=== PATIENT | female | born 1995 | race Caucasian/White ===

== ENCOUNTER 2016-07-16 23:51 | Emergency (ER) | payer MEDICAID ==
[~2016-07-16 23:51] MED LIST: AVEL1TAB PO; FLUC10TA PO; GABA300C3 PO; IBUP200T45 PO; INSUDET SC; INSUHUMDS SC; MICR1TAB16 PO; MUCI600T34 PO; VITA200016 PO; birth control pills PO
[2016-07-17] MEDS ORDERED: MORPHINE 4 MG/ML 1ML SYRINGE As Ordered ONE ×2 (01:24→01:52)
[2016-07-17] MEDS ORDERED: ONDANSETRON 4MG/2ML VIAL (J2405) As Ordered ONE ×2 (01:52→04:46)
[2016-07-17 01:56] LABS: BASO # 0.1 K/mm3 (0.0-0.2); BASO % 1.2 % (0.0-1.0); EOS # 0.2 K/mm3 (0.0-0.50); EOS % 3.1 % (0.0-3.0); LARGE UNSTAINED CELL # 0.3 K/mm3 (0.0-0.4); LARGE UNSTAINED CELL % 3.1 % (0.0-4.0); LYMPH # 4.3 K/mm3 (1.5-6.5); LYMPH % 52.2 % (24.0-44.0); MEAN CORPUSCULAR HEMOGLOBIN 28.4 pg (27.0-33.0); MEAN CORPUSCULAR HGB CONC 34.1 g/dl (32.0-36.5); MEAN CORPUSCULAR VOLUME 83.3 fl (80.0-96.0); MONO # 0.4 K/mm3 (0.0-0.8); MONO % 4.4 % (0.0-5.0); NEUTROPHILS # 2.9 K/mm3 (1.8-7.7); NEUTROPHILS % 36.1 % (36.0-66.0); PLATELET COUNT, AUTOMATED 392 k/mm3 (150-450); RED CELL DISTRIBUTION WIDTH 11.5 % (11.5-14.5); WHITE BLOOD COUNT 8.1 K/mm3 (4.0-10.0)
[2016-07-17 02:02] LABS: VENOUS BASE EXCESS -0.8 (-2.0-2.0); VENOUS O2 SATURATION 95.9 % (60.0-80.0); VENOUS PARTIAL PRESSURE CO2 41.6 mmHg (38.0-50.0); VENOUS PARTIAL PRESSURE O2 81.1 mmHg (30.0-50.0); VENOUS STANDARD HCO3 23.8 MEQ/L; VENOUS TOTAL CO2 25.6 MEQ/L (24.0-28.0)
[2016-07-17 02:18] LABS: CONTROL LINE HCG INT CTR LINE PRESENT
[2016-07-17 02:27] LABS: ALBUMIN 3.6 GM/DL (3.2-5.2); ALBUMIN/GLOBULIN RATIO 1.03 (1.00-1.93); ALKALINE PHOSPHATASE 64 U/L (45-117); ALT/SGPT 25 U/L (12-78); AMYLASE 46 U/L (25-115); ANION GAP 7 MEQ/L (8-16); AST/SGOT 13 U/L (15-37); BILIRUBIN,DIRECT 0.1 MG/DL (0.0-0.2); BILIRUBIN,TOTAL 0.5 MG/DL (0.2-1.0); BLOOD UREA NITROGEN 11 MG/DL (7-18); CALCIUM LEVEL 8.7 MG/DL (8.5-10.1); CARBON DIOXIDE LEVEL 27 MEQ/L (21-32); CHLORIDE LEVEL 105 MEQ/L (98-107); CREATININE FOR GFR 0.66 MG/DL (0.55-1.02); GLOMERULAR FILTRATION RATE > 60.0 (>60); GLUCOSE, FASTING 71 MG/DL (70-105); POTASSIUM SERUM 3.2 MEQ/L (3.5-5.1); SODIUM LEVEL 139 MEQ/L (136-145); TOTAL PROTEIN 7.1 GM/DL (6.4-8.2)
--- NOTE | 2016-07-17 04:40 | REPUSA ---
CLINICAL HISTORY: Abdominal pain. TECHNIQUE: Transabdominal and endovaginal ultrasound of the pelvis was performed. FINDINGS: The uterus is anteverted. The uterus measures 8.9x4.2x5.4 cm. Single intrauterine gestation al sac like structure measuring 3.1 mm. This would correspond to an estimated gestation age of 5 week s. Endometrium measures 13.7 mm in thickness. Right ovary measures 3.4x3x2.3 cm. The left ovary measu res 2.6x2x2.3 cm. IMPRESSION: Early gestational sac like structure in the left lateral aspect of the uterus. No yolk sac is seen. Followup is suggested.
--- NOTE | 2016-07-17 04:59 | EDDOCDS ---
Physician Documentation [facility] Name: Marissa Sanchez Age: 21 yrs Sex: Female : 1995 Arrival Date: 07/16/2016 Time: 23:51 Bed 5 Private MD: Ryan Somers G. Disposition: 07/17/16 04:39 Discharged to Home/Self Care. Impression: related conditions, unspecified, first trimester, Abdominal and pelvic pain. - Condition is Stable. - Discharge Instructions: First Trimester of , Abdominal Pain During , First Trimester of , Ibcu-ph-Mati, Abdominal Pain During , Fzvm-rb-Hrem. - Prescriptions for ZOFRAN ODT 4 mg - dissolve 1 tablet by ORAL route 4 times per day As needed do not chew, do not swallow whole; 10 tablet. - Medication Reconciliation, Local Pharmacy Hours form. - Follow up: Private Physician; When: Today; Reason: Continuance of care. - Problem is an acute exacerbation. - Symptoms have improved. - Notes: FOLLOW UP WITH YOUR PRIMARY CARE IN [place] FOR REFERRALS. Historical: - Allergies: Augmentin; - Home Meds: 1. Humolog sliding scale 15 units (Last dose: 07/16/2016 23:00) 2. Levemir 32 Units HS 3. Vitamin D 2000 units daily Oral 4. BCP daily 5. cetirizine 10 mg oral tab 1 tab once daily - PMHx: Anxiety; Diabetes - IDDM: controlled; - PSHx: none; - Social history: Smoking status: Patient states was never smoker of tobacco. No barriers to communication noted, The patient speaks fluent Malay, Speaks appropriately for age, Preferred Language: Malay. - Family history: Not pertinent. - : The pt / caregiver states he / she is not on anticoagulants. Home medication list is obtained from the patient. - Exposure Risk Screening:: None identified. 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 9 in. (175.26 cm) (R); Pain 8/10; 07/17 04:55 BP 111 / 62; Pulse 85; Resp 18; Temp 98.6(O); Pulse Ox 98% on R/A; Pain 4/10; js15 07/16 23:54 Body Mass Index 23.92 (73.48 kg, 175.26 cm) gr2 MDM: 01:09 NS 0.9% 1000 ml IV at bolus once ordered. mm11 01:09 Ondansetron 4 mg IVP once ordered. mm11 01:09 morphine 4 mg IVP every 30 minutes; Document pain score/vitals after each dose (Hold if mm11 SBP < 90mmHg) x2 ordered. 01:09 -Blood Culture (Adults Only), peripheral from different site, or from device/port/PICC mm11 etc. if present ordered. 01:09 IV Saline Lock ordered. mm11 01:09 Undress patient appropriately for examination ordered. mm11 01:09 Accucheck ordered. mm11 01:10 Amylase Ordered. EDMS 01:10 Basic Metabolic Profile Ordered. EDMS 01:10 CBC with Diff Ordered. EDMS 01:10 HCG,Serum Qualitative Ordered. EDMS 01:10 Lipase Ordered. EDMS 01:10 Liver Profile Ordered. EDMS 01:10 Urinalysis Ordered. EDMS 01:10 Urine Culture Ordered. EDMS 01:10 NOTHING BY MOUTH+DIET ordered. EDMS 01:11 Venous Blood Gas (large pea green tube on ice) Ordered. EDMS 01:11 Osmolality, Serum Ordered. EDMS 01:29 -Blood Culture (Adults Only), peripheral from different site, or from device/port/PICC kb5 etc. if present complete. 01:30 BLOOD CULTURES Ordered. EDMS 01:45 Fingerstick Blood Sugar Ordered. EDMS 01:54 Financial registration complete. hs2 02:42 [facility] Payment Agreement was scanned into Med[employer] and attached to record. hs2 02:46 Basic Metabolic Profile Reviewed. mm11 02:46 CBC with Diff Reviewed. mm11 02:46 HCG,Serum Qualitative Reviewed. mm11 02:46 Liver Profile Reviewed. mm11 02:46 Urinalysis Reviewed. mm11 02:46 Venous Blood Gas (large pea green tube on ice) Reviewed. mm11 02:46 Amylase Reviewed. mm11 02:46 Lipase Reviewed. mm11 02:46 Osmolality, Serum Reviewed. mm11 02:46 Fingerstick Blood Sugar Reviewed. mm11 02:53 Hcg, Serum Quantitative Ordered. EDMS 02:53 1st Trimester Us Ordered. EDMS 03:29 DUPLEX SCAN LIMITED (DOPPLER) Ordered. EDMS 03:29 TRANSVAGINAL US Ordered. EDMS 04:34 Ondansetron 4 mg IVP once ordered. mm11 04:35 Hcg, Serum Quantitative Reviewed. mm11 Administered Medications: 01:20 Drug: morphine 4 mg [morphine 4 mg/mL intravenous cartridge (1 mL)] Route: IVP; Site: cf2 left antecubital; 01:48 Drug: NS 0.9% 1000 ml [sodium chloride 0.9 % intravenous solution] Route: IV; Rate: cf2 bolus; Site: left antecubital; 01:48 Drug: Ondansetron 4 mg [ondansetron HCl 2 mg/mL intravenous solution (2 mL)] Route: cf2 IVP; Site: left antecubital; 03:03 Follow up: Response: No significant change. cf2 02:00 Drug: morphine 4 mg [morphine 4 mg/mL intravenous cartridge (1 mL)] Route: IVP; Site: cf2 left antecubital; 03:03 Follow up: Response: Pain is decreased cf2 04:55 Drug: Ondansetron 4 mg [ondansetron HCl 2 mg/mL intravenous solution (2 mL)] Route: js15 IVP; Site: left antecubital; Signatures: Dispatcher MedHost EDMS Zac Kaye, RN CVICU RN CVICU kb5 Meredith Bello RN RN lf1 Neymar Adame, DO DO mm11 Liliana Miranda RN RN js15 Yvonne Salas, Reg Reg hs2 Ela Rojas RN RN cf2 The chart was reviewed and I authenticate all verbal orders and agree with the evaluation and treatment provided.Attachments: 02:42 [facility] Payment Agreement hs2 MTDD
--- NOTE | 2016-07-17 04:59 | EDDOCDS ---
Nurse's Notes [facility] Name: Marissa Sanchez Age: 21 yrs Sex: Female : 1995 Arrival Date: 07/16/2016 Time: 23:51 Bed 5 Private MD: Ryan Somers G. Diagnosis: related conditions, unspecified, first trimester;Abdominal and pelvic pain Presentation: 07/17 00:09 Presenting complaint: Patient states: BL flank pain that began several hours ago and is lf1 currently 8/10 - burning with urination that has been ongoing for several days. Pt. reports that she is Type I diabetic and he r sugar has been running high today 400-500. Last check was at 2300 at was 483 - she took 15 units Humalog. Acute neurological deficits are not present. Mechanism of Injury: No Mechanism of Injury. Adult Sepsis Screening: Adult Sepsis Screening: Patient's respiratory rate is less than 22. Systolic blood pressure is greater than 100. Patient has a qSOFA score of 0- Negative Sepsis Screen. Suicide/Homicide risk assessment- the patient denies having any suicidal and/or homicidal ideations and does not present with any other emotional, behavioral or mental health complaints. Status: Patient is not a account manager forest service or dependent. Transition of care: patient was not received from another setting of care. 00:09 Acuity: JAYDEN Level 3 lf1 00:09 Method Of Arrival: Walkin/Carried/Asstd lf1 Triage Assessment: 00:14 General: Appears uncomfortable, Behavior is cooperative. Pain: Location: abdomen Pain lf1 currently is 8 out of 10 on a pain scale. HIV screening NA for this visit Offered previously. Neurological: Level of Consciousness is awake, alert, Oriented to person, place, time. Cardiovascular: Chest pain is denied. Respiratory: Respiratory effort is even, unlabored. GI: Reports diarrhea, lower abdominal pain, upper abd pain, nausea. : Reports burning with urination. Musculoskeletal: No deficits noted. 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 Humolog sliding scale 15 units (Last dose: 07/16/2016 23:00) 2. Levemir 32 Units HS 3. Vitamin D 2000 units daily Oral 4. BCP daily 5. cetirizine 10 mg oral tab 1 tab once daily - PMHx: Anxiety; Diabetes - IDDM: controlled; - PSHx: none; - Social history: Smoking status: Patient states was never smoker of tobacco. No barriers to communication noted, The patient speaks fluent South Korean, Speaks appropriately for age, Preferred Language: South Korean. - Family history: Not pertinent. - : The pt / caregiver states he / she is not on anticoagulants. Home medication list is obtained from the patient. - Exposure Risk Screening:: None identified. Screenin:56 Screening information is obtained from the patient. Fall risk: No risks identified. cf2 Assistance ADL's: requires no assistance with activities of daily living. Abuse/DV Screen: The patient / caregiver reports he/she is: not in a situation that causes fear, pain or injury. Nutritional screening: No deficits noted. Advance Directives: Further advance directive information is declined. home support is adequate. Assessment: 02:56 General: Appears in no apparent distress, comfortable, Behavior is appropriate for age, cf2 cooperative. Pain: Denies pain. Neurological: No deficits noted. EENT: No deficits noted. Cardiovascular: No deficits noted. Respiratory: No deficits noted. GI: No deficits noted. : No deficits noted. Derm: No deficits noted. Musculoskeletal: No deficits noted. Injury Description: No known injury. 03:46 General: Appears in no apparent distress, comfortable, Behavior is appropriate for age, js15 cooperative. Pain: Denies pain. Neurological: Level of Consciousness is awake, alert, obeys commands, Oriented to person, place, time. Respiratory: Airway is patent is compromised Respiratory effort is even, unlabored, Respiratory pattern is regular, symmetrical. Derm: Skin is pink, warm & dry. 04:55 Reassessment: Patient appears in no apparent distress at this time. Patient states js15 feeling better. Pt resting on stretcher with family at bedside; respirations even and unlabored; skin normal, warm, dry. Vital Signs: 07/16 23:54 BP 111 / 65; Pulse 102; Resp 18 S; Temp 96.7(O); Pulse Ox 99% on R/A; Weight 73.48 kg gr2 (R); Height 5 ft. 9 in. (175.26 cm) (R); Pain 8/10; 07/17 04:55 BP 111 / 62; Pulse 85; Resp 18; Temp 98.6(O); Pulse Ox 98% on R/A; Pain 4/10; js15 07/16 23:54 Body Mass Index 23.92 (73.48 kg, 175.26 cm) gr2 Vitals: 07/16 23:54 Log In Time: July 16, 2016 at 23:54. gr2 ED Course: 23:53 Patient visited by Bess Vigil. gr2 23:53 Ryan Somers is Private Physician. gr2 23:53 Patient moved to Waiting gr2 23:55 Patient visited by Bess Vigil. gr2 23:55 Patient moved to Pre RCE gr2 07/17 00:13 Triage Initiated lf1 00:39 Kami Garcia RN is Primary Nurse. lf1 00:39 Patient moved to 5 lf1 00:40 Primary Nurse role handed off by Kami Garcia RN cf2 00:40 Ela Rojas RN is Primary Nurse. cf2 00:40 Patient visited by Ela Rojas RN. cf2 00:56 Neymar Adame DO is Attending Physician. mm11 00:56 Patient visited by Neymar Admae DO. mm11 01:08 Patient visited by Neymar Adame DO. mm11 01:48 Patient visited by Ela Rojas RN. cf2 02:18 Patient visited by Ela Rojas RN. cf2 02:18 Patient visited by Ela Rojas RN. cf2 02:42 [facility] Payment Agreement was scanned into [employer] and attached to record. hs2 02:44 Patient visited by Ela Rojas RN. cf2 02:51 Patient visited by Ela Rojas RN. cf2 02:56 The patient / caregiver is instructed regarding the plan of care and ED course. Patient cf2 has correct armband on for positive identification. Placed in gown. Bed in low position. Call light in reach. Side rails up X 1. Side rails up X2. Door closed. Noise minimized. Visitors limited. Lights dimmed. Moved to private room. PO fluids given. Verbal reassurance given. Warm blanket given. Pillow given. 02:56 Inserted saline lock: 20 gauge in left antecubital area and blood collected. The cf2 patient tolerated the procedure well. No procedures done that require assistance. 02:59 Patient moved to Ultrasound en 03:24 Kami Garcia RN is Primary Nurse. en 03:24 Patient moved to 5 en 03:47 Patient visited by Liliana Miranda RN. js15 03:52 Primary Nurse role handed off by Kami Garcia RN kb5 04:29 Patient visited by Neymar Adame DO. mm11 04:56 1st Trimester Us Returned. EDMS Administered Medications: 01:20 Drug: morphine 4 mg [morphine 4 mg/mL intravenous cartridge (1 mL)] Route: IVP; Site: cf2 left antecubital; 01:48 Drug: NS 0.9% 1000 ml [sodium chloride 0.9 % intravenous solution] Route: IV; Rate: cf2 bolus; Site: left antecubital; 01:48 Drug: Ondansetron 4 mg [ondansetron HCl 2 mg/mL intravenous solution (2 mL)] Route: cf2 IVP; Site: left antecubital; 03:03 Follow up: Response: No significant change. cf2 02:00 Drug: morphine 4 mg [morphine 4 mg/mL intravenous cartridge (1 mL)] Route: IVP; Site: cf2 left antecubital; 03:03 Follow up: Response: Pain is decreased cf2 04:55 Drug: Ondansetron 4 mg [ondansetron HCl 2 mg/mL intravenous solution (2 mL)] Route: js15 IVP; Site: left antecubital; Order Results: Lab Order: Amylase; SPEC'M 07/17/16 01:42 Test: AMYLASE; Value: 46; Range: 25-115; Units: U/L; Status: F Lab Order: Basic Metabolic Profile; SPEC'M 07/17/16 01:42 Test: GLUCOSE, FASTING; Value: 71; Range: 70-105; Units: MG/DL; Status: F Test: BLOOD UREA NITROGEN; Value: 11; Range: 7-18; Units: MG/DL; Status: F Test: CREATININE FOR GFR; Value: 0.66; Range: 0.55-1.02; Units: MG/DL; Status: F Test: SODIUM LEVEL; Range: 136-145; Units: MEQ/L; Status: I Test: POTASSIUM SERUM; Range: 3.5-5.1; Units: MEQ/L; Status: I Test: CHLORIDE LEVEL; Range: 98-107; Units: MEQ/L; Status: I Test: CARBON DIOXIDE LEVEL; Range: 21-32; Units: MEQ/L; Status: I Test: ANION GAP; Range: 8-16; Units: MEQ/L; Status: I Test: CALCIUM LEVEL; Range: 8.5-10.1; Units: MG/DL; Status: I Test: GLOMERULAR FILTRATION RATE; Value: > 60.0; Range: >60; Status: F Test: SODIUM LEVEL; Value: 139; Range: 136-145; Units: MEQ/L; Status: F Test: POTASSIUM SERUM; Value: 3.2; Range: 3.5-5.1; Abnormal: Below low normal; Units: MEQ/L; Status: F Test: CHLORIDE LEVEL; Value: 105; Range: 98-107; Units: MEQ/L; Status: F Test: CARBON DIOXIDE LEVEL; Value: 27; Range: 21-32; Units: MEQ/L; Status: F Test: ANION GAP; Value: 7; Range: 8-16; Abnormal: Below low normal; Units: MEQ/L; Status: F Test: CALCIUM LEVEL; Value: 8.7; Range: 8.5-10.1; Units: MG/DL; Status: F Test Note: ; Units are mL/min/1.73 m2 Chronic Kidney Disease Staging per NKF: Stage I & II GFR >=60 Normal to Mildly Decreased Stage III GFR 30-59 Moderately Decreased Stage IV GFR 15-29 Severely Decreased Stage V GFR <15 Very Little GFR Left ESRD GFR <15 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 Lab Order: CBC with Diff; SPEC'M 07/17/16 01:42 Test: WHITE BLOOD COUNT; Value: 8.1; Range: 4.0-10.0; Units: K/mm3; Status: F Test: RED BLOOD COUNT; Value: 4.72; Range: 4.00-5.40; Units: M/mm3; Status: F Test: HEMOGLOBIN; Value: 13.4; Range: 12.0-16.0; Units: g/dl; Status: F Test: HEMATOCRIT; Value: 39.3; Range: 36.0-47.0; Units: %; Status: F Test: MEAN CORPUSCULAR VOLUME; Value: 83.3; Range: 80.0-96.0; Units: fl; Status: F Test: MEAN CORPUSCULAR HEMOGLOBIN; Value: 28.4; Range: 27.0-33.0; Units: pg; Status: F Test: MEAN CORPUSCULAR HGB CONC; Value: 34.1; Range: 32.0-36.5; Units: g/dl; Status: F Test: RED CELL DISTRIBUTION WIDTH; Value: 11.5; Range: 11.5-14.5; Units: %; Status: F Test: PLATELET COUNT, AUTOMATED; Value: 392; Range: 150-450; Units: k/mm3; Status: F Test: NEUTROPHILS %; Value: 36.1; Range: 36.0-66.0; Units: %; Status: F Test: LYMPH %; Value: 52.2; Range: 24.0-44.0; Abnormal: Above high normal; Units: %; Status: F Test: MONO %; Value: 4.4; Range: 0.0-5.0; Units: %; Status: F Test: EOS %; Value: 3.1; Range: 0.0-3.0; Abnormal: Above high normal; Units: %; Status: F Test: BASO %; Value: 1.2; Range: 0.0-1.0; Abnormal: Above high normal; Units: %; Status: F Test: LARGE UNSTAINED CELL %; Value: 3.1; Range: 0.0-4.0; Units: %; Status: F Test: NEUTROPHILS #; Value: 2.9; Range: 1.8-7.7; Units: K/mm3; Status: F Test: LYMPH #; Value: 4.3; Range: 1.5-6.5; Units: K/mm3; Status: F Test: MONO #; Value: 0.4; Range: 0.0-0.8; Units: K/mm3; Status: F Test: EOS #; Value: 0.2; Range: 0.0-0.50; Units: K/mm3; Status: F Test: BASO #; Value: 0.1; Range: 0.0-0.2; Units: K/mm3; Status: F Test: LARGE UNSTAINED CELL #; Value: 0.3; Range: 0.0-0.4; Units: K/mm3; Status: F Lab Order: HCG,Serum Qualitative; [facility] 07/17/16 01:42 Test: HCG, SERUM QUALITATIVE; Value: POSITIVE; Range: NEGATIVE; Abnormal: Abnormal; Status: F Lab Order: Lipase; [facility] 07/17/16 01:42 Test: LIPASE; Value: 128; Range: 73-393; Units: U/L; Status: F Lab Order: Liver Profile; [facility] 07/17/16 01:42 Test: AST/SGOT; Value: 13; Range: 15-37; Abnormal: Below low normal; Units: U/L; Status: F Test: ALT/SGPT; Value: 25; Range: 12-78; Units: U/L; Status: F Test: ALKALINE PHOSPHATASE; Value: 64; Range: 45-117; Units: U/L; Status: F Test: BILIRUBIN,TOTAL; Value: 0.5; Range: 0.2-1.0; Units: MG/DL; Status: F Test: BILIRUBIN,DIRECT; Value: 0.1; Range: 0.0-0.2; Units: MG/DL; Status: F Test: TOTAL PROTEIN; Value: 7.1; Range: 6.4-8.2; Units: GM/DL; Status: F Test: ALBUMIN; Value: 3.6; Range: 3.2-5.2; Units: GM/DL; Status: F Test: ALBUMIN/GLOBULIN RATIO; Value: 1.03; Range: 1.00-1.93; Status: F Lab Order: Urinalysis; [facility] 07/17/16 01:42 Test: APPEARANCE, URINE; Value: CLEAR; Range: CLEAR; Status: F Test: COLOR, URINE; Value: STRAW; Range: YELLOW; Status: F Test: PH,URINE; Value: 6.0; Range: 5.0-9.0; Units: UNITS; Status: F Test: SPECIFIC GRAVITY URINE AUTO; Value: 1.031; Range: 1.002-1.035; Status: F Test: PROTEIN, URINE AUTO; Value: NEGATIVE; Range: NEGATIVE; Units: mg/dL; Status: F Test: GLUCOSE, URINE (UA) AUTO; Value: 3+; Range: NEGATIVE; Abnormal: Above high normal; Units: mg/dL; Status: F Test: KETONE, URINE AUTO; Value: NEGATIVE; Range: NEGATIVE; Units: mg/dL; Status: F Test: UROBILINOGEN, URINE AUTO; Value: 0.2; Range: 0.0-2.0; Units: mg/dL; Status: F Test: BILIRUBIN, URINE AUTO; Value: NEGATIVE; Range: NEGATIVE; Status: F Test: NITRITE, URINE AUTO; Value: NEGATIVE; Range: NEGATIVE; Status: F Test: LEUKOCYTE ESTERASE, URINE AUTO; Value: NEGATIVE; Range: NEGATIVE; Status: F Test: BLOOD, URINE BLOOD; Value: NEGATIVE; Range: NEGATIVE; Status: F Test: WBC, URINE AUTO; Value: 0; Range: 0-3; Units: /HPF; Status: F Test: RBC, URINE AUTO; Value: 1; Range: 0-3; Units: /HPF; Status: F Test: BACTERIA, URINE AUTO; Value: NEGATIVE; Range: NEGATIVE; Status: F Test: SQUAMOUS EPITHELIAL CELL UR AU; Value: 1; Range: 0-6; Units: /HPF; Status: F Test: MUCUS, URINE; Value: SMALL; Range: NEGATIVE; Status: F Test: HYALINE CAST, URINE AUTO; Value: 0; Range: 0-1; Units: /LPF; Status: F Lab Order: Venous Blood Gas (large pea green tube on ice); [facility] 07/17/16 01:42 Test: VENOUS PH; Value: 7.384; Range: 7.330-7.430; Units: UNITS; Status: F Test: VENOUS PARTIAL PRESSURE CO2; Value: 41.6; Range: 38.0-50.0; Units: mmHg; Status: F Test: VENOUS PARTIAL PRESSURE O2; Value: 81.1; Range: 30.0-50.0; Abnormal: Above high normal; Units: mmHg; Status: F Test: VENOUS TOTAL CO2; Value: 25.6; Range: 24.0-28.0; Units: MEQ/L; Status: F Test: VENOUS HCO3; Value: 24.3; Range: 23.0-27.0; Units: MEQ/L; Status: F Test: VENOUS BASE EXCESS; Value: -0.8; Range: -2.0-2.0; Status: F Test: VENOUS STANDARD HCO3; Value: 23.8; Units: MEQ/L; Status: F Test: VENOUS O2 SATURATION; Value: 95.9; Range: 60.0-80.0; Abnormal: Above high normal; Units: %; Status: F Lab Order: Osmolality, Serum; 07/17/16 01:42 Test: OSMOLALITY SERUM; Value: 283; Range: 275-295; Units: MOSM/KG; Status: F Lab Order: Fingerstick Blood Sugar; 07/17/16 01:29 Test: BEDSIDE GLUCOSE; Value: 79; Range: 70-105; Units: MG/DL; Status: F Lab Order: Hcg, Serum Quantitative; 07/17/16 01:41 Test: HCG, SERUM QUANTITATIVE; Value: 1199; Units: MIU/ML; Status: F Test Note: ; GESTATIONAL AGE APPROXIMATE HCG RANGE (MIU/ML) 0.2-1 WEEK 5-50 1-2 WEEKS 50-500 2-3 WEEKS 100-5,000 3-4 WEEKS 500-10,000 4-5 WEEKS 1,000-50,000 5-6 WEEKS 10,000-100,000 6-8 WEEKS 15,000-200,000 2-3 MONTHS 10,000-100,000 NON FEMALES LESS THAN 3.0 Patient samples may contain human heterophilic antibodies that could react with immunoassays to give falsely elevated or depressed results. This assay has been designed to minimize interference from heterophilic antibodies. Elevated hCG levels have also been associated with trophoblastic disease and nontrophoblastic neoplasms. The possibility of having these diseases should be considered before a diagnosis of is made. This test is not intended for use as a surrogate marker for aiding in the diagnosis or monitoring the treatment of cancer patients. [employer] methodology. Radiology Order: 1st Trimester Us Test: 1st Trimester Us REASON FOR EXAMINATION: abd pain, ; ; CLINICAL HISTORY: Abdominal pain.; TECHNIQUE: Transabdominal and endovaginal ultrasound of the pelvis was; performed.; FINDINGS: The uterus is anteverted. The uterus measures 8.9x4.2x5.4 cm. Single intrauterine gestation; al sac like structure measuring 3.1 mm. This would correspond to an estimated gestation age of 5 week; s. Endometrium measures 13.7 mm in thickness. Right ovary measures 3.4x3x2.3 cm. The left ovary measu; res 2.6x2x2.3 cm.; IMPRESSION:; Early gestational sac like structure in the left lateral aspect of the uterus.; No yolk sac is seen.; Followup is suggested.; ; ; Outcome: 04:39 Discharge ordered by Provider. mm11 04:57 Discharge Assessment: Patient awake, alert and oriented x 3. No cognitive and/or js15 functional deficits noted. Patient verbalized understanding of disposition instructions. patient administered narcotics - no. The following High Risk Discharge criteria are identified: None. Discharged to home ambulatory, with family. Condition: stable. Discharge instructions given to patient, Instructed on discharge instructions, follow up and referral plans. medication usage, Demonstrated understanding of instructions, medications, Pt was receptive of discharge instructions/ teaching. Prescriptions given X 1. Ultrasound Study completed. Property sent home with patient. 04:58 Patient left the ED. js15 Signatures: Dispatcher Med[employer] EDMS Zac Kaye, LOOM FIXER LOOM FIXER kb5 Meredith Bello,RN RN lf1 Neymar Adame, DO mm11 Bess Vigil gr2 Liliana Miranda,RN RN js15 Kami Perla Hillary, Reg Reg hs2 Ela Rojas,RN RN cf2 MTDD
--- NOTE | 2016-07-19 05:59 | EDDOCDS ---
Nurse's Notes [facility] Name: Marissa Sanchez Age: 21 yrs Sex: Female : 1995 Arrival Date: 07/16/2016 Time: 23:51 Bed 5 Private MD: Ryan Somers G. Diagnosis: related conditions, unspecified, first trimester;Abdominal and pelvic pain Presentation: 07/17 00:09 Presenting complaint: Patient states: BL flank pain that began several hours ago and is lf1 currently 8/10 - burning with urination that has been ongoing for several days. Pt. reports that she is Type I diabetic and he r sugar has been running high today 400-500. Last check was at 2300 at was 483 - she took 15 units Humalog. Acute neurological deficits are not present. Mechanism of Injury: No Mechanism of Injury. Adult Sepsis Screening: Adult Sepsis Screening: Patient's respiratory rate is less than 22. Systolic blood pressure is greater than 100. Patient has a qSOFA score of 0- Negative Sepsis Screen. Suicide/Homicide risk assessment- the patient denies having any suicidal and/or homicidal ideations and does not present with any other emotional, behavioral or mental health complaints. Status: Patient is not a director of volunteer services or dependent. Transition of care: patient was not received from another setting of care. 00:09 Acuity: JAYDEN Level 3 lf1 00:09 Method Of Arrival: Walkin/Carried/Asstd lf1 Triage Assessment: 00:14 General: Appears uncomfortable, Behavior is cooperative. Pain: Location: abdomen Pain lf1 currently is 8 out of 10 on a pain scale. HIV screening NA for this visit Offered previously. Neurological: Level of Consciousness is awake, alert, Oriented to person, place, time. Cardiovascular: Chest pain is denied. Respiratory: Respiratory effort is even, unlabored. GI: Reports diarrhea, lower abdominal pain, upper abd pain, nausea. : Reports burning with urination. Musculoskeletal: No deficits noted. 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 Humolog sliding scale 15 units (Last dose: 07/16/2016 23:00) 2. Levemir 32 Units HS 3. Vitamin D 2000 units daily Oral 4. BCP daily 5. cetirizine 10 mg oral tab 1 tab once daily - PMHx: Anxiety; Diabetes - IDDM: controlled; - PSHx: none; - Social history: Smoking status: Patient states was never smoker of tobacco. No barriers to communication noted, The patient speaks fluent Egyptian, Speaks appropriately for age, Preferred Language: Egyptian. - Family history: Not pertinent. - : The pt / caregiver states he / she is not on anticoagulants. Home medication list is obtained from the patient. - Exposure Risk Screening:: None identified. Screenin:56 Screening information is obtained from the patient. Fall risk: No risks identified. cf2 Assistance ADL's: requires no assistance with activities of daily living. Abuse/DV Screen: The patient / caregiver reports he/she is: not in a situation that causes fear, pain or injury. Nutritional screening: No deficits noted. Advance Directives: Further advance directive information is declined. home support is adequate. Assessment: 02:56 General: Appears in no apparent distress, comfortable, Behavior is appropriate for age, cf2 cooperative. Pain: Denies pain. Neurological: No deficits noted. EENT: No deficits noted. Cardiovascular: No deficits noted. Respiratory: No deficits noted. GI: No deficits noted. : No deficits noted. Derm: No deficits noted. Musculoskeletal: No deficits noted. Injury Description: No known injury. 03:46 General: Appears in no apparent distress, comfortable, Behavior is appropriate for age, js15 cooperative. Pain: Denies pain. Neurological: Level of Consciousness is awake, alert, obeys commands, Oriented to person, place, time. Respiratory: Airway is patent is compromised Respiratory effort is even, unlabored, Respiratory pattern is regular, symmetrical. Derm: Skin is pink, warm & dry. 04:55 Reassessment: Patient appears in no apparent distress at this time. Patient states js15 feeling better. Pt resting on stretcher with family at bedside; respirations even and unlabored; skin normal, warm, dry. Vital Signs: 07/16 23:54 BP 111 / 65; Pulse 102; Resp 18 S; Temp 96.7(O); Pulse Ox 99% on R/A; Weight 73.48 kg gr2 (R); Height 5 ft. 9 in. (175.26 cm) (R); Pain 8/10; 07/17 04:55 BP 111 / 62; Pulse 85; Resp 18; Temp 98.6(O); Pulse Ox 98% on R/A; Pain 4/10; js15 07/16 23:54 Body Mass Index 23.92 (73.48 kg, 175.26 cm) gr2 Vitals: 07/16 23:54 Log In Time: July 16, 2016 at 23:54. gr2 ED Course: 23:53 Patient visited by Bess Vigil. gr2 23:53 Ryan Somers is Private Physician. gr2 23:53 Patient moved to Waiting gr2 23:55 Patient visited by Bess Vigil. gr2 23:55 Patient moved to Pre RCE gr2 07/17 00:13 Triage Initiated lf1 00:39 Kami Garcia RN is Primary Nurse. lf1 00:39 Patient moved to 5 lf1 00:40 Primary Nurse role handed off by Kami Garcia RN cf2 00:40 Ela Rojas RN is Primary Nurse. cf2 00:40 Patient visited by Ela Rojas RN. cf2 00:56 Neymar Adame DO is Attending Physician. mm11 00:56 Patient visited by Neymar Adame DO. mm11 01:08 Patient visited by Neymar Adame DO. mm11 01:48 Patient visited by Ela Rojas RN. cf2 02:18 Patient visited by Ela Rojas RN. cf2 02:18 Patient visited by Ela Rojas RN. cf2 02:42 [facility] Payment Agreement was scanned into Open [employer] and attached to record. hs2 02:44 Patient visited by Ela Rojas RN. cf2 02:51 Patient visited by Ela Rojas RN. cf2 02:56 The patient / caregiver is instructed regarding the plan of care and ED course. Patient cf2 has correct armband on for positive identification. Placed in gown. Bed in low position. Call light in reach. Side rails up X 1. Side rails up X2. Door closed. Noise minimized. Visitors limited. Lights dimmed. Moved to private room. PO fluids given. Verbal reassurance given. Warm blanket given. Pillow given. 02:56 Inserted saline lock: 20 gauge in left antecubital area and blood collected. The cf2 patient tolerated the procedure well. No procedures done that require assistance. 02:59 Patient moved to Ultrasound en 03:24 Kami Garcia RN is Primary Nurse. en 03:24 Patient moved to 5 en 03:47 Patient visited by Liliana Miranda RN. js15 03:52 Primary Nurse role handed off by Kami Garcia RN kb5 04:29 Patient visited by Neymar Adame DO. mm11 04:56 1st Trimester Us Returned. EDMS 12:23 T-Sheet-- Draft Copy was scanned into Open [employer] and attached to record. gb Administered Medications: 01:20 Drug: morphine 4 mg [morphine 4 mg/mL intravenous cartridge (1 mL)] Route: IVP; Site: cf2 left antecubital; 01:48 Drug: NS 0.9% 1000 ml [sodium chloride 0.9 % intravenous solution] Route: IV; Rate: cf2 bolus; Site: left antecubital; 01:48 Drug: Ondansetron 4 mg [ondansetron HCl 2 mg/mL intravenous solution (2 mL)] Route: cf2 IVP; Site: left antecubital; 03:03 Follow up: Response: No significant change. cf2 02:00 Drug: morphine 4 mg [morphine 4 mg/mL intravenous cartridge (1 mL)] Route: IVP; Site: cf2 left antecubital; 03:03 Follow up: Response: Pain is decreased cf2 04:55 Drug: Ondansetron 4 mg [ondansetron HCl 2 mg/mL intravenous solution (2 mL)] Route: js15 IVP; Site: left antecubital; Order Results: Lab Order: Amylase; SPEC'M 07/17/16 01:42 Test: AMYLASE; Value: 46; Range: 25-115; Units: U/L; Status: F Lab Order: Basic Metabolic Profile; SPEC'M 07/17/16 01:42 Test: GLUCOSE, FASTING; Value: 71; Range: 70-105; Units: MG/DL; Status: F Test: BLOOD UREA NITROGEN; Value: 11; Range: 7-18; Units: MG/DL; Status: F Test: CREATININE FOR GFR; Value: 0.66; Range: 0.55-1.02; Units: MG/DL; Status: F Test: SODIUM LEVEL; Range: 136-145; Units: MEQ/L; Status: I Test: POTASSIUM SERUM; Range: 3.5-5.1; Units: MEQ/L; Status: I Test: CHLORIDE LEVEL; Range: 98-107; Units: MEQ/L; Status: I Test: CARBON DIOXIDE LEVEL; Range: 21-32; Units: MEQ/L; Status: I Test: ANION GAP; Range: 8-16; Units: MEQ/L; Status: I Test: CALCIUM LEVEL; Range: 8.5-10.1; Units: MG/DL; Status: I Test: GLOMERULAR FILTRATION RATE; Value: > 60.0; Range: >60; Status: F Test: SODIUM LEVEL; Value: 139; Range: 136-145; Units: MEQ/L; Status: F Test: POTASSIUM SERUM; Value: 3.2; Range: 3.5-5.1; Abnormal: Below low normal; Units: MEQ/L; Status: F Test: CHLORIDE LEVEL; Value: 105; Range: 98-107; Units: MEQ/L; Status: F Test: CARBON DIOXIDE LEVEL; Value: 27; Range: 21-32; Units: MEQ/L; Status: F Test: ANION GAP; Value: 7; Range: 8-16; Abnormal: Below low normal; Units: MEQ/L; Status: F Test: CALCIUM LEVEL; Value: 8.7; Range: 8.5-10.1; Units: MG/DL; Status: F Test Note: ; Units are mL/min/1.73 m2 Chronic Kidney Disease Staging per NKF: Stage I & II GFR >=60 Normal to Mildly Decreased Stage III GFR 30-59 Moderately Decreased Stage IV GFR 15-29 Severely Decreased Stage V GFR <15 Very Little GFR Left ESRD GFR <15 on ORACLE DATABASE ADMINISTRATOR Lab Order: CBC with Diff; SPEC'M 07/17/16 01:42 Test: WHITE BLOOD COUNT; Value: 8.1; Range: 4.0-10.0; Units: K/mm3; Status: F Test: RED BLOOD COUNT; Value: 4.72; Range: 4.00-5.40; Units: M/mm3; Status: F Test: HEMOGLOBIN; Value: 13.4; Range: 12.0-16.0; Units: g/dl; Status: F Test: HEMATOCRIT; Value: 39.3; Range: 36.0-47.0; Units: %; Status: F Test: MEAN CORPUSCULAR VOLUME; Value: 83.3; Range: 80.0-96.0; Units: fl; Status: F Test: MEAN CORPUSCULAR HEMOGLOBIN; Value: 28.4; Range: 27.0-33.0; Units: pg; Status: F Test: MEAN CORPUSCULAR HGB CONC; Value: 34.1; Range: 32.0-36.5; Units: g/dl; Status: F Test: RED CELL DISTRIBUTION WIDTH; Value: 11.5; Range: 11.5-14.5; Units: %; Status: F Test: PLATELET COUNT, AUTOMATED; Value: 392; Range: 150-450; Units: k/mm3; Status: F Test: NEUTROPHILS %; Value: 36.1; Range: 36.0-66.0; Units: %; Status: F Test: LYMPH %; Value: 52.2; Range: 24.0-44.0; Abnormal: Above high normal; Units: %; Status: F Test: MONO %; Value: 4.4; Range: 0.0-5.0; Units: %; Status: F Test: EOS %; Value: 3.1; Range: 0.0-3.0; Abnormal: Above high normal; Units: %; Status: F Test: BASO %; Value: 1.2; Range: 0.0-1.0; Abnormal: Above high normal; Units: %; Status: F Test: LARGE UNSTAINED CELL %; Value: 3.1; Range: 0.0-4.0; Units: %; Status: F Test: NEUTROPHILS #; Value: 2.9; Range: 1.8-7.7; Units: K/mm3; Status: F Test: LYMPH #; Value: 4.3; Range: 1.5-6.5; Units: K/mm3; Status: F Test: MONO #; Value: 0.4; Range: 0.0-0.8; Units: K/mm3; Status: F Test: EOS #; Value: 0.2; Range: 0.0-0.50; Units: K/mm3; Status: F Test: BASO #; Value: 0.1; Range: 0.0-0.2; Units: K/mm3; Status: F Test: LARGE UNSTAINED CELL #; Value: 0.3; Range: 0.0-0.4; Units: K/mm3; Status: F Lab Order: HCG,Serum Qualitative; SPEC' 07/17/16 01:42 Test: HCG, SERUM QUALITATIVE; Value: POSITIVE; Range: NEGATIVE; Abnormal: Abnormal; Status: F Lab Order: Lipase; SPEC' 07/17/16 01:42 Test: LIPASE; Value: 128; Range: 73-393; Units: U/L; Status: F Lab Order: Liver Profile; SPEC' 07/17/16 01:42 Test: AST/SGOT; Value: 13; Range: 15-37; Abnormal: Below low normal; Units: U/L; Status: F Test: ALT/SGPT; Value: 25; Range: 12-78; Units: U/L; Status: F Test: ALKALINE PHOSPHATASE; Value: 64; Range: 45-117; Units: U/L; Status: F Test: BILIRUBIN,TOTAL; Value: 0.5; Range: 0.2-1.0; Units: MG/DL; Status: F Test: BILIRUBIN,DIRECT; Value: 0.1; Range: 0.0-0.2; Units: MG/DL; Status: F Test: TOTAL PROTEIN; Value: 7.1; Range: 6.4-8.2; Units: GM/DL; Status: F Test: ALBUMIN; Value: 3.6; Range: 3.2-5.2; Units: GM/DL; Status: F Test: ALBUMIN/GLOBULIN RATIO; Value: 1.03; Range: 1.00-1.93; Status: F Lab Order: Urinalysis; SPEC' 07/17/16 01:42 Test: APPEARANCE, URINE; Value: CLEAR; Range: CLEAR; Status: F Test: COLOR, URINE; Value: STRAW; Range: YELLOW; Status: F Test: PH,URINE; Value: 6.0; Range: 5.0-9.0; Units: UNITS; Status: F Test: SPECIFIC GRAVITY URINE AUTO; Value: 1.031; Range: 1.002-1.035; Status: F Test: PROTEIN, URINE AUTO; Value: NEGATIVE; Range: NEGATIVE; Units: mg/dL; Status: F Test: GLUCOSE, URINE (UA) AUTO; Value: 3+; Range: NEGATIVE; Abnormal: Above high normal; Units: mg/dL; Status: F Test: KETONE, URINE AUTO; Value: NEGATIVE; Range: NEGATIVE; Units: mg/dL; Status: F Test: UROBILINOGEN, URINE AUTO; Value: 0.2; Range: 0.0-2.0; Units: mg/dL; Status: F Test: BILIRUBIN, URINE AUTO; Value: NEGATIVE; Range: NEGATIVE; Status: F Test: NITRITE, URINE AUTO; Value: NEGATIVE; Range: NEGATIVE; Status: F Test: LEUKOCYTE ESTERASE, URINE AUTO; Value: NEGATIVE; Range: NEGATIVE; Status: F Test: BLOOD, URINE BLOOD; Value: NEGATIVE; Range: NEGATIVE; Status: F Test: WBC, URINE AUTO; Value: 0; Range: 0-3; Units: /HPF; Status: F Test: RBC, URINE AUTO; Value: 1; Range: 0-3; Units: /HPF; Status: F Test: BACTERIA, URINE AUTO; Value: NEGATIVE; Range: NEGATIVE; Status: F Test: SQUAMOUS EPITHELIAL CELL UR AU; Value: 1; Range: 0-6; Units: /HPF; Status: F Test: MUCUS, URINE; Value: SMALL; Range: NEGATIVE; Status: F Test: HYALINE CAST, URINE AUTO; Value: 0; Range: 0-1; Units: /LPF; Status: F Lab Order: Urine Culture; SPEC'M 07/17/16 01:42 Test: URINE CULTURE; Value: <EXTERNAL COMMENT eCWMed> FULL REPORT IN LAB NOTES (eCW and Medent).; Status: F Test: URINE CULTURE; Value: URINE CULTURE RESULT NO GROWTH CLINICAL SIGNIFICANCE 1 ORGANISM; Status: F Lab Order: Venous Blood Gas (large pea green tube on ice); SPEC'M 07/17/16 01:42 Test: VENOUS PH; Value: 7.384; Range: 7.330-7.430; Units: UNITS; Status: F Test: VENOUS PARTIAL PRESSURE CO2; Value: 41.6; Range: 38.0-50.0; Units: mmHg; Status: F Test: VENOUS PARTIAL PRESSURE O2; Value: 81.1; Range: 30.0-50.0; Abnormal: Above high normal; Units: mmHg; Status: F Test: VENOUS TOTAL CO2; Value: 25.6; Range: 24.0-28.0; Units: MEQ/L; Status: F Test: VENOUS HCO3; Value: 24.3; Range: 23.0-27.0; Units: MEQ/L; Status: F Test: VENOUS BASE EXCESS; Value: -0.8; Range: -2.0-2.0; Status: F Test: VENOUS STANDARD HCO3; Value: 23.8; Units: MEQ/L; Status: F Test: VENOUS O2 SATURATION; Value: 95.9; Range: 60.0-80.0; Abnormal: Above high normal; Units: %; Status: F Lab Order: Osmolality, Serum; [facility] 07/17/16 01:42 Test: OSMOLALITY SERUM; Value: 283; Range: 275-295; Units: MOSM/KG; Status: F Lab Order: BLOOD CULTURES; [facility] 07/17/16 01:42 Test: BLOOD CULTURE; Value: No growth after 24 hours . All specimens observed; Status: F Test: BLOOD CULTURE; Value: for 5 days. Results final at that time.; Status: F Test: BLOOD CULTURE; Value: No Growth after 48 hours. All Specimens observed; Status: F Test: BLOOD CULTURE; Value: for 7 days. Results final at that time.; Status: F Lab Order: Fingerstick Blood Sugar; [facility] 07/17/16 01:29 Test: BEDSIDE GLUCOSE; Value: 79; Range: 70-105; Units: MG/DL; Status: F Lab Order: Hcg, Serum Quantitative; [facility] 07/17/16 01:41 Test: HCG, SERUM QUANTITATIVE; Value: 1199; Units: MIU/ML; Status: F Test Note: ; GESTATIONAL AGE APPROXIMATE HCG RANGE (MIU/ML) 0.2-1 WEEK 5-50 1-2 WEEKS 50-500 2-3 WEEKS 100-5,000 3-4 WEEKS 500-10,000 4-5 WEEKS 1,000-50,000 5-6 WEEKS 10,000-100,000 6-8 WEEKS 15,000-200,000 2-3 MONTHS 10,000-100,000 NON FEMALES LESS THAN 3.0 Patient samples may contain human heterophilic antibodies that could react with immunoassays to give falsely elevated or depressed results. This assay has been designed to minimize interference from heterophilic antibodies. Elevated hCG levels have also been associated with trophoblastic disease and nontrophoblastic neoplasms. The possibility of having these diseases should be considered before a diagnosis of is made. This test is not intended for use as a surrogate marker for aiding in the diagnosis or monitoring the treatment of cancer patients. Siemens Blackboard methodology. Radiology Order: 1st Trimester Us Test: 1st Trimester Us REASON FOR EXAMINATION: abd pain, ; ; CLINICAL HISTORY: Abdominal pain.; TECHNIQUE: Transabdominal and endovaginal ultrasound of the pelvis was; performed.; FINDINGS: The uterus is anteverted. The uterus measures 8.9x4.2x5.4 cm. Single intrauterine gestation; al sac like structure measuring 3.1 mm. This would correspond to an estimated gestation age of 5 week; s. Endometrium measures 13.7 mm in thickness. Right ovary measures 3.4x3x2.3 cm. The left ovary measu; res 2.6x2x2.3 cm.; IMPRESSION:; Early gestational sac like structure in the left lateral aspect of the uterus.; No yolk sac is seen.; Followup is suggested.; ; ; Outcome: 04:39 Discharge ordered by Provider. mm11 04:57 Discharge Assessment: Patient awake, alert and oriented x 3. No cognitive and/or js15 functional deficits noted. Patient verbalized understanding of disposition instructions. patient administered narcotics - no. The following High Risk Discharge criteria are identified: None. Discharged to home ambulatory, with family. Condition: stable. Discharge instructions given to patient, Instructed on discharge instructions, follow up and referral plans. medication usage, Demonstrated understanding of instructions, medications, Pt was receptive of discharge instructions/ teaching. Prescriptions given X 1. Ultrasound Study completed. Property sent home with patient. 04:58 Patient left the ED. js15 Signatures: Dispatcher [employer] EDMS Bee Eagle, Reg Reg gb Zac Kaye, BOXING MACHINE OPERATOR BOXING MACHINE OPERATOR kb5 Meredith Bello RN RN lf1 Neymar Adame DO DO mm11 Bess Vigil gr2 Liliana Miranda,RN RN js15 Kami Perla Hillary, Reg Reg hs2 Ela Rojas,RN RN cf2 Chart Complete MTDD
--- NOTE | 2016-07-19 05:59 | EDDOCDS ---
Physician Documentation [facility] Name: Marissa Sanchez Age: 21 yrs Sex: Female : 1995 Arrival Date: 07/16/2016 Time: 23:51 Bed 5 Private MD: Ryan Somers G. Disposition: 07/17/16 04:39 Discharged to Home/Self Care. Impression: related conditions, unspecified, first trimester, Abdominal and pelvic pain. - Condition is Stable. - Discharge Instructions: First Trimester of , Abdominal Pain During , First Trimester of , [id number], Abdominal Pain During , [id number]. - Prescriptions for ZOFRAN ODT 4 mg - dissolve 1 tablet by ORAL route 4 times per day As needed do not chew, do not swallow whole; 10 tablet. - Medication Reconciliation, Local Pharmacy Hours form. - Follow up: Private Physician; When: Today; Reason: Continuance of care. - Problem is an acute exacerbation. - Symptoms have improved. - Notes: FOLLOW UP WITH YOUR PRIMARY CARE IN [place] FOR REFERRALS. Historical: - Allergies: Augmentin; - Home Meds: 1. Humolog sliding scale 15 units (Last dose: 07/16/2016 23:00) 2. Levemir 32 Units HS 3. Vitamin D 2000 units daily Oral 4. BCP daily 5. cetirizine 10 mg oral tab 1 tab once daily - PMHx: Anxiety; Diabetes - IDDM: controlled; - PSHx: none; - Social history: Smoking status: Patient states was never smoker of tobacco. No barriers to communication noted, The patient speaks fluent Turkmen, Speaks appropriately for age, Preferred Language: Turkmen. - Family history: Not pertinent. - : The pt / caregiver states he / she is not on anticoagulants. Home medication list is obtained from the patient. - Exposure Risk Screening:: None identified. 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 9 in. (175.26 cm) (R); Pain 8/10; 07/17 04:55 BP 111 / 62; Pulse 85; Resp 18; Temp 98.6(O); Pulse Ox 98% on R/A; Pain 4/10; js15 07/16 23:54 Body Mass Index 23.92 (73.48 kg, 175.26 cm) gr2 MDM: 01:09 NS 0.9% 1000 ml IV at bolus once ordered. mm11 01:09 Ondansetron 4 mg IVP once ordered. mm11 01:09 morphine 4 mg IVP every 30 minutes; Document pain score/vitals after each dose (Hold if mm11 SBP < 90mmHg) x2 ordered. 01:09 -Blood Culture (Adults Only), peripheral from different site, or from device/port/PICC mm11 etc. if present ordered. 01:09 IV Saline Lock ordered. mm11 01:09 Undress patient appropriately for examination ordered. mm11 01:09 Accucheck ordered. mm11 01:10 Amylase Ordered. EDMS 01:10 Basic Metabolic Profile Ordered. EDMS 01:10 CBC with Diff Ordered. EDMS 01:10 HCG,Serum Qualitative Ordered. EDMS 01:10 Lipase Ordered. EDMS 01:10 Liver Profile Ordered. EDMS 01:10 Urinalysis Ordered. EDMS 01:10 Urine Culture Ordered. EDMS 01:10 NOTHING BY MOUTH+DIET ordered. EDMS 01:11 Venous Blood Gas (large pea green tube on ice) Ordered. EDMS 01:11 Osmolality, Serum Ordered. EDMS 01:29 -Blood Culture (Adults Only), peripheral from different site, or from device/port/PICC kb5 etc. if present complete. 01:30 BLOOD CULTURES Ordered. EDMS 01:45 Fingerstick Blood Sugar Ordered. EDMS 01:54 Financial registration complete. hs2 02:42 [facility] [place] was [place] into [employer] and attached to record. hs2 02:46 Basic Metabolic Profile Reviewed. mm11 02:46 CBC with Diff Reviewed. mm11 02:46 HCG,Serum Qualitative Reviewed. mm11 02:46 Liver Profile Reviewed. mm11 02:46 Urinalysis Reviewed. mm11 02:46 Venous Blood Gas (large pea green tube on ice) Reviewed. mm11 02:46 Amylase Reviewed. mm11 02:46 Lipase Reviewed. mm11 02:46 Osmolality, Serum Reviewed. mm11 02:46 Fingerstick Blood Sugar Reviewed. mm11 02:53 Hcg, Serum Quantitative Ordered. EDMS 02:53 1st Trimester Us Ordered. EDMS 03:29 DUPLEX SCAN LIMITED (DOPPLER) Ordered. EDMS 03:29 TRANSVAGINAL US Ordered. EDMS 04:34 Ondansetron 4 mg IVP once ordered. mm11 04:35 Hcg, Serum Quantitative Reviewed. mm11 12:23 T-Sheet-- Draft Copy was scanned into [employer] and attached to record. gb Administered Medications: 01:20 Drug: morphine 4 mg [morphine 4 mg/mL intravenous cartridge (1 mL)] Route: IVP; Site: cf2 left antecubital; 01:48 Drug: NS 0.9% 1000 ml [sodium chloride 0.9 % intravenous solution] Route: IV; Rate: cf2 bolus; Site: left antecubital; 01:48 Drug: Ondansetron 4 mg [ondansetron HCl 2 mg/mL intravenous solution (2 mL)] Route: cf2 IVP; Site: left antecubital; 03:03 Follow up: Response: No significant change. cf2 02:00 Drug: morphine 4 mg [morphine 4 mg/mL intravenous cartridge (1 mL)] Route: IVP; Site: cf2 left antecubital; 03:03 Follow up: Response: Pain is decreased cf2 04:55 Drug: Ondansetron 4 mg [ondansetron HCl 2 mg/mL intravenous solution (2 mL)] Route: js15 IVP; Site: left antecubital; Signatures: Dispatcher [employer] EDMS Bee Eagle, Reg Reg gb Zac Kaye, IRON GUARDRAIL INSTALLER IRON GUARDRAIL INSTALLER kb5 Meredith Bello,RN RN lf1 Neymar Adame, DO mm11 Liliana MirandaRN RN js15 Yvonne Salas, Reg Reg hs2 Ela Rojas,RN RN cf2 The chart was reviewed and I authenticate all verbal orders and agree with the evaluation and treatment provided.Attachments: 02:42 [facility] Payment Agreement hs2 12:23 T-Sheet-- Draft Copy gb Chart Complete MTDD
--- NOTE | 2016-07-19 05:59 | EDDOCDS ---
Physician Documentation [facility] Name: Marissa Sanchez Age: 21 yrs Sex: Female : 1995 Arrival Date: 07/16/2016 Time: 23:51 Bed 5 Private MD: Ryan Somers G. Disposition: 07/17/16 04:39 Discharged to Home/Self Care. Impression: related conditions, unspecified, first trimester, Abdominal and pelvic pain. - Condition is Stable. - Discharge Instructions: First Trimester of , Abdominal Pain During , First Trimester of , [id number]-[id number], Abdominal Pain During , Zofd-sm-Mpby. - Prescriptions for ZOFRAN ODT 4 mg - dissolve 1 tablet by ORAL route 4 times per day As needed do not chew, do not swallow whole; 10 tablet. - Medication Reconciliation, Local Pharmacy Hours form. - Follow up: Private Physician; When: Today; Reason: Continuance of care. - Problem is an acute exacerbation. - Symptoms have improved. - Notes: FOLLOW UP WITH YOUR PRIMARY CARE IN [place] FOR REFERRALS. Historical: - Allergies: Augmentin; - Home Meds: 1. Humolog sliding scale 15 units (Last dose: 07/16/2016 23:00) 2. Levemir 32 Units HS 3. Vitamin D 2000 units daily Oral 4. BCP daily 5. cetirizine 10 mg oral tab 1 tab once daily - PMHx: Anxiety; Diabetes - IDDM: controlled; - PSHx: none; - Social history: Smoking status: Patient states was never smoker of tobacco. No barriers to communication noted, The patient speaks fluent Luxembourgish, Speaks appropriately for age, Preferred Language: Luxembourgish. - Family history: Not pertinent. - : The pt / caregiver states he / she is not on anticoagulants. Home medication list is obtained from the patient. - Exposure Risk Screening:: None identified. FACILITIES AND GROUNDS DIRECTOR: 07/17 00:14 0, Living 0, LMP 05/29/2016 lf1 Vital Signs: 07/16 23:54 BP 111 / 65; Pulse 102; Resp 18 S; Temp 96.7(O); Pulse Ox 99% on R/A; Weight 73.48 kg / gr2 162 lbs (R); Height 5 ft. 9 in. (175.26 cm) (R); Pain 8/10; 07/17 04:55 BP 111 / 62; Pulse 85; Resp 18; Temp 98.6(O); Pulse Ox 98% on R/A; Pain 4/10; js15 07/16 23:54 Body Mass Index 23.92 (73.48 kg, 175.26 cm) gr2 MDM: 01:09 NS 0.9% 1000 ml IV at bolus once ordered. mm11 01:09 Ondansetron 4 mg IVP once ordered. mm11 01:09 morphine 4 mg IVP every 30 minutes; Document pain score/vitals after each dose (Hold if mm11 SBP < 90mmHg) x2 ordered. 01:09 -Blood Culture (Adults Only), peripheral from different site, or from device/port/PICC mm11 etc. if present ordered. 01:09 IV Saline Lock ordered. mm11 01:09 Undress patient appropriately for examination ordered. mm11 01:09 Accucheck ordered. mm11 01:10 Amylase Ordered. EDMS 01:10 Basic Metabolic Profile Ordered. EDMS 01:10 CBC with Diff Ordered. EDMS 01:10 HCG,Serum Qualitative Ordered. EDMS 01:10 Lipase Ordered. EDMS 01:10 Liver Profile Ordered. EDMS 01:10 Urinalysis Ordered. EDMS 01:10 Urine Culture Ordered. EDMS 01:10 NOTHING BY MOUTH+DIET ordered. EDMS 01:11 Venous Blood Gas (large pea green tube on ice) Ordered. EDMS 01:11 Osmolality, Serum Ordered. EDMS 01:29 -Blood Culture (Adults Only), peripheral from different site, or from device/port/PICC kb5 etc. if present complete. 01:30 BLOOD CULTURES Ordered. EDMS 01:45 Fingerstick Blood Sugar Ordered. EDMS 01:54 Financial registration complete. hs2 02:42 [facility] [place] Agreement was scanned into [employer] and attached to record. hs2 02:46 Basic Metabolic Profile Reviewed. mm11 02:46 CBC with Diff Reviewed. mm11 02:46 HCG,Serum Qualitative Reviewed. mm11 02:46 Liver Profile Reviewed. mm11 02:46 Urinalysis Reviewed. mm11 02:46 Venous Blood Gas (large pea green tube on ice) Reviewed. mm11 02:46 Amylase Reviewed. mm11 02:46 Lipase Reviewed. mm11 02:46 Osmolality, Serum Reviewed. mm11 02:46 Fingerstick Blood Sugar Reviewed. mm11 02:53 Hcg, Serum Quantitative Ordered. EDMS 02:53 1st Trimester Us Ordered. EDMS 03:29 DUPLEX SCAN LIMITED (DOPPLER) Ordered. EDMS 03:29 TRANSVAGINAL US Ordered. EDMS 04:34 Ondansetron 4 mg IVP once ordered. mm11 04:35 Hcg, Serum Quantitative Reviewed. mm11 12:23 T-Sheet-- Draft Copy was scanned into [employer] and attached to record. gb Administered Medications: 01:20 Drug: morphine 4 mg [morphine 4 mg/mL intravenous cartridge (1 mL)] Route: IVP; Site: cf2 left antecubital; 01:48 Drug: NS 0.9% 1000 ml [sodium chloride 0.9 % intravenous solution] Route: IV; Rate: cf2 bolus; Site: left antecubital; 01:48 Drug: Ondansetron 4 mg [ondansetron HCl 2 mg/mL intravenous solution (2 mL)] Route: cf2 IVP; Site: left antecubital; 03:03 Follow up: Response: No significant change. cf2 02:00 Drug: morphine 4 mg [morphine 4 mg/mL intravenous cartridge (1 mL)] Route: IVP; Site: cf2 left antecubital; 03:03 Follow up: Response: Pain is decreased cf2 04:55 Drug: Ondansetron 4 mg [ondansetron HCl 2 mg/mL intravenous solution (2 mL)] Route: js15 IVP; Site: left antecubital; Signatures: Dispatcher [employer] EDMS Bee Eagle, Reg Reg gb Zac Kaye, FRENCH BINDING FOLDER FRENCH BINDING FOLDER kb5 Meredith Bello,RN RN lf1 Neymar Adame, DO mm11 Liliana MirandaRN RN js15 Yvonne Salas, Reg Reg hs2 Ela Rojas,RN RN cf2 The chart was reviewed and I authenticate all verbal orders and agree with the evaluation and treatment provided.Attachments: 02:42 [facility] Payment Agreement hs2 12:23 T-Sheet-- Draft Copy gb Chart Complete MTDD
== END 2016-07-17 04:58 | disposition home or self-care (01) ==
LOC: M ED 23:51
DX: O99.89 Other specified diseases and conditions complicating pregnancy, childbirth and the puerperium (principal); R10.9 Unspecified abdominal pain; O24.011 Pre-existing type 1 diabetes mellitus, in pregnancy, first trimester; O99.341 Other mental disorders complicating pregnancy, first trimester; F41.9 Anxiety disorder, unspecified; Z79.899 Other long term (current) drug therapy; Z79.3 Long term (current) use of hormonal contraceptives; Z3A.01 Less than 8 weeks gestation of pregnancy
CPT/HCPCS: 36415; 76801; 76817; 80048; 80076; 81001; 82150; 82803; 83690; 83930; 84702; 84703; 85025; 87040; 87086; 93976; 96374; 96375; 96376; 99284; J2405

== ENCOUNTER → 2016-07-24 | Outpatient (REF) | payer MEDICAID ==
[2016-07-24 19:36] LABS: MEAN CORPUSCULAR HEMOGLOBIN 28.9 pg (27.0-33.0); MEAN CORPUSCULAR HGB CONC 32.8 g/dl (32.0-36.5); MEAN CORPUSCULAR VOLUME 88.2 fl (80.0-96.0); WHITE BLOOD COUNT 6.6 K/mm3 (4.0-10.0)
[2016-07-24 20:09] LABS: ALBUMIN 3.5 GM/DL (3.2-5.2); ALBUMIN/GLOBULIN RATIO 1.17 (1.00-1.93); ALKALINE PHOSPHATASE 64 U/L (45-117); ALT/SGPT 23 U/L (12-78); ANION GAP 9 MEQ/L (8-16); AST/SGOT 12 U/L (15-37); BILIRUBIN,TOTAL 1.1 MG/DL (0.2-1.0); BLOOD UREA NITROGEN 9 MG/DL (7-18); CALCIUM LEVEL 8.8 MG/DL (8.5-10.1); CARBON DIOXIDE LEVEL 27 MEQ/L (21-32); CHLORIDE LEVEL 103 MEQ/L (98-107); CREATININE FOR GFR 0.68 MG/DL (0.55-1.02); FREE T4 1.01 NG/DL (0.76-1.46); GLOMERULAR FILTRATION RATE > 60.0 (>60); GLUCOSE, FASTING 164 MG/DL (70-105); HCG, SERUM QUANTITATIVE 11614 MIU/ML; POTASSIUM SERUM 4.2 MEQ/L (3.5-5.1); SODIUM LEVEL 139 MEQ/L (136-145); TOTAL PROTEIN 6.5 GM/DL (6.4-8.2)
[2016-07-25 14:21] LABS: CONTROL LINE INT CTR LINE PRESENT; HIV SCRN NEGATIVE (NEGATIVE); HIV SCRN1 NEGATIVE (NEGATIVE)
== END ==
LOC: M LAB REF 16:38
PROVIDERS: ATTEND Obstetrics & Gynecology
DX: O36.80X0 Pregnancy with inconclusive fetal viability, not applicable or unspecified (principal)

== ENCOUNTER 2016-07-27 14:03 | Emergency (ER) | payer MEDICAID ==
[2016-07-27 15:13] LABS: VENOUS BASE EXCESS -0.1 (-2.0-2.0); VENOUS O2 SATURATION 97.5 % (60.0-80.0); VENOUS PARTIAL PRESSURE CO2 36.1 mmHg (38.0-50.0); VENOUS PARTIAL PRESSURE O2 94.5 mmHg (30.0-50.0); VENOUS STANDARD HCO3 24.4 MEQ/L; VENOUS TOTAL CO2 24.8 MEQ/L (24.0-28.0)
[2016-07-27 15:49] LABS: ALBUMIN 3.4 GM/DL (3.2-5.2); ALBUMIN/GLOBULIN RATIO 1.21 (1.00-1.93); ALKALINE PHOSPHATASE 61 U/L (45-117); ALT/SGPT 26 U/L (12-78); ANION GAP 9 MEQ/L (8-16); AST/SGOT 17 U/L (15-37); BILIRUBIN,DIRECT 0.1 MG/DL (0.0-0.2); BILIRUBIN,TOTAL 0.6 MG/DL (0.2-1.0); BLOOD UREA NITROGEN 9 MG/DL (7-18); CALCIUM LEVEL 8.4 MG/DL (8.5-10.1); CARBON DIOXIDE LEVEL 25 MEQ/L (21-32); CHLORIDE LEVEL 107 MEQ/L (98-107); CREATININE FOR GFR 0.79 MG/DL (0.55-1.02); GLOMERULAR FILTRATION RATE > 60.0 (>60); GLUCOSE, FASTING 95 MG/DL (70-105); HCG, SERUM QUANTITATIVE 17733 MIU/ML; POTASSIUM SERUM 3.9 MEQ/L (3.5-5.1); SODIUM LEVEL 141 MEQ/L (136-145); TOTAL PROTEIN 6.2 GM/DL (6.4-8.2)
[2016-07-27 15:55] LABS: BASO % 0.4 % (0.0-1.0); EOS # 0.2 K/mm3 (0.0-0.50); EOS % 2.8 % (0.0-3.0); LARGE UNSTAINED CELL # 0.1 K/mm3 (0.0-0.4); LARGE UNSTAINED CELL % 1.7 % (0.0-4.0); LYMPH # 1.9 K/mm3 (1.5-6.5); LYMPH % 29.8 % (24.0-44.0); MEAN CORPUSCULAR HEMOGLOBIN 29.4 pg (27.0-33.0); MEAN CORPUSCULAR HGB CONC 34.1 g/dl (32.0-36.5); MONO # 0.4 K/mm3 (0.0-0.8); MONO % 6.8 % (0.0-5.0); NEUTROPHILS # 3.6 K/mm3 (1.8-7.7); NEUTROPHILS % 58.5 % (36.0-66.0); PLATELET COUNT, AUTOMATED 306 k/mm3 (150-450); WHITE BLOOD COUNT 6.2 K/mm3 (4.0-10.0)
--- NOTE | 2016-07-27 17:13 | EDDOCDS ---
Nurse's Notes [facility] Name: Marissa Sanchez Age: 21 yrs Sex: Female : 1995 Arrival Date: 07/27/2016 Time: 14:03 Bed 7 Private MD: Diagnosis: related conditions, unspecified;Anxiety disorder, unspecified Presentation: 07/27 14:08 Presenting complaint: Patient states: headache, generalized swelling, chest pain on and rs3 off for two days. Type I diabetic. Blood sugars in upper 200's. 6 weeks . Was seen by director of psychology . has not had any symptoms. Risk factors: the patient reports no vaginal bleeding. Adult Sepsis Screening: The patient does not have new or worsening altered mentation. Patient's respiratory rate is less than 22. Systolic blood pressure is greater than 100. Patient has a qSOFA score of 0- Negative Sepsis Screen. Suicide/Homicide risk assessment- the patient denies having any suicidal and/or homicidal ideations and does not present with any other emotional, behavioral or mental health complaints. Status: Patient is not a director clinical information services or dependent. Transition of care: patient was not received from another setting of care. 14:08 Acuity: JAYDEN Level 3 rs3 14:08 Method Of Arrival: Walkin/Carried/Asstd rs3 Triage Assessment: 14:12 General: Appears in no apparent distress. Pain: Location: right foot and left foot. Pt rs3 Declines HIV testing. GI: Reports nausea. INSTRUMENT CALIBRATOR: 17:12 1, Full Term 0, Premature 0, 0, Living 0 dls Historical: - Allergies: Augmentin (Vomit); - Home Meds: 1. Levemir 32 Units HS 2. Humolog sliding scale 15 units 3. 28 mg iron- 800 mcg Oral tab daily - PMHx: Anxiety; Diabetes - IDDM: controlled; - PSHx: none; - Social history: Smoking status: Patient states was never smoker of tobacco. No barriers to communication noted, The patient speaks fluent Cape Verdean. - Family history: Not pertinent. - : The pt / caregiver states he / she is not on anticoagulants. Home medication list is obtained from the patient. - Exposure Risk Screening:: None identified. Screenin:06 Infection Control. bnb 17:11 Screening information is obtained from the patient. Fall risk: No risks identified. dls Assistance ADL's: requires no assistance with activities of daily living. Abuse/DV Screen: The patient / caregiver reports he/she is: not in a situation that causes fear, pain or injury. Nutritional screening: No deficits noted. Advance Directives: Currently, there is no health care proxy. There is no active DNR order. There is no living will. There is no Power of Offline Cutter. Advance directive information has not previously been placed in an [facility] medical record. home support is adequate. Assessment: 14:58 General: Appears well developed, well nourished, well groomed, Behavior is anxious. dls Pain: Location: left foot and right foot. Neurological: No deficits noted. EENT: No deficits noted. Cardiovascular: No deficits noted. GI: Abdomen is non- distended Bowel sounds present X 4 quads. Abd is soft X 4 quads. : No deficits noted. Derm: No deficits noted. Musculoskeletal: No deficits noted. 16:03 General: Pt to ultrasound via w/c and returned IV site remains patent and clear family dls at bedside. Pt continues to deny vaginal bleeding or cramping awaiting ultrasound results.. 16:43 General: Pt states she feels like her blood sugar is getting low re-checked blood sugar dls FSBS 66 MD notified and pt given a box lunch with turkey sandwich.. 17:10 General: Pt ate sandwich and peanut butter and crackers feeling much improved leg pain dls has resolved continues to deny abdominal cramping or vaginal bleeding vital signs remain stable.. Vital Signs: 14:06 BP 135 / 73 RA Sitting (auto/reg); Pulse 104; Resp 18; Temp 98.9(O); Pulse Ox 100% on bnb R/A; Weight 78.02 kg; Height 5 ft. 9 in. (175.26 cm); Pain 5/10; 17:09 BP 134 / 70; Pulse 76; Resp 18; Temp 97.4(TE); Pulse Ox 98% on R/A; Pain 1/10; dls 14:06 Body Mass Index 25.40 (78.02 kg, 175.26 cm) [facility] Vitals: 14:06 Log In Time: July 27, 2016 at 14:02. [facility] ED Course: 14:05 Patient visited by Britney Mckeon PCA. bnb 14:05 Patient moved to Waiting bnb 14:07 Patient moved to Pre RCE bnb 14:12 Triage Initiated rs3 14:26 Elisa Hammond, RN is Primary Nurse. jjr 14:26 Patient moved to 7 jjr 14:28 Rula Pina MD is Attending Physician. ml 14:28 Patient visited by Rula Pina MD. ml 14:56 Type & Screen Sent. dls 14:56 Hcg, Serum Quantitative Sent. dls 14:56 Liver Profile Sent. dls 14:56 MED Profile Sent. dls 14:56 CBC with Diff Sent. dls 14:57 Inserted saline lock: 20 gauge in right antecubital area and blood collected. The dls patient tolerated the procedure well. 15:29 Patient visited by Vj Davis PCA. jrd 15:29 EKG done. (by ED staff). Reviewed by Rula Pina MD. jrd 15:42 Urine Culture Sent. dls 15:42 UA Sent. dls 16:01 [facility] Payment Agreement was scanned into [employer] and attached to record. mpb 16:18 Wet Prep Sent. dls 16:18 GC & Chlamydia Amplification Sent. dls 16:22 Assist provider with pelvic exam: Set up pelvic tray. Specimens sent to lab. Performed dls by Rula Pina MD Patient tolerated well. 16:53 Arjun Manzo MD is Referral Physician. ml 17:11 The patient / caregiver is instructed regarding the plan of care and ED course. dls Administered Medications: 14:56 Drug: NS 0.9% 1000 ml [sodium chloride 0.9 % intravenous solution] Route: IV; Rate: dls bolus; Site: left antecubital; Order Results: Lab Order: Fingerstick Blood Sugar; SPEC'M 07/27/16 14:17 Test: BEDSIDE GLUCOSE; Value: 131; Range: 70-105; Abnormal: Above high normal; Units: MG/DL; Status: F Lab Order: CBC with Diff; SPEC'M 07/27/16 14:53 Test: WHITE BLOOD COUNT; Value: 6.2; Range: 4.0-10.0; Units: K/mm3; Status: F Test: RED BLOOD COUNT; Value: 4.16; Range: 4.00-5.40; Units: M/mm3; Status: F Test: HEMOGLOBIN; Value: 12.2; Range: 12.0-16.0; Units: g/dl; Status: F Test: HEMATOCRIT; Value: 35.8; Range: 36.0-47.0; Abnormal: Below low normal; Units: %; Status: F Test: MEAN CORPUSCULAR VOLUME; Value: 86.0; Range: 80.0-96.0; Units: fl; Status: F Test: MEAN CORPUSCULAR HEMOGLOBIN; Value: 29.4; Range: 27.0-33.0; Units: pg; Status: F Test: MEAN CORPUSCULAR HGB CONC; Value: 34.1; Range: 32.0-36.5; Units: g/dl; Status: F Test: RED CELL DISTRIBUTION WIDTH; Value: 12.0; Range: 11.5-14.5; Units: %; Status: F Test: PLATELET COUNT, AUTOMATED; Value: 306; Range: 150-450; Units: k/mm3; Status: F Test: NEUTROPHILS %; Value: 58.5; Range: 36.0-66.0; Units: %; Status: F Test: LYMPH %; Value: 29.8; Range: 24.0-44.0; Units: %; Status: F Test: MONO %; Value: 6.8; Range: 0.0-5.0; Abnormal: Above high normal; Units: %; Status: F Test: EOS %; Value: 2.8; Range: 0.0-3.0; Units: %; Status: F Test: BASO %; Value: 0.4; Range: 0.0-1.0; Units: %; Status: F Test: LARGE UNSTAINED CELL %; Value: 1.7; Range: 0.0-4.0; Units: %; Status: F Test: NEUTROPHILS #; Value: 3.6; Range: 1.8-7.7; Units: K/mm3; Status: F Test: LYMPH #; Value: 1.9; Range: 1.5-6.5; Units: K/mm3; Status: F Test: MONO #; Value: 0.4; Range: 0.0-0.8; Units: K/mm3; Status: F Test: EOS #; Value: 0.2; Range: 0.0-0.50; Units: K/mm3; Status: F Test: BASO #; Value: 0.0; Range: 0.0-0.2; Units: K/mm3; Status: F Test: LARGE UNSTAINED CELL #; Value: 0.1; Range: 0.0-0.4; Units: K/mm3; Status: F Lab Order: MED Profile; SPEC07/27/16 14:53 Test: GLUCOSE, FASTING; Value: 95; Range: 70-105; Units: MG/DL; Status: F Test: BLOOD UREA NITROGEN; Value: 9; Range: 7-18; Units: MG/DL; Status: F Test: CREATININE FOR GFR; Value: 0.79; Range: 0.55-1.02; Units: MG/DL; Status: F Test: GLOMERULAR FILTRATION RATE; Value: > 60.0; Range: >60; Status: F Test: SODIUM LEVEL; Value: 141; Range: 136-145; Units: MEQ/L; Status: F Test: POTASSIUM SERUM; Value: 3.9; Range: 3.5-5.1; Units: MEQ/L; Status: F Test: CHLORIDE LEVEL; Value: 107; Range: 98-107; Units: MEQ/L; Status: F Test: CARBON DIOXIDE LEVEL; Value: 25; Range: 21-32; Units: MEQ/L; Status: F Test: ANION GAP; Value: 9; Range: 8-16; Units: MEQ/L; Status: F Test: CALCIUM LEVEL; Value: 8.4; Range: 8.5-10.1; Abnormal: Below low normal; Units: MG/DL; Status: F Test Note: ; Units are mL/min/1.73 m2 Chronic Kidney Disease Staging per NKF: Stage I & II GFR >=60 Normal to Mildly Decreased Stage III GFR 30-59 Moderately Decreased Stage IV GFR 15-29 Severely Decreased Stage V GFR <15 Very Little GFR Left ESRD GFR <15 on PATENT PARALEGAL Lab Order: UA; SPEC07/27/16 14:45 Test: APPEARANCE, URINE; Value: CLEAR; Range: CLEAR; Status: F Test: COLOR, URINE; Value: YELLOW; Range: YELLOW; Status: F Test: PH,URINE; Value: 7.0; Range: 5.0-9.0; Units: UNITS; Status: F Test: SPECIFIC GRAVITY URINE AUTO; Value: 1.014; Range: 1.002-1.035; Status: F Test: PROTEIN, URINE AUTO; Value: NEGATIVE; Range: NEGATIVE; Units: mg/dL; Status: F Test: GLUCOSE, URINE (UA) AUTO; Value: 2+; Range: NEGATIVE; Abnormal: Above high normal; Units: mg/dL; Status: F Test: KETONE, URINE AUTO; Value: NEGATIVE; Range: NEGATIVE; Units: mg/dL; Status: F Test: UROBILINOGEN, URINE AUTO; Value: 0.2; Range: 0.0-2.0; Units: mg/dL; Status: F Test: BILIRUBIN, URINE AUTO; Value: NEGATIVE; Range: NEGATIVE; Status: F Test: NITRITE, URINE AUTO; Value: NEGATIVE; Range: NEGATIVE; Status: F Test: LEUKOCYTE ESTERASE, URINE AUTO; Value: NEGATIVE; Range: NEGATIVE; Status: F Test: BLOOD, URINE BLOOD; Value: NEGATIVE; Range: NEGATIVE; Status: F Test: WBC, URINE AUTO; Value: 1; Range: 0-3; Units: /HPF; Status: F Test: RBC, URINE AUTO; Value: 2; Range: 0-3; Units: /HPF; Status: F Test: BACTERIA, URINE AUTO; Value: 1+; Range: NEGATIVE; Abnormal: Above high normal; Status: F Test: SQUAMOUS EPITHELIAL CELL UR AU; Value: 6; Range: 0-6; Units: /HPF; Status: F Test: HYALINE CAST, URINE AUTO; Value: 0; Range: 0-1; Units: /LPF; Status: F Lab Order: Liver Profile; SPEC'M 07/27/16 14:53 Test: AST/SGOT; Value: 17; Range: 15-37; Units: U/L; Status: F Test: ALT/SGPT; Value: 26; Range: 12-78; Units: U/L; Status: F Test: ALKALINE PHOSPHATASE; Value: 61; Range: 45-117; Units: U/L; Status: F Test: BILIRUBIN,TOTAL; Value: 0.6; Range: 0.2-1.0; Units: MG/DL; Status: F Test: BILIRUBIN,DIRECT; Value: 0.1; Range: 0.0-0.2; Units: MG/DL; Status: F Test: TOTAL PROTEIN; Value: 6.2; Range: 6.4-8.2; Abnormal: Below low normal; Units: GM/DL; Status: F Test: ALBUMIN; Value: 3.4; Range: 3.2-5.2; Units: GM/DL; Status: F Test: ALBUMIN/GLOBULIN RATIO; Value: 1.21; Range: 1.00-1.93; Status: F Lab Order: Hcg, Serum Quantitative; [facility]07/27/16 14:53 Test: HCG, SERUM QUANTITATIVE; Value: [id number]; Units: MIU/ML; Status: F Test Note: ; GESTATIONAL AGE APPROXIMATE HCG RANGE (MIU/ML) 0.2-1 WEEK 5-50 1-2 WEEKS 50-500 2-3 WEEKS 100-5,000 3-4 WEEKS 500-10,000 4-5 WEEKS 1,000-50,000 5-6 WEEKS 10,000-100,000 6-8 WEEKS 15,000-200,000 2-3 MONTHS 10,000-100,000 NON FEMALES LESS THAN 3.0 Patient samples may contain human heterophilic antibodies that could react with immunoassays to give falsely elevated or depressed results. This assay has been designed to minimize interference from heterophilic antibodies. Elevated hCG levels have also been associated with trophoblastic disease and nontrophoblastic neoplasms. The possibility of having these diseases should be considered before a diagnosis of is made. This test is not intended for use as a surrogate marker for aiding in the diagnosis or monitoring the treatment of cancer patients. Siemens Knapp methodology. Lab Order: Type & Screen; [facility]07/27/16 14:53 Test: BLOOD TYPE; Value: A POS; Status: F Test: AB SCREEN (INDIRECT PRAKASH)VIS; Value: NEGATIVE; Status: F Lab Order: Venous Blood Gas (large pea green tube on ice); [facility] 07/27/16 14:53 Test: VENOUS PH; Value: 7.435; Range: 7.330-7.430; Abnormal: Above high normal; Units: UNITS; Status: F Test: VENOUS PARTIAL PRESSURE CO2; Value: 36.1; Range: 38.0-50.0; Abnormal: Below low normal; Units: mmHg; Status: F Test: VENOUS PARTIAL PRESSURE O2; Value: 94.5; Range: 30.0-50.0; Abnormal: Above high normal; Units: mmHg; Status: F Test: VENOUS TOTAL CO2; Value: 24.8; Range: 24.0-28.0; Units: MEQ/L; Status: F Test: VENOUS HCO3; Value: 23.7; Range: 23.0-27.0; Units: MEQ/L; Status: F Test: VENOUS BASE EXCESS; Value: -0.1; Range: -2.0-2.0; Status: F Test: VENOUS STANDARD HCO3; Value: 24.4; Units: MEQ/L; Status: F Test: VENOUS O2 SATURATION; Value: 97.5; Range: 60.0-80.0; Abnormal: Above high normal; Units: %; Status: F Lab Order: Wet Prep; [facility] 07/27/16 16:14 Test: WET PREP; Value: WET PREP RESULT; Status: F Test: WET PREP; Value: MODERATE EPITHELIAL CELLS PRESENT; Status: F Test: WET PREP; Value: MODERATE WBC; Status: F Test: WET PREP; Value: MANY LONG RODS PRESENT; Status: F Test: WET PREP; Value: MODERATE SHORT RODS PRESENT; Status: F Lab Order: Fingerstick Blood Sugar; [facility]' 07/27/16 16:41 Test: BEDSIDE GLUCOSE; Value: 66; Range: 70-105; Abnormal: Below low normal; Units: MG/DL; Status: F Outcome: 16:54 Discharge ordered by Provider. 17:10 Discharge Assessment: Patient awake, alert and oriented x 3. No cognitive and/or dls functional deficits noted. Patient verbalized understanding of disposition instructions. patient administered narcotics - no. The following High Risk Discharge criteria are identified: None. Discharged to home ambulatory. Condition: stable Condition: improved. Discharge instructions given to patient, Instructed on discharge instructions, follow up and referral plans. Demonstrated understanding of instructions, Pt was receptive of discharge instructions/ teaching. Ultrasound Study completed. Property :Personal belongings accompany Pt. 17:13 Patient left the ED. dls Signatures: Rula Pina MD MD ml Scott, Debra, RN RN dls Raymond, Jessica, RN RN jjr Soosairaj, RosemaryRN RN rs3 Vj Davis, ROLL OVER LOADER ROLL OVER LOADER jrd Addy Lozano, Reg Reg mpb Britney Mckeon, ROLL OVER LOADER ROLL OVER LOADER bnb MTDD
--- NOTE | 2016-07-27 17:13 | EDDOCDS ---
Physician Documentation [facility] Name: Marissa Sanchez Age: 21 yrs Sex: Female : 1995 Arrival Date: 07/27/2016 Time: 14:03 Bed 7 Private MD: Disposition: 07/27/16 16:54 Discharged to Home/Self Care. Impression: related conditions, unspecified, Anxiety disorder, unspecified. - Condition is Stable. - Discharge Instructions: First Trimester of , Generalized Anxiety Disorder. - Medication Reconciliation, Local Pharmacy Hours form. - Follow up: Arjun Manzo MD; When: 1 - 2 days. - Problem is new. - Symptoms have improved. - Notes: follow up with Dr Manzo. return if worsening symptoms Historical: - Allergies: Augmentin (Vomit); - Home Meds: 1. Levemir 32 Units HS 2. Humolog sliding scale 15 units 3. 28 mg iron- 800 mcg Oral tab daily - PMHx: Anxiety; Diabetes - IDDM: controlled; - PSHx: none; - Social history: Smoking status: Patient states was never smoker of tobacco. No barriers to communication noted, The patient speaks fluent [place]. - Family history: Not pertinent. - : The pt / caregiver states he / she is not on anticoagulants. Home medication list is obtained from the patient. - Exposure Risk Screening:: None identified. THREAD REELER: 07/27 17:12 1, Full Term 0, Premature 0, 0, Living 0 dls Vital Signs: 14:06 BP 135 / 73 RA Sitting (auto/reg); Pulse 104; Resp 18; Temp 98.9(O); Pulse Ox 100% on bnb R/A; Weight 78.02 kg / 172 lbs; Height 5 ft. 9 in. (175.26 cm); Pain 5/10; 17:09 BP 134 / 70; Pulse 76; Resp 18; Temp 97.4(TE); Pulse Ox 98% on R/A; Pain 1/10; dls 14:06 Body Mass Index 25.40 (78.02 kg, 175.26 cm) bnb MDM: 14:27 Fingerstick Blood Sugar Ordered. EDMS 14:39 IV Saline Lock ordered. ml 14:39 NS 0.9% 1000 ml IV at bolus once ordered. ml 14:39 Type & Screen Ordered. EDMS 14:39 CBC with Diff Ordered. EDMS 14:39 MED Profile Ordered. EDMS 14:39 UA Ordered. EDMS 14:39 Liver Profile Ordered. EDMS 14:39 Hcg, Serum Quantitative Ordered. EDMS 14:39 Urine Culture Ordered. EDMS 14:40 US Lower Extremity R/O DVT Ordered. EDMS 14:40 US 1st trimester Ordered. EDMS 14:41 Venous Blood Gas (large pea green tube on ice) Ordered. EDMS 14:41 ECG WITH READING ER PHYS+CARDIAG ordered. EDMS 14:53 GC & Chlamydia Amplification Ordered. EDMS 14:53 Wet Prep Ordered. EDMS 15:52 Fingerstick Blood Sugar Reviewed. ml 15:52 Venous Blood Gas (large pea green tube on ice) Reviewed. ml 15:59 Financial registration complete. mpb 16:01 [facility] Payment Agreement was scanned into [employer] and attached to record. mpb 16:05 CBC with Diff Reviewed. ml 16:05 MED Profile Reviewed. ml 16:05 UA Reviewed. ml 16:05 Liver Profile Reviewed. ml 16:05 Hcg, Serum Quantitative Reviewed. ml 16:05 Type & Screen Reviewed. ml 16:49 Fingerstick Blood Sugar Ordered. EDMS 16:51 Fingerstick Blood Sugar Reviewed. ml 16:51 Wet Prep Reviewed. ml Administered Medications: 14:56 Drug: NS 0.9% 1000 ml [sodium chloride 0.9 % intravenous solution] Route: IV; Rate: dls bolus; Site: left antecubital; Signatures: Dispatcher [employer] EDND Rula Pina MD MD ml Scott, Debra RN RN Noris Adamson RN RN rs3 Addy Lozano, Nile Reg mpb The chart was reviewed and I authenticate all verbal orders and agree with the evaluation and treatment provided.Attachments: 16:01 [facility] Payment Agreement mpb MTDD
--- NOTE | 2016-07-27 19:39 | ECGEPIP ---
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
--- NOTE | 2016-07-28 07:03 | REP ---
FIRST TRIMESTER OB ULTRASOUND: 07/27/2016. Comparison: 07/17/2016. Clinical history. First trimester , abdominal pain. Transabdominal imaging was utilized. Bladder is underfilled, but study adequately demonstrates the uterus which is anteverted. In the fundus of the uterus is a gestational sac. Within the sac is a pole with crown-rump length of 3 mm corresponding to 5 weeks 6 days. heart activity noted at 113 bpm. No subchorionic bleed. No pelvic free fluid. Adnexa not identified. Impression: 1. Anteverted uterus with a gestational sac in the fundus and a pole with crown-rump length consistent with 5 weeks 6 days. This gives an EDC 03/23/2017. heart rate 113. 2. No subchorionic bleed. No pelvic free fluid. Adnexa not visible on this study. Signed by Hardik Phelps MD 07/28/2016 09:16 A
--- NOTE | 2016-07-28 07:04 | REP ---
BILATERAL LOWER EXTREMITY DOPPLER VENOUS ULTRASOUND: Comparison: None. Clinical history: Dyspnea, lower extremity pain. Technique: The deep venous system of the bilateral lower extremities is evaluated with bae scale imaging, compression ultrasound, color imaging and duplex Doppler interrogation. Examination from the groin through the popliteal fossa into the proximal calf. Findings: There is full compressibility from the common femoral vein in the inguinal region through the popliteal vein on both sides. Color imaging confirms patency throughout the course of the deep venous system. There is respiratory variation and augmented flow at all levels. Impression: 1. No Doppler venous ultrasound evidence of DVT in the bilateral lower extremities. Signed by Hardik Phelps MD 07/28/2016 09:16 A
--- NOTE | 2016-07-29 18:14 | EDDOCDS ---
Physician Documentation [facility] Name: Marissa Sanchez Age: 21 yrs Sex: Female : 1995 Arrival Date: 07/27/2016 Time: 14:03 Bed 7 Private MD: Disposition: 07/27/16 16:54 Discharged to Home/Self Care. Impression: related conditions, unspecified, Anxiety disorder, unspecified. - Condition is Stable. - Discharge Instructions: First Trimester of , Generalized Anxiety Disorder. - Medication Reconciliation, Local Pharmacy Hours form. - Follow up: Arjun Manzo MD; When: 1 - 2 days. - Problem is new. - Symptoms have improved. - Notes: follow up with Dr Manzo. return if worsening symptoms Historical: - Allergies: Augmentin (Vomit); - Home Meds: 1. Levemir 32 Units HS 2. Humolog sliding scale 15 units 3. 28 mg iron- 800 mcg Oral tab daily - PMHx: Anxiety; Diabetes - IDDM: controlled; - PSHx: none; - Social history: Smoking status: Patient states was never smoker of tobacco. No barriers to communication noted, The patient speaks fluent Guyanese. - Family history: Not pertinent. - : The pt / caregiver states he / she is not on anticoagulants. Home medication list is obtained from the patient. - Exposure Risk Screening:: None identified. SHIP FASTENER: 07/27 17:12 1, Full Term 0, Premature 0, 0, Living 0 dls Vital Signs: 14:06 BP 135 / 73 RA Sitting (auto/reg); Pulse 104; Resp 18; Temp 98.9(O); Pulse Ox 100% on bnb R/A; Weight 78.02 kg / 172 lbs; Height 5 ft. 9 in. (175.26 cm); Pain 5/10; 17:09 BP 134 / 70; Pulse 76; Resp 18; Temp 97.4(TE); Pulse Ox 98% on R/A; Pain 1/10; dls 14:06 Body Mass Index 25.40 (78.02 kg, 175.26 cm) bnb MDM: 14:27 Fingerstick Blood Sugar Ordered. EDMS 14:39 IV Saline Lock ordered. ml 14:39 NS 0.9% 1000 ml IV at bolus once ordered. ml 14:39 Type & Screen Ordered. EDMS 14:39 CBC with Diff Ordered. EDMS 14:39 MED Profile Ordered. EDMS 14:39 UA Ordered. EDMS 14:39 Liver Profile Ordered. EDMS 14:39 Hcg, Serum Quantitative Ordered. EDMS 14:39 Urine Culture Ordered. EDMS 14:40 US Lower Extremity R/O DVT Ordered. EDMS 14:40 US 1st trimester Ordered. EDMS 14:41 Venous Blood Gas (large pea green tube on ice) Ordered. EDMS 14:41 ECG WITH READING ER PHYS+CARDIAG ordered. EDMS 14:53 GC & Chlamydia Amplification Ordered. EDMS 14:53 Wet Prep Ordered. EDMS 15:52 Fingerstick Blood Sugar Reviewed. ml 15:52 Venous Blood Gas (large pea green tube on ice) Reviewed. ml 15:59 Financial registration complete. mpb 16:01 [facility] Payment Agreement was scanned into Walk[employer] and attached to record. mpb 16:05 CBC with Diff Reviewed. ml 16:05 MED Profile Reviewed. ml 16:05 UA Reviewed. ml 16:05 Liver Profile Reviewed. ml 16:05 Hcg, Serum Quantitative Reviewed. ml 16:05 Type & Screen Reviewed. ml 16:49 Fingerstick Blood Sugar Ordered. EDMS 16:51 Fingerstick Blood Sugar Reviewed. ml 16:51 Wet Prep Reviewed. 07/28 13:27 T-Sheet-- Draft Copy was scanned into WalkMe and attached to record. gb 13:27 ECG/EKG was scanned into [employer] and attached to record. gb Administered Medications: 07/27 14:56 Drug: NS 0.9% 1000 ml [sodium chloride 0.9 % intravenous solution] Route: IV; Rate: dls bolus; Site: left antecubital; Signatures: Dispatcher MedHost EDHI Rula Pina MD MD ml Scott, Debra RN RN dls Bee Eagle, Reg Reg gb Noris Wyatt RN RN rs3 Addy Lozano, Reg Reg mpb The chart was reviewed and I authenticate all verbal orders and agree with the evaluation and treatment provided.Attachments: 16:01 [facility] Payment Agreement [facility] 07/28 13:27 T-Sheet-- Draft Copy gb 13:27 ECG/EKG gb Chart Complete MTDD
--- NOTE | 2016-07-29 18:14 | EDDOCDS ---
Nurse's Notes [facility] Name: Marissa Sanchez Age: 21 yrs Sex: Female : 1995 Arrival Date: 07/27/2016 Time: 14:03 Bed 7 Private MD: Diagnosis: related conditions, unspecified;Anxiety disorder, unspecified Presentation: 07/27 14:08 Presenting complaint: Patient states: headache, generalized swelling, chest pain on and rs3 off for two days. Type I diabetic. Blood sugars in upper 200's. 6 weeks . Was seen by electronic components assembler . has not had any symptoms. Risk factors: the patient reports no vaginal bleeding. Adult Sepsis Screening: The patient does not have new or worsening altered mentation. Patient's respiratory rate is less than 22. Systolic blood pressure is greater than 100. Patient has a qSOFA score of 0- Negative Sepsis Screen. Suicide/Homicide risk assessment- the patient denies having any suicidal and/or homicidal ideations and does not present with any other emotional, behavioral or mental health complaints. Status: Patient is not a medicine and health service manager or dependent. Transition of care: patient was not received from another setting of care. 14:08 Acuity: JAYDEN Level 3 rs3 14:08 Method Of Arrival: Walkin/Carried/Asstd rs3 Triage Assessment: 14:12 General: Appears in no apparent distress. Pain: Location: right foot and left foot. Pt rs3 Declines HIV testing. GI: Reports nausea. 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 Levemir 32 Units HS 2. Humolog sliding scale 15 units 3. 28 mg iron- 800 mcg Oral tab daily - PMHx: Anxiety; Diabetes - IDDM: controlled; - PSHx: none; - Social history: Smoking status: Patient states was never smoker of tobacco. No barriers to communication noted, The patient speaks fluent Algerian. - Family history: Not pertinent. - : The pt / caregiver states he / she is not on anticoagulants. Home medication list is obtained from the patient. - Exposure Risk Screening:: None identified. Screenin:06 Infection Control. bnb 17:11 Screening information is obtained from the patient. Fall risk: No risks identified. dls Assistance ADL's: requires no assistance with activities of daily living. Abuse/DV Screen: The patient / caregiver reports he/she is: not in a situation that causes fear, pain or injury. Nutritional screening: No deficits noted. Advance Directives: Currently, there is no health care proxy. There is no active DNR order. There is no living will. There is no Power of Side Show Entertainer. Advance directive information has not previously been placed in an [facility] medical record. home support is adequate. Assessment: 14:58 General: Appears well developed, well nourished, well groomed, Behavior is anxious. dls Pain: Location: left foot and right foot. Neurological: No deficits noted. EENT: No deficits noted. Cardiovascular: No deficits noted. GI: Abdomen is non- distended Bowel sounds present X 4 quads. Abd is soft X 4 quads. : No deficits noted. Derm: No deficits noted. Musculoskeletal: No deficits noted. 16:03 General: Pt to ultrasound via w/c and returned IV site remains patent and clear family dls at bedside. Pt continues to deny vaginal bleeding or cramping awaiting ultrasound results.. 16:43 General: Pt states she feels like her blood sugar is getting low re-checked blood sugar dls FSBS 66 MD notified and pt given a box lunch with turkey sandwich.. 17:10 General: Pt ate sandwich and peanut butter and crackers feeling much improved leg pain dls has resolved continues to deny abdominal cramping or vaginal bleeding vital signs remain stable.. Vital Signs: 14:06 BP 135 / 73 RA Sitting (auto/reg); Pulse 104; Resp 18; Temp 98.9(O); Pulse Ox 100% on bnb R/A; Weight 78.02 kg; Height 5 ft. 9 in. (175.26 cm); Pain 5/10; 17:09 BP 134 / 70; Pulse 76; Resp 18; Temp 97.4(TE); Pulse Ox 98% on R/A; Pain 1/10; dls 14:06 Body Mass Index 25.40 (78.02 kg, 175.26 cm) banner Vitals: 14:06 Log In Time: July 27, 2016 at 14:02. banner ED Course: 14:05 Patient visited by Britney Mckeon PCA. bnb 14:05 Patient moved to Waiting bnb 14:07 Patient moved to Pre RCE bnb 14:12 Triage Initiated rs3 14:26 Elisa Hammond, RN is Primary Nurse. jjr 14:26 Patient moved to 7 jjr 14:28 Rula Pina MD is Attending Physician. ml 14:28 Patient visited by Rula Pina MD. ml 14:56 Type & Screen Sent. dls 14:56 Hcg, Serum Quantitative Sent. dls 14:56 Liver Profile Sent. dls 14:56 MED Profile Sent. dls 14:56 CBC with Diff Sent. dls 14:57 Inserted saline lock: 20 gauge in right antecubital area and blood collected. The dls patient tolerated the procedure well. 15:29 Patient visited by Vj Davis PCA. jrd 15:29 EKG done. (by ED staff). Reviewed by Rula Pina MD. jrd 15:42 Urine Culture Sent. dls 15:42 UA Sent. dls 16:01 [facility] Payment Agreement was scanned into [employer] and attached to record. mpb 16:18 Wet Prep Sent. dls 16:18 GC & Chlamydia Amplification Sent. dls 16:22 Assist provider with pelvic exam: Set up pelvic tray. Specimens sent to lab. Performed dls by Rula Pina MD Patient tolerated well. 16:53 Arjun Manzo MD is Referral Physician. ml 17:11 The patient / caregiver is instructed regarding the plan of care and ED course. dls 20:15 EKG-ADULT Returned. EDMS 07/28 07:21 US 1st trimester Returned. EDMS 07:21 US Lower Extremity R/O DVT Returned. EDMS 13:27 T-Sheet-- Draft Copy was scanned into [employer] and attached to record. gb 13:27 ECG/EKG was scanned into [employer] and attached to record. gb Administered Medications: 07/27 14:56 Drug: NS 0.9% 1000 ml [sodium chloride 0.9 % intravenous solution] Route: IV; Rate: dls bolus; Site: left antecubital; Order Results: Lab Order: Fingerstick Blood Sugar; SPEC'M 07/27/16 14:17 Test: BEDSIDE GLUCOSE; Value: 131; Range: 70-105; Abnormal: Above high normal; Units: MG/DL; Status: F Lab Order: CBC with Diff; SPEC'M 07/27/16 14:53 Test: WHITE BLOOD COUNT; Value: 6.2; Range: 4.0-10.0; Units: K/mm3; Status: F Test: RED BLOOD COUNT; Value: 4.16; Range: 4.00-5.40; Units: M/mm3; Status: F Test: HEMOGLOBIN; Value: 12.2; Range: 12.0-16.0; Units: g/dl; Status: F Test: HEMATOCRIT; Value: 35.8; Range: 36.0-47.0; Abnormal: Below low normal; Units: %; Status: F Test: MEAN CORPUSCULAR VOLUME; Value: 86.0; Range: 80.0-96.0; Units: fl; Status: F Test: MEAN CORPUSCULAR HEMOGLOBIN; Value: 29.4; Range: 27.0-33.0; Units: pg; Status: F Test: MEAN CORPUSCULAR HGB CONC; Value: 34.1; Range: 32.0-36.5; Units: g/dl; Status: F Test: RED CELL DISTRIBUTION WIDTH; Value: 12.0; Range: 11.5-14.5; Units: %; Status: F Test: PLATELET COUNT, AUTOMATED; Value: 306; Range: 150-450; Units: k/mm3; Status: F Test: NEUTROPHILS %; Value: 58.5; Range: 36.0-66.0; Units: %; Status: F Test: LYMPH %; Value: 29.8; Range: 24.0-44.0; Units: %; Status: F Test: MONO %; Value: 6.8; Range: 0.0-5.0; Abnormal: Above high normal; Units: %; Status: F Test: EOS %; Value: 2.8; Range: 0.0-3.0; Units: %; Status: F Test: BASO %; Value: 0.4; Range: 0.0-1.0; Units: %; Status: F Test: LARGE UNSTAINED CELL %; Value: 1.7; Range: 0.0-4.0; Units: %; Status: F Test: NEUTROPHILS #; Value: 3.6; Range: 1.8-7.7; Units: K/mm3; Status: F Test: LYMPH #; Value: 1.9; Range: 1.5-6.5; Units: K/mm3; Status: F Test: MONO #; Value: 0.4; Range: 0.0-0.8; Units: K/mm3; Status: F Test: EOS #; Value: 0.2; Range: 0.0-0.50; Units: K/mm3; Status: F Test: BASO #; Value: 0.0; Range: 0.0-0.2; Units: K/mm3; Status: F Test: LARGE UNSTAINED CELL #; Value: 0.1; Range: 0.0-0.4; Units: K/mm3; Status: F Lab Order: MED Profile; SPEC'M 07/27/16 14:53 Test: GLUCOSE, FASTING; Value: 95; Range: 70-105; Units: MG/DL; Status: F Test: BLOOD UREA NITROGEN; Value: 9; Range: 7-18; Units: MG/DL; Status: F Test: CREATININE FOR GFR; Value: 0.79; Range: 0.55-1.02; Units: MG/DL; Status: F Test: GLOMERULAR FILTRATION RATE; Value: > 60.0; Range: >60; Status: F Test: SODIUM LEVEL; Value: 141; Range: 136-145; Units: MEQ/L; Status: F Test: POTASSIUM SERUM; Value: 3.9; Range: 3.5-5.1; Units: MEQ/L; Status: F Test: CHLORIDE LEVEL; Value: 107; Range: 98-107; Units: MEQ/L; Status: F Test: CARBON DIOXIDE LEVEL; Value: 25; Range: 21-32; Units: MEQ/L; Status: F Test: ANION GAP; Value: 9; Range: 8-16; Units: MEQ/L; Status: F Test: CALCIUM LEVEL; Value: 8.4; Range: 8.5-10.1; Abnormal: Below low normal; Units: MG/DL; Status: F Test Note: ; Units are mL/min/1.73 m2 Chronic Kidney Disease Staging per NKF: Stage I & II GFR >=60 Normal to Mildly Decreased Stage III GFR 30-59 Moderately Decreased Stage IV GFR 15-29 Severely Decreased Stage V GFR <15 Very Little GFR Left ESRD GFR <15 on DELIVERY ARCHITECT Lab Order: UA; SPEC'M 07/27/16 14:45 Test: APPEARANCE, URINE; Value: CLEAR; Range: CLEAR; Status: F Test: COLOR, URINE; Value: YELLOW; Range: YELLOW; Status: F Test: PH,URINE; Value: 7.0; Range: 5.0-9.0; Units: UNITS; Status: F Test: SPECIFIC GRAVITY URINE AUTO; Value: 1.014; Range: 1.002-1.035; Status: F Test: PROTEIN, URINE AUTO; Value: NEGATIVE; Range: NEGATIVE; Units: mg/dL; Status: F Test: GLUCOSE, URINE (UA) AUTO; Value: 2+; Range: NEGATIVE; Abnormal: Above high normal; Units: mg/dL; Status: F Test: KETONE, URINE AUTO; Value: NEGATIVE; Range: NEGATIVE; Units: mg/dL; Status: F Test: UROBILINOGEN, URINE AUTO; Value: 0.2; Range: 0.0-2.0; Units: mg/dL; Status: F Test: BILIRUBIN, URINE AUTO; Value: NEGATIVE; Range: NEGATIVE; Status: F Test: NITRITE, URINE AUTO; Value: NEGATIVE; Range: NEGATIVE; Status: F Test: LEUKOCYTE ESTERASE, URINE AUTO; Value: NEGATIVE; Range: NEGATIVE; Status: F Test: BLOOD, URINE BLOOD; Value: NEGATIVE; Range: NEGATIVE; Status: F Test: WBC, URINE AUTO; Value: 1; Range: 0-3; Units: /HPF; Status: F Test: RBC, URINE AUTO; Value: 2; Range: 0-3; Units: /HPF; Status: F Test: BACTERIA, URINE AUTO; Value: 1+; Range: NEGATIVE; Abnormal: Above high normal; Status: F Test: SQUAMOUS EPITHELIAL CELL UR AU; Value: 6; Range: 0-6; Units: /HPF; Status: F Test: HYALINE CAST, URINE AUTO; Value: 0; Range: 0-1; Units: /LPF; Status: F Lab Order: Urine Culture; SPEC'M 07/27/16 14:45 Test: URINE CULTURE; Value: <EXTERNAL COMMENT eCWMed> FULL REPORT IN LAB NOTES (eCW and Medent).; Status: F Test: URINE CULTURE; Value: URINE CULTURE RESULT NO GROWTH CLINICAL SIGNIFICANCE 1 ORGANISM; Status: F Lab Order: Liver Profile; SPEC'M 07/27/16 14:53 Test: AST/SGOT; Value: 17; Range: 15-37; Units: U/L; Status: F Test: ALT/SGPT; Value: 26; Range: 12-78; Units: U/L; Status: F Test: ALKALINE PHOSPHATASE; Value: 61; Range: 45-117; Units: U/L; Status: F Test: BILIRUBIN,TOTAL; Value: 0.6; Range: 0.2-1.0; Units: MG/DL; Status: F Test: BILIRUBIN,DIRECT; Value: 0.1; Range: 0.0-0.2; Units: MG/DL; Status: F Test: TOTAL PROTEIN; Value: 6.2; Range: 6.4-8.2; Abnormal: Below low normal; Units: GM/DL; Status: F Test: ALBUMIN; Value: 3.4; Range: 3.2-5.2; Units: GM/DL; Status: F Test: ALBUMIN/GLOBULIN RATIO; Value: 1.21; Range: 1.00-1.93; Status: F Lab Order: Hcg, Serum Quantitative; SPEC'M 07/27/16 14:53 Test: HCG, SERUM QUANTITATIVE; Value: 51770; Units: MIU/ML; Status: F Test Note: ; GESTATIONAL AGE APPROXIMATE HCG RANGE (MIU/ML) 0.2-1 WEEK 5-50 1-2 WEEKS 50-500 2-3 WEEKS 100-5,000 3-4 WEEKS 500-10,000 4-5 WEEKS 1,000-50,000 5-6 WEEKS 10,000-100,000 6-8 WEEKS 15,000-200,000 2-3 MONTHS 10,000-100,000 NON FEMALES LESS THAN 3.0 Patient samples may contain human heterophilic antibodies that could react with immunoassays to give falsely elevated or depressed results. This assay has been designed to minimize interference from heterophilic antibodies. Elevated hCG levels have also been associated with trophoblastic disease and nontrophoblastic neoplasms. The possibility of having these diseases should be considered before a diagnosis of is made. This test is not intended for use as a surrogate marker for aiding in the diagnosis or monitoring the treatment of cancer patients. Siemens [place] methodology. Lab Order: Type & Screen; 07/27/16 14:53 Test: BLOOD TYPE; Value: A POS; Status: F Test: AB SCREEN (INDIRECT PRAKASH)VIS; Value: NEGATIVE; Status: F Lab Order: Venous Blood Gas (large pea green tube on ice); SPEC07/27/16 14:53 Test: VENOUS PH; Value: 7.435; Range: 7.330-7.430; Abnormal: Above high normal; Units: UNITS; Status: F Test: VENOUS PARTIAL PRESSURE CO2; Value: 36.1; Range: 38.0-50.0; Abnormal: Below low normal; Units: mmHg; Status: F Test: VENOUS PARTIAL PRESSURE O2; Value: 94.5; Range: 30.0-50.0; Abnormal: Above high normal; Units: mmHg; Status: F Test: VENOUS TOTAL CO2; Value: 24.8; Range: 24.0-28.0; Units: MEQ/L; Status: F Test: VENOUS HCO3; Value: 23.7; Range: 23.0-27.0; Units: MEQ/L; Status: F Test: VENOUS BASE EXCESS; Value: -0.1; Range: -2.0-2.0; Status: F Test: VENOUS STANDARD HCO3; Value: 24.4; Units: MEQ/L; Status: F Test: VENOUS O2 SATURATION; Value: 97.5; Range: 60.0-80.0; Abnormal: Above high normal; Units: %; Status: F Lab Order: GC & Chlamydia Amplification; SPEC07/27/16 16:14 Test: CHLAMYDIA DNA AMPLIFICATION; Value: NEGATIVE; Range: NEGATIVE; Status: F Test: GC DNA AMPLIFICATION; Value: NEGATIVE; Range: NEGATIVE; Status: F Lab Order: Wet Prep; SPEC07/27/16 16:14 Test: WET PREP; Value: WET PREP RESULT; Status: F Test: WET PREP; Value: MODERATE EPITHELIAL CELLS PRESENT; Status: F Test: WET PREP; Value: MODERATE WBC; Status: F Test: WET PREP; Value: MANY LONG RODS PRESENT; Status: F Test: WET PREP; Value: MODERATE SHORT RODS PRESENT; Status: F Lab Order: Fingerstick Blood Sugar; SPEC'M 07/27/16 16:41 Test: BEDSIDE GLUCOSE; Value: 66; Range: 70-105; Abnormal: Below low normal; Units: MG/DL; Status: F Radiology Order: US Lower Extremity R/O DVT Test: US Lower Extremity R/O DVT REASON FOR EXAMINATION: calf pain ; BILATERAL LOWER EXTREMITY DOPPLER VENOUS ULTRASOUND:; ; Comparison: None.; ; Clinical history: Dyspnea, lower extremity pain.; ; Technique: The deep venous system of the bilateral lower extremities is; evaluated with bae scale imaging, compression ultrasound, color imaging and; duplex Doppler interrogation. Examination from the groin through the popliteal; fossa into the proximal calf.; ; Findings: There is full compressibility from the common femoral vein in the; inguinal region through the popliteal vein on both sides. Color imaging confirms; patency throughout the course of the deep venous system. There is respiratory; variation and augmented flow at all levels.; ; Impression:; ; 1. No Doppler venous ultrasound evidence of DVT in the bilateral lower; extremities.; ; ; ; ; Signed by; Hardik Phelps MD 07/28/2016 09:16 A; Radiology Order: US 1st trimester Test: US 1st trimester REASON FOR EXAMINATION: abdominal p; FIRST TRIMESTER OB ULTRASOUND: 07/27/2016.; ; Comparison: 07/17/2016.; ; Clinical history. First trimester , abdominal pain.; ; Transabdominal imaging was utilized. Bladder is underfilled, but study; adequately demonstrates the uterus which is anteverted. In the fundus of the; uterus is a gestational sac. Within the sac is a pole with crown-rump; length of 3 mm corresponding to 5 weeks 6 days. heart activity noted at; 113 bpm. No subchorionic bleed. No pelvic free fluid. Adnexa not identified.; ; Impression:; ; 1. Anteverted uterus with a gestational sac in the fundus and a pole with; crown-rump length consistent with 5 weeks 6 days. This gives an EDC 03/23/2017.; heart rate 113. 2. No subchorionic bleed. No pelvic free fluid. 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 17:10 Discharge Assessment: Patient awake, alert and oriented x 3. No cognitive and/or dls functional deficits noted. Patient verbalized understanding of disposition instructions. patient administered narcotics - no. The following High Risk Discharge criteria are identified: None. Discharged to home ambulatory. Condition: stable Condition: improved. Discharge instructions given to patient, Instructed on discharge instructions, follow up and referral plans. Demonstrated understanding of instructions, Pt was receptive of discharge instructions/ teaching. Ultrasound Study completed. Property :Personal belongings accompany Pt. 17:13 Patient left the ED. dls Signatures: Dispatcher Med[employer] EDMI Rula Pina MD MD ml Scott, Debra, RN RN dls Bee Eagle, Reg Reg Marybeth Guillaume RN Noris Mena RN RN rs3 Vj Davis, FIREARMS SPECIALIST FIREARMS SPECIALIST jrd Addy Lozano, Reg Reg mpb Britney Mckeon, FIREARMS SPECIALIST FIREARMS SPECIALIST bnb Chart Complete MTDD
--- NOTE | 2016-07-29 18:15 | EDDOCDS ---
Physician Documentation [facility] Name: Marissa Sanchez Age: 21 yrs Sex: Female : 1995 Arrival Date: 07/27/2016 Time: 14:03 Bed 7 Private MD: Disposition: 07/27/16 16:54 Discharged to Home/Self Care. Impression: related conditions, unspecified, Anxiety disorder, unspecified. - Condition is Stable. - Discharge Instructions: First Trimester of , Generalized Anxiety Disorder. - Medication Reconciliation, Local Pharmacy Hours form. - Follow up: Arjun Manzo MD; When: 1 - 2 days. - Problem is new. - Symptoms have improved. - Notes: follow up with Dr Manzo. return if worsening symptoms Historical: - Allergies: Augmentin (Vomit); - Home Meds: 1. Levemir 32 Units HS 2. Humolog sliding scale 15 units 3. 28 mg iron- 800 mcg Oral tab daily - PMHx: Anxiety; Diabetes - IDDM: controlled; - PSHx: none; - Social history: Smoking status: Patient states was never smoker of tobacco. No barriers to communication noted, The patient speaks fluent Gren[place]. - Family history: Not pertinent. - : The pt / caregiver states he / she is not on anticoagulants. Home medication list is obtained from the patient. - Exposure Risk Screening:: None identified. IT RISK AND ASSURANCE MANAGER: 07/27 17:12 1, Full Term 0, Premature 0, 0, Living 0 dls Vital Signs: 14:06 BP 135 / 73 RA Sitting (auto/reg); Pulse 104; Resp 18; Temp 98.9(O); Pulse Ox 100% on bnb R/A; Weight 78.02 kg / 172 lbs; Height 5 ft. 9 in. (175.26 cm); Pain 5/10; 17:09 BP 134 / 70; Pulse 76; Resp 18; Temp 97.4(TE); Pulse Ox 98% on R/A; Pain 1/10; dls 14:06 Body Mass Index 25.40 (78.02 kg, 175.26 cm) bnb MDM: 14:27 Fingerstick Blood Sugar Ordered. EDMS 14:39 IV Saline Lock ordered. ml 14:39 NS 0.9% 1000 ml IV at bolus once ordered. ml 14:39 Type & Screen Ordered. EDMS 14:39 CBC with Diff Ordered. EDMS 14:39 MED Profile Ordered. EDMS 14:39 UA Ordered. EDMS 14:39 Liver Profile Ordered. EDMS 14:39 Hcg, Serum Quantitative Ordered. EDMS 14:39 Urine Culture Ordered. EDMS 14:40 US Lower Extremity R/O DVT Ordered. EDMS 14:40 US 1st trimester Ordered. EDMS 14:41 Venous Blood Gas (large pea green tube on ice) Ordered. EDMS 14:41 ECG WITH READING ER PHYS+CARDIAG ordered. EDMS 14:53 GC & Chlamydia Amplification Ordered. EDMS 14:53 Wet Prep Ordered. EDMS 15:52 Fingerstick Blood Sugar Reviewed. ml 15:52 Venous Blood Gas (large pea green tube on ice) Reviewed. ml 15:59 Financial registration complete. mpb 16:01 [facility] Payment Agreement was scanned into Next Call[employer] and attached to record. mpb 16:05 CBC with Diff Reviewed. ml 16:05 MED Profile Reviewed. ml 16:05 UA Reviewed. ml 16:05 Liver Profile Reviewed. ml 16:05 Hcg, Serum Quantitative Reviewed. ml 16:05 Type & Screen Reviewed. ml 16:49 Fingerstick Blood Sugar Ordered. EDMS 16:51 Fingerstick Blood Sugar Reviewed. ml 16:51 Wet Prep Reviewed. 07/28 13:27 T-Sheet-- Draft Copy was scanned into [employer] Call[employer] and attached to record. gb 13:27 ECG/EKG was scanned into [employer] and attached to record. gb Administered Medications: 07/27 14:56 Drug: NS 0.9% 1000 ml [sodium chloride 0.9 % intravenous solution] Route: IV; Rate: dls bolus; Site: left antecubital; Signatures: Dispatcher [employer] EDLA Rula Pina MD MD ml Scott, Debra RN RN dls Bee Eagle, Reg Reg gb Noris Wyatt RN RN rs3 Addy Lozano, Reg Reg mpb The chart was reviewed and I authenticate all verbal orders and agree with the evaluation and treatment provided.Attachments: 16:01 [facility] Payment Agreement [facility] 07/28 13:27 T-Sheet-- Draft Copy gb 13:27 ECG/EKG gb Chart Complete MTDD
== END 2016-07-27 17:13 | disposition home or self-care (01) ==
LOC: M ED 14:03
DX: O26.899 Other specified pregnancy related conditions, unspecified trimester (principal); O99.340 Other mental disorders complicating pregnancy, unspecified trimester; O24.119 Pre-existing type 2 diabetes mellitus, in pregnancy, unspecified trimester; Z79.4 Long term (current) use of insulin; Z79.899 Other long term (current) drug therapy; Z88.0 Allergy status to penicillin

== ENCOUNTER → 2016-07-31 | Outpatient (REF) | payer MEDICAID | LOC: M LAB REF 13:15 | PROVIDERS: ATTEND Advanced Practice Midwife | DX: Z34.01 Encounter for supervision of normal first pregnancy, first trimester (principal); Z36 Encounter for antenatal screening of mother ==

== ENCOUNTER → 2016-08-01 | Outpatient (REF) | payer MEDICAID | LOC: M LAB REF 13:58 | PROVIDERS: ATTEND Advanced Practice Midwife | DX: O24.011 Pre-existing type 1 diabetes mellitus, in pregnancy, first trimester (principal) ==

== ENCOUNTER → 2016-08-05 | Outpatient (REF) | payer MEDICAID | LOC: M LAB REF 16:32 | PROVIDERS: ATTEND Obstetrics & Gynecology | DX: O09.91 Supervision of high risk pregnancy, unspecified, first trimester (principal) ==

== ENCOUNTER 2016-09-04 15:58 | Emergency (ER) | payer MEDICAID ==
[~2016-09-04] VITALS: Ht 175.3 cm; Wt 84.8 kg
[2016-09-04] MEDS ORDERED: INSUNSD SC (16:13)
[2016-09-04] MEDS ORDERED: INSURSD SC (16:13)
[2016-09-04] MEDS ORDERED: PRENTAB13 PO (16:13)
[2016-09-04] MEDS ORDERED: HumuLIN R (REGULAR) INSULIN (NovoLIN R) **100U/ML** PER UNIT IV ONE (17:15)
[2016-09-04] MEDS ORDERED: NS 1,000 ML IV ONE (17:15)
[2016-09-04] MEDS ORDERED: ONDANSETRON 4MG/2ML VIAL (J2405) IV ONE (17:15)
[2016-09-04 17:56] LABS: VENOUS BASE EXCESS -1.5 (-2.0-2.0); VENOUS O2 SATURATION 89.9 % (60.0-80.0); VENOUS PARTIAL PRESSURE CO2 39.2 mmHg (38.0-50.0); VENOUS PARTIAL PRESSURE O2 59.1 mmHg (30.0-50.0); VENOUS TOTAL CO2 24.4 MEQ/L (24.0-28.0)
[2016-09-04 18:06] LABS: BASO % 0.2 % (0.0-1.0); EOS # 0.1 K/mm3 (0.0-0.50); EOS % 1.2 % (0.0-3.0); LARGE UNSTAINED CELL # 0.1 K/mm3 (0.0-0.4); LARGE UNSTAINED CELL % 1.2 % (0.0-4.0); LYMPH # 1.9 K/mm3 (1.5-6.5); LYMPH % 20.4 % (24.0-44.0); MEAN CORPUSCULAR HEMOGLOBIN 29.2 pg (27.0-33.0); MEAN CORPUSCULAR HGB CONC 34.4 g/dl (32.0-36.5); MEAN CORPUSCULAR VOLUME 84.7 fl (80.0-96.0); MONO # 0.4 K/mm3 (0.0-0.8); MONO % 4.2 % (0.0-5.0); NEUTROPHILS # 6.8 K/mm3 (1.8-7.7); NEUTROPHILS % 72.7 % (36.0-66.0); PLATELET COUNT, AUTOMATED 325 k/mm3 (150-450); WHITE BLOOD COUNT 9.3 K/mm3 (4.0-10.0)
--- NOTE | 2016-09-04 18:30 | REP ---
OB ULTRASOUND: HISTORY: Pelvic pain. Transvesical imaging was obtained. Within the uterus, there is an anechoic structure with increased echo surrounding it consistent with a decidual reaction. Within the gestational sac, there is a pole, the mean crown rump length measurement of which is consistent with a 12 week 2 days gestational age. Based on that, the estimated date of delivery is 03/17/2017. Doppler interrogation of the heart shows a heart rate of 153 beats per minute. Evaluation of the maternal adnexal spaces showed no abnormalities. No chorionic or subchorionic abnormality was noted. IMPRESSION: Early OB ultrasound as described above. Signed by Sam Bashir DO 09/04/2016 06:44 P
[2016-09-04 19:04] LABS: ALBUMIN 3.7 GM/DL (3.2-5.2); ALBUMIN/GLOBULIN RATIO 1.16 (1.00-1.93); ALKALINE PHOSPHATASE 51 U/L (45-117); ALT/SGPT 16 U/L (12-78); ANION GAP 9 MEQ/L (8-16); AST/SGOT 11 U/L (15-37); BILIRUBIN,DIRECT 0.2 MG/DL (0.0-0.2); BILIRUBIN,TOTAL 0.9 MG/DL (0.2-1.0); BLOOD UREA NITROGEN 10 MG/DL (7-18); CALCIUM LEVEL 8.8 MG/DL (8.5-10.1); CARBON DIOXIDE LEVEL 25 MEQ/L (21-32); CHLORIDE LEVEL 104 MEQ/L (98-107); CREATININE FOR GFR 0.66 MG/DL (0.55-1.02); GLOMERULAR FILTRATION RATE > 60.0 (>60); GLUCOSE, FASTING 117 MG/DL (70-105); HCG, SERUM QUANTITATIVE 37374 MIU/ML; POTASSIUM SERUM 4.2 MEQ/L (3.5-5.1); SODIUM LEVEL 138 MEQ/L (136-145); TOTAL PROTEIN 6.9 GM/DL (6.4-8.2)
[2016-09-04] MEDS ORDERED: ZOFR4TAB3 PO (19:51)
[2016-09-04 20:01] VITALS: BP 115/54
== END 2016-09-04 20:06 | disposition home or self-care (01) ==
LOC: M ED 18:03
DX: O99.89 Other specified diseases and conditions complicating pregnancy, childbirth and the puerperium (principal); A09 Infectious gastroenteritis and colitis, unspecified; O24.011 Pre-existing type 1 diabetes mellitus, in pregnancy, first trimester; O10.011 Pre-existing essential hypertension complicating pregnancy, first trimester; Z3A.12 12 weeks gestation of pregnancy
CPT/HCPCS: 36415; 76801; 80048; 80076; 81001; 82803; 83690; 84702; 85025; 87086; 96374; 99283; J2405

== ENCOUNTER 2016-11-01 13:31 | Outpatient (CLI) | payer MEDICAID, OTHER ==
[~2016-11-01] VITALS: Ht 165.1 cm; Wt 87.0 kg
[~2016-11-01 13:31] MED LIST changes: +GABA-282 PO; -GABA300C3 PO; +INSUNSD SC; +INSURSD SC; +PRENTAB13 PO; +ZOFR4TAB3 PO
[2016-11-01 13:35] VITALS: BP 117/63
[2016-11-01 14:05] VITALS: BP 109/61
[2016-11-01] MEDS ORDERED: ONDANSETRON 4 MG ORAL DISINTEGRATING TAB (S0181) SL SCH (15:00)
[2016-11-01 15:52] VITALS: BP 114/56
[2016-11-01 16:53] LABS: ALBUMIN 2.9 GM/DL (3.2-5.2); ALBUMIN/GLOBULIN RATIO 0.91 (1.00-1.93); ALKALINE PHOSPHATASE 50 U/L (45-117); ALT/SGPT 15 U/L (12-78); ANION GAP 5 MEQ/L (8-16); AST/SGOT 11 U/L (15-37); BILIRUBIN,TOTAL 0.8 MG/DL (0.2-1.0); BLOOD UREA NITROGEN 7 MG/DL (7-18); CARBON DIOXIDE LEVEL 26 MEQ/L (21-32); CHLORIDE LEVEL 106 MEQ/L (98-107); CREATININE FOR GFR 0.51 MG/DL (0.55-1.02); GLOMERULAR FILTRATION RATE > 60.0 (>60); GLUCOSE, FASTING 84 MG/DL (70-105); POTASSIUM SERUM 3.6 MEQ/L (3.5-5.1); SODIUM LEVEL 137 MEQ/L (136-145); TOTAL PROTEIN 6.1 GM/DL (6.4-8.2)
--- NOTE | 2016-11-01 17:01 | IPNPDOC ---
Text Note Date of Service The patient was seen on 11/01/16 at 1500. NOTE Subjective: Patient is a 21 year old female who is a who is 19 week 5 days gestation with an ISAIAH of 03/19/17 based off of a 1st trimester ultrasound and consistent with her LMP. She initiated care in her 1st trimester at [facility] and transferred her care to the Center for the remainder of her due to uncontrolled Type I diabetes mellitus. Her care was transferred at 13 weeks gestation. She came into the ED with complaints of nausea, vomiting, feeling weak, and difficulty breathing. Patient reports that she did have some slight aching pain in her left upper quadrant last night that she no longer has. She reports the difficulty breathing prior to and after she vomited. She reports her fasting blood sugar today was 140, her 2 hr post prandial was 200 and prior to eating lunch it was 90. She gave herself 7 units of Humalog prior to eating her lunch: 1 hot dog and ramen noodles. She vomited 3 times after eating her hot dog and 2-3 bites of ramen. She reports that her Humalog is 1 unit per 8 grams of carbohydrates prior to her meals and NPH: 46 units in am and 24 units at night. She states that she has not been symptomatic when her blood sugar is 65-70. Reports her last HgA1C to be 7. It was 11.2 when she was 7 weeks gestation. Denies vaginal bleeding or leaking of fluid. Reports occasional movement. Objective: FHR: 160. Abdomen palpates soft without tenderness. SpO2: 100%. VS stable. Blood sugar when patient arrived: 72. 1/2 hour after arrival: 65. Given gingerale by nurse and 1/2 hour after blood sugar was 101. Alert and oriented x3. Assessment: IUP at 19.5 weeks gestation, Type I DM, nausea and vomiting in . Plan: Order for Zofran given. If patient feels better she can advance diet to carbohydrate diet. [facility] contacted and unable to get records. Dr. Correa contacted to collaborate on plan of care. Will do a CMP and continue to monitor for symptoms. VS,Fishbone, I+O VS, Fishbone, I+O Vital Signs Date Time Temp Pulse Resp B/P (MAP) Pulse Ox O2 Delivery O2 Flow Rate FiO2 11/01/16 15:52 79 18 114/56 (75) 11/01/16 13:35 98.2 DAMARIS HEARN CNM November 01, 2016 16:46
--- NOTE | 2016-11-01 17:09 | IPNPDOC ---
Text Note Date of Service The patient was seen on 11/01/16. NOTE Subjective: Patient reports she feels much better after her dose of zofran. Reports no nausea or difficulty breathing. Denies any new symptoms. She ordered food and has been able to eat without nausea. Objective: CPA WNL. Bloos sugar prior to eating was 101. Assessment: IUP @ 19.5 weeks gestation, type I DM, nausea and vomiting in Plan: Patient may be discharged to home. Zofran sent to pharmacy to take as needed every 6 hours for nausea PRN. Patient to continue care with [facility]. Her next appointment is this Thursday. She is to continue her insulin regiment as prescribed. Patient to contact provider with vaginal bleeding, blood sugars over 300 or under 60. VS,Fishbone, I+O VS, Fishbone, I+O Laboratory Tests 11/01/16 16:05 Calcium Level 8.0 L, Aspartate Amino Transf (AST/SGOT) 11 L, Alanine Aminotransferase (ALT/SGPT) 15, Alkaline Phosphatase 50, Total Bilirubin 0.8, Total Protein 6.1 L, Albumin 2.9 L Vital Signs Date Time Temp Pulse Resp B/P (MAP) Pulse Ox O2 Delivery O2 Flow Rate FiO2 11/01/16 15:52 79 18 114/56 (75) 11/01/16 13:35 98.2 DAMARIS HEARN CNM November 01, 2016 17:09
== END 2016-11-01 17:35 | disposition home or self-care (01) ==
LOC: M LDO 13:31
PROVIDERS: ATTEND Advanced Practice Midwife
DX: O26.892 Other specified pregnancy related conditions, second trimester (principal); O21.9 Vomiting of pregnancy, unspecified; Z3A.19 19 weeks gestation of pregnancy; O24.012 Pre-existing type 1 diabetes mellitus, in pregnancy, second trimester; R06.00 Dyspnea, unspecified; Z88.8 Allergy status to other drugs, medicaments and biological substances; Z88.0 Allergy status to penicillin

== ENCOUNTER 2016-11-04 12:49 | Outpatient (CLI) | payer OTHER ==
[~2016-11-04] VITALS: Ht 175.3 cm; Wt 88.0 kg
[2016-11-04 12:59] VITALS: BP 117/64
[2016-11-04] MEDS ORDERED: HumuLIN R (REGULAR) INSULIN (NovoLIN R) **100U/ML** PER UNIT SC ONE (13:30)
[2016-11-04] MEDS ORDERED: ACETAMINOPHEN TAB 650MG DOSE (2X325MG) PO ONE (13:45)
[2016-11-04 13:46] LABS: MEAN CORPUSCULAR HEMOGLOBIN 30.4 pg (27.0-33.0); MEAN CORPUSCULAR HGB CONC 35.1 g/dl (32.0-36.5); MEAN CORPUSCULAR VOLUME 86.5 fl (80.0-96.0); RED CELL DISTRIBUTION WIDTH 12.1 % (11.5-14.5); WHITE BLOOD COUNT 8.8 K/mm3 (4.0-10.0)
[2016-11-04 14:06] LABS: ALKALINE PHOSPHATASE 49 U/L (45-117); ALT/SGPT 16 U/L (12-78); ANION GAP 8 MEQ/L (8-16); AST/SGOT 8 U/L (15-37); BILIRUBIN,TOTAL 0.8 MG/DL (0.2-1.0); BLOOD UREA NITROGEN 10 MG/DL (7-18); CARBON DIOXIDE LEVEL 25 MEQ/L (21-32); CHLORIDE LEVEL 104 MEQ/L (98-107); CREATININE FOR GFR 0.61 MG/DL (0.55-1.02); GLOMERULAR FILTRATION RATE > 60.0 (>60); GLUCOSE, FASTING 173 MG/DL (70-105); POTASSIUM SERUM 3.8 MEQ/L (3.5-5.1); SODIUM LEVEL 137 MEQ/L (136-145)
[2016-11-04 14:36] VITALS: BP 113/62
[2016-11-04 15:39] VITALS: BP 107/53
== END 2016-11-04 17:17 | disposition home or self-care (01) ==
LOC: M LDO 12:49
PROVIDERS: ATTEND Obstetrics & Gynecology
DX: O24.112 Pre-existing type 2 diabetes mellitus, in pregnancy, second trimester (principal); O36.8120 Decreased fetal movements, second trimester, not applicable or unspecified; Z3A.21 21 weeks gestation of pregnancy; R51 Headache; Z91.19 Patient's noncompliance with other medical treatment and regimen

== ENCOUNTER → 2017-01-02 | Outpatient (CLI) | payer OTHER ==
[~2017-01-02] VITALS: Ht 154.9 cm; Wt 97.0 kg
[~2017-01-02] MED LIST changes: -AVEL1TAB PO; +AVEL1TAB3 PO; -MUCI600T34 PO; +MUCI600T37 PO; -PRENTAB13 PO; +PRENTAB20 PO; +[UNRECOGNIZED DRUG - OTHER] PO
[2017-01-02 16:05] VITALS: BP 99/64
[2017-01-02 17:30] VITALS: BP 103/67
[2017-01-02 17:34] LABS: BASO # 0.1 K/mm3 (0.0-0.2); BASO % 0.9 % (0.0-1.0); EOS # 0.1 K/mm3 (0.0-0.50); EOS % 1.5 % (0.0-3.0); LARGE UNSTAINED CELL # 0.1 K/mm3 (0.0-0.4); LARGE UNSTAINED CELL % 1.1 % (0.0-4.0); LYMPH # 1.6 K/mm3 (1.5-6.5); LYMPH % 22.6 % (24.0-44.0); MEAN CORPUSCULAR HEMOGLOBIN 30.4 pg (27.0-33.0); MEAN CORPUSCULAR HGB CONC 34.7 g/dl (32.0-36.5); MEAN CORPUSCULAR VOLUME 87.4 fl (80.0-96.0); MONO # 0.4 K/mm3 (0.0-0.8); MONO % 5.9 % (0.0-5.0); NEUTROPHILS # 4.8 K/mm3 (1.8-7.7); NEUTROPHILS % 68.1 % (36.0-66.0); PLATELET COUNT, AUTOMATED 252 k/mm3 (150-450); RED CELL DISTRIBUTION WIDTH 12.4 % (11.5-14.5)
[2017-01-02 17:45] LABS: ANION GAP 7 MEQ/L (8-16); BLOOD UREA NITROGEN 9 MG/DL (7-18); CALCIUM LEVEL 8.4 MG/DL (8.5-10.1); CARBON DIOXIDE LEVEL 24 MEQ/L (21-32); CHLORIDE LEVEL 103 MEQ/L (98-107); GLOMERULAR FILTRATION RATE > 60.0 (>60); GLUCOSE, FASTING 129 MG/DL (70-105); POTASSIUM SERUM 3.9 MEQ/L (3.5-5.1); SODIUM LEVEL 134 MEQ/L (136-145)
[2017-01-02 18:44] VITALS: BP 108/64
== END ==
LOC: M LDO 15:46
PROVIDERS: ATTEND Specialist
DX: O47.03 False labor before 37 completed weeks of gestation, third trimester (principal); Z3A.28 28 weeks gestation of pregnancy; O26.893 Other specified pregnancy related conditions, third trimester; R10.9 Unspecified abdominal pain; M54.5 Low back pain; O24.414 Gestational diabetes mellitus in pregnancy, insulin controlled; Z96.41 Presence of insulin pump (external) (internal); Z88.0 Allergy status to penicillin; Z88.8 Allergy status to other drugs, medicaments and biological substances

== ENCOUNTER 2017-02-27 11:13 | Outpatient (CLI) | payer OTHER ==
[~2017-02-27] VITALS: Ht 175.3 cm; Wt 104.6 kg
[2017-02-27 11:28] VITALS: BP 102/64
== END 2017-02-27 12:58 | disposition home or self-care (01) ==
LOC: M LDO 11:13
PROVIDERS: ATTEND Obstetrics & Gynecology
DX: O36.8130 Decreased fetal movements, third trimester, not applicable or unspecified (principal); Z3A.36 36 weeks gestation of pregnancy; O24.113 Pre-existing type 2 diabetes mellitus, in pregnancy, third trimester; Z88.0 Allergy status to penicillin; Z88.3 Allergy status to other anti-infective agents

== ENCOUNTER 2017-02-27 20:52 | Outpatient (CLI) | payer OTHER ==
[~2017-02-27] VITALS: Ht 175.3 cm; Wt 106.0 kg
[2017-02-27 21:11] VITALS: BP 125/64
[2017-02-27 21:59] LABS: GLUCOSE,RANDOM 402 MG/DL (LESS THAN 200)
[2017-02-27] MEDS ORDERED: NS 1,000 ML IV SCH (22:00)
[2017-02-27 22:24] LABS: ALBUMIN 2.6 GM/DL (3.2-5.2); ALKALINE PHOSPHATASE 149 U/L (45-117); ALT/SGPT 14 U/L (12-78); ANION GAP 13 MEQ/L (8-16); AST/SGOT 12 U/L (15-37); BLOOD UREA NITROGEN 10 MG/DL (7-18); CALCIUM LEVEL 8.3 MG/DL (8.5-10.1); CARBON DIOXIDE LEVEL 17 MEQ/L (21-32); CHLORIDE LEVEL 104 MEQ/L (98-107); CREATININE FOR GFR 0.75 MG/DL (0.55-1.02); GLOMERULAR FILTRATION RATE > 60.0 (>60); POTASSIUM SERUM 4.2 MEQ/L (3.5-5.1); SODIUM LEVEL 134 MEQ/L (136-145); TOTAL PROTEIN 6.3 GM/DL (6.4-8.2)
[2017-02-27 22:34] VITALS: BP 110/60
[2017-02-28 00:17] VITALS: BP 105/57
--- NOTE | 2017-02-28 01:12 | IPNPDOC ---
Text Note Date of Service The patient was seen on 02/27/17. NOTE Subjective: Patient is a 22 year-old female who is a at 36.5 wks gestation with an ISAIAH of 03/23/17 based off of her 1st trimester ultrasound. She initiated her care at [facility] in her first trimester and was transferred to the Center due to uncontrolled type I diabetes. She presents to L&D with complaints of decreased movement, contractions, and elevated blood sugar. Patient has an insulin pump that has been present for 2 months and is set at 1 unit per 4 carbohydrates. She reports that her last blood sugar 371. Diet reviewed with patient. She had half a sub and her blood sugar was 194. She "accidently" gave herself 14 units instead of 4 units of insulin. She then ate half a donut so that her blood sugar wouldn't get too low. She reports decreased movement for a few days but reports she is feeling movement. She also has been complaining of contractions for 2 weeks but reports these are stronger. Denies any vaginal bleeding or leaking of fluid. Reports her pump is to be moved every 3 days and it has been 3 days. Patient's mother encouraged to obtain patient's kit so patient can change her pump to make sure it is appropriately working. Objective: FHR: 145, moderate variability, no decelerations, positive accelerations. Contractions every 2 to 4 minutes. Vital signs: see below. Labs: see below. SVE: FT/thick/high, soft, midposition, no show. Blood sugar 1 hour after initial is 270. Assessment: IUP at 36,4 weeks gestation, Type I DM, decreased movement, not in active labor, Category I FHR tracing Plan: Labs ordered. Random glucose is 402. Saline lock started with 1 liter of NS to be bolus. Patient is to change her insulin pump site. Blood sugars to be obtained every hour. Continue with NS at 250 cc/hr. Labs per order. Reviewed with Dr. Manzo. Ordered for patient to bolus her pump with 8 units of insulin. Growth ultrasound also ordered per Dr. Manzo. Will continue to monitor. VS,Fishbone, I+O VS, Fishbone, I+O Laboratory Tests 02/27/17 21:22 Random Glucose 402 *H, Calcium Level 8.3 L, Aspartate Amino Transf (AST/SGOT) 12 L, Alanine Aminotransferase (ALT/SGPT) 14, Alkaline Phosphatase 149 H, Total Bilirubin 1.0, Total Protein 6.3 L, Albumin 2.6 L Item Value Date Time Sodium Level 134 MEQ/L L 02/27/172121 Potassium Level 4.2 MEQ/L 02/27/172121 Chloride Level 104 MEQ/L 02/27/172121 Carbon Dioxide Level 17 MEQ/L L 02/27/172121 Anion Gap 13 MEQ/L 02/27/172121 Blood Urea Nitrogen 10 MG/DL 02/27/172121 Creatinine 0.75 MG/DL 02/27/172121 Glomerular Filtration Rate > 60.0 02/27/172121 Random Glucose 402 MG/DL *H 02/27/172121 Fasting Glucose MG/DL 02/27/172121 Lactic Acid Level 0.8 MMOL/L 02/27/172221 Calcium Level 8.3 MG/DL L 02/27/172121 Total Bilirubin 1.0 MG/DL 02/27/172121 Aspartate Amino Transf (AST/SGOT) 12 U/L L 02/27/172121 Alanine Aminotransferase (ALT/SGPT) 14 U/L 02/27/172121 Alkaline Phosphatase 149 U/L H 02/27/172121 Total Protein 6.3 GM/DL L 02/27/172121 Albumin 2.6 GM/DL L 02/27/172121 Albumin/Globulin Ratio 0.70 L 02/27/172121 Vital Signs Date Time Temp Pulse Resp B/P (MAP) Pulse Ox O2 Delivery O2 Flow Rate FiO2 02/27/17 22:34 98.4 92 18 110/60 (77) DAMARIS HEARN CNM Feb 28, 2017 01:12
[2017-02-28 01:30] VITALS: BP 107/55
[2017-02-28] MEDS ORDERED: PROMETHAZINE INJ 25 MG/ML VIAL (J2550) IV ONE (01:30)
[2017-02-28] MEDS ORDERED: BUTORPHANOL 2 MG/ML INJ (J0595) IV ONE (01:30)
--- NOTE | 2017-02-28 01:30 | REPUSA ---
CLINICAL HISTORY: Pelvic pain. TECHNIQUE: Realtime sonographic images were obtained in multiple projections via TA approach. The exa mination was performed by the senior data warehouse developer and still images were submitted for interpretation. COMMENTS: Single, live intrauterine gestation. Vertex presentation. motion was identified. heart rate 132 beats per minute. Posterior/fundal placenta. No evidence of placenta previa or placental abruption. Placenta grade 2. The amniotic fluid is at upper limits of normal. The cervix measures 4.6 cm. No maternal adnexal abnormality is seen. Estimated gestation age 39 weeks and 6 days. Estimated delivery date on 03/01/2017. Macrosomia is noted. gender wasn't documented as made. Bilateral hydroceles are seen. Nuchal CORD was not seen. Unremarkable resistive index in the umbilical cord ranging between 0.58 in the upper and 0.64. Amniotic fluid index 20.3 cm. Estimated weight 4160 g. IMPRESSION: Single, live intrauterine gestation. Additional findings as above. Thank you for your kind referral of this patient.
[2017-02-28 02:41] VITALS: BP 116/55
[2017-02-28 05:45] VITALS: BP 108/54
[2017-02-28 07:49] VITALS: BP 101/55
[2017-02-28 09:26] VITALS: BP 105/58
--- NOTE | 2017-02-28 10:53 | IPNPDOC ---
Text Note Date of Service The patient was seen on 02/28/17 AT 0200. NOTE SUBJECTIVE: Patient report she still feels contractions but they are less painful. Reports pain to be 5/10. Patient and family asking about a transfer to [place] if she is in labor. Patient states that her providers told her that if she showed up at [facility] in active labor that we would transfer her to [place]. Reviewed with patient that at this gestational age and the fact that there are no anomalies with fetus, we would not transfer patient as we could take care of her, her DM, and her . Patient concerned because she does not want to be from her . Reviewed NICU standards at [facility] with patient. Encouraged patient and family that if she thinks she is in labor she should go to the place that she intends to deliver. Patient reports that she is scheduled for a at 38 weeks due to DM and macrosomia. Reports active movement at this time. Patient has changed site for insulin pump. OBJECTIVE: VS stable: see below. Blood sugars are improving. SVE: unchanged. FHR : 130, moderate variability, positive accelerations, no decelerations. Contractions every 4 to 9 minutes. Ultrasound: see below. ASSESSMENT: IUP at 36.5 weeks gestation, Diabetes mellitus Type I, Category I FHR tracing, not in active labor. PLAN:Continue with EFM. Continue with NS at 250 cc/hr. Continue with fingersticks every hour. Patient does desire something to help her sleep. Stadol and Phenergan IV ordered to help with pain and help patient sleep. Reviewed medication with patient and family. Reviewed plan for patient to stay the night and anticipate discharge in the am if her blood sugars are stabilized. VS,Fishbone, I+O VS, Fishbone, I+O Laboratory Tests 02/27/17 21:22 Random Glucose 402 *H, Calcium Level 8.3 L, Aspartate Amino Transf (AST/SGOT) 12 L, Alanine Aminotransferase (ALT/SGPT) 14, Alkaline Phosphatase 149 H, Total Bilirubin 1.0, Total Protein 6.3 L, Albumin 2.6 L Item Value Date Time Bedside Glucose (Misc Panel) 155 MG/DL H 02/28/17 0129 Vital Signs Vital Signs Label Value Date Time Pulse 76 02/28/17 0017 Respiratory Rate 18 bpm 02/28/17 0017 Blood Pressure Assessment 105/57 (73) 02/28/17 0017 Source Automatic Cuff (NIBP) Pulse 81 02/28/17 0130 Respiratory Rate 18 bpm 02/28/17 0130 Blood Pressure Assessment 107/55 (72) 02/28/17 0130 Source Automatic Cuff (NIBP) I&O- Last 24 Hours up to 6 AM 02/28/17 05:59 Output Total 500 ml Balance -500 ml COMMENTS: Single, live intrauterine gestation. Vertex presentation. motion was identified. heart rate 132 beats per minute. Posterior/fundal placenta. No evidence of placenta previa or placental abruption. Placenta grade 2. The amniotic fluid is at upper limits of normal. The cervix measures 4.6 cm. No maternal adnexal abnormality is seen. Estimated gestation age 39 weeks and 6 days. Estimated delivery date on 03/01/2017. Macrosomia is noted. gender wasn't documented as made. Bilateral hydroceles are seen. Nuchal CORD was not seen. Unremarkable resistive index in the umbilical cord ranging between 0.58 in the upper and 0.64. Amniotic fluid index 20.3 cm. Estimated weight 4160 g. IMPRESSION: Single, live intrauterine gestation. Additional findings as above. DAMARIS HEARN CNM Feb 28, 2017 10:53
--- NOTE | 2017-02-28 11:30 | IPNPDOC ---
Text Note Date of Service The patient was seen on 02/28/17929. NOTE SUBJECTIVE: Patient reports she feels well. Only feeling occasional contractions. Given an ADA diet this morning. Reports she ate 60 grams of carbs. Tolerating meal well. States she was able to sleep comfortably for a few hours last night. OBJECTIVE: VS stable. Blood sugars see below. FHR 130, moderate variability, positive accelerations, no decelerations. Contractions are occasional. ASSESSMENT: IUP at 36.5 weeks gestation, DM Type I, Category I FHR tracing PLAN: Patient to be discharged to home. Saline lock to be removed. Extensive education done with patient. Encouraged patient to call providers with elevated BS over 300 and under 60. Reviewed labor signs and symptoms, appropriate movement, and danger signs to report. Encouraged patient to stick with diabetic diet and be very careful what she is consuming. Encouraged increased water intake. Patient and mother verbalized understanding. patient to follow up at the [facility] with her routine OB appointment. VS,Fishbone, I+O VS, Fishbone, I+O Laboratory Tests 02/27/17 21:22 Random Glucose 402 *H, Calcium Level 8.3 L, Aspartate Amino Transf (AST/SGOT) 12 L, Alanine Aminotransferase (ALT/SGPT) 14, Alkaline Phosphatase 149 H, Total Bilirubin 1.0, Total Protein 6.3 L, Albumin 2.6 L Item Value Date Time Bedside Glucose (Misc Panel) 155 MG/DL H 02/28/17 0338 Bedside Glucose (Misc Panel) 138 MG/DL H 02/28/17 0439 Bedside Glucose (Misc Panel) 130 MG/DL H 02/28/17 0544 Item Value Date Time Bedside Glucose (Misc Panel) 109 MG/DL H 02/28/17 0642 Bedside Glucose (Misc Panel) 92 MG/DL 02/28/17 0748 Bedside Glucose (Misc Panel) 185 MG/DL H 02/28/17 0928 Bedside Glucose (Misc Panel) 175 MG/DL H 02/28/17 1036 Vital Signs Date Time Temp Pulse Resp B/P (MAP) Pulse Ox O2 Delivery O2 Flow Rate FiO2 02/28/17 09:26 76 18 105/58 (74) 02/28/17 07:49 98.3 I&O- Last 24 Hours up to 6 AM 02/28/17 05:59 Output Total 500 ml Balance -500 ml DAMARIS HEARN CNM Feb 28, 2017 11:30
== END 2017-02-28 10:50 | disposition home or self-care (01) ==
LOC: M LDO 20:52
PROVIDERS: ATTEND Advanced Practice Midwife
DX: O36.8130 Decreased fetal movements, third trimester, not applicable or unspecified (principal); O99.810 Abnormal glucose complicating pregnancy; O47.03 False labor before 37 completed weeks of gestation, third trimester; Z3A.36 36 weeks gestation of pregnancy; Z88.0 Allergy status to penicillin; Z88.3 Allergy status to other anti-infective agents
CPT/HCPCS: 36415; 76815; 80053; 81001; 82947; 83605; 96374; 96375; J0595

== ENCOUNTER → 2017-07-15 | Outpatient (CLI) | payer OTHER | LOC: M RAD 17:47 | DX: M51.36 Other intervertebral disc degeneration, lumbar region (principal) | CPT/HCPCS: 72148 ==

== ENCOUNTER 2017-09-18 12:19 | Emergency (ER) | payer OTHER ==
[2017-09-18] MEDS: CLINDAMYCIN 150 MG CAP PO (12:30)
== END 2017-09-18 12:45 | disposition home or self-care (01) ==
LOC: M ED 12:19
DX: K04.7 Periapical abscess without sinus (principal); K02.9 Dental caries, unspecified; K08.89 Other specified disorders of teeth and supporting structures; E11.9 Type 2 diabetes mellitus without complications; Z79.4 Long term (current) use of insulin; Z79.899 Other long term (current) drug therapy; Z88.0 Allergy status to penicillin
CPT/HCPCS: 99283

== ENCOUNTER → 2017-11-20 | Outpatient (REF) | payer OTHER ==
[2017-11-20 13:36] LABS: APPEARANCE, URINE CLEAR (CLEAR); BACTERIA, URINE AUTO NEGATIVE (NEGATIVE); BILIRUBIN, URINE AUTO NEGATIVE (NEGATIVE); BLOOD, URINE BLOOD NEGATIVE (NEGATIVE); COLOR, URINE YELLOW (YELLOW); GLUCOSE, URINE (UA) AUTO 3+ mg/dL (NEGATIVE); KETONE, URINE AUTO NEGATIVE (NEGATIVE); LEUKOCYTE ESTERASE, URINE AUTO NEGATIVE (NEGATIVE); MUCUS, URINE SMALL (NEGATIVE); NITRITE, URINE AUTO NEGATIVE (NEGATIVE); PROTEIN, URINE AUTO NEGATIVE (NEGATIVE); RBC, URINE AUTO 0 /HPF (0-3); SPECIFIC GRAVITY URINE AUTO 1.028 (1.002-1.035); SQUAMOUS EPITHELIAL CELL UR AU 2 /HPF (0-6); WBC, URINE AUTO 4 /HPF (0-3)
== END ==
LOC: M LAB REF 13:09
DX: N39.0 Urinary tract infection, site not specified (principal)

== ENCOUNTER 2018-01-08 13:21 | Emergency (ER) | payer OTHER ==
[2018-01-08] MEDS: HumuLIN R (REGULAR) INSULIN (NovoLIN R) **100U/ML** PER UNIT SC (13:54)
[2018-01-08] MEDS: NS 1,000 ML IV ×2 (13:54→14:56)
[2018-01-08] MEDS: ONDANSETRON 4MG/2ML VIAL (J2405) IV (13:54)
[2018-01-08 14:10] LABS: BASO % 0.6 % (0.0-1.0); EOS # 0.2 10^3/uL (0.0-0.50); EOS % 2.4 % (0.0-3.0); HEMATOCRIT 39.9 % (36.0-47.0); HEMOGLOBIN 13.1 g/dl (12.0-15.5); IMMATURE GRANULOCYTE % 0.3 % (0-3.0); LYMPH # 1.9 10^3/uL (1.5-6.5); LYMPH % 26.1 % (24.0-44.0); MEAN CORPUSCULAR HEMOGLOBIN 28.4 pg (27.0-33.0); MEAN CORPUSCULAR HGB CONC 32.8 g/dl (32.0-36.5); MEAN CORPUSCULAR VOLUME 86.6 fl (80.0-96.0); MONO # 0.5 10^3/uL (0.0-0.8); MONO % 6.7 % (0.0-5.0); NEUTROPHILS # 4.6 10^3/uL (1.8-7.7); NEUTROPHILS % 63.9 % (36.0-66.0); PLATELET COUNT, AUTOMATED 306 10^3/uL (150-450); RED BLOOD COUNT 4.61 10^6/uL (4.00-5.40); RED CELL DISTRIBUTION WIDTH 12.3 % (11.5-14.5); WHITE BLOOD COUNT 7.1 10^3/uL (4.0-10.0)
[2018-01-08 14:29] LABS: ALBUMIN 3.5 GM/DL (3.2-5.2); ALBUMIN/GLOBULIN RATIO 0.97 (1.00-1.93); ALKALINE PHOSPHATASE 89 U/L (45-117); ALT/SGPT 20 U/L (12-78); ANION GAP 5 MEQ/L (8-16); AST/SGOT 12 U/L (7-37); BILIRUBIN,TOTAL 0.5 MG/DL (0.2-1.0); BLOOD UREA NITROGEN 11 MG/DL (7-18); CALCIUM LEVEL 8.5 MG/DL (8.5-10.1); CARBON DIOXIDE LEVEL 28 MEQ/L (21-32); CHLORIDE LEVEL 105 MEQ/L (98-107); CREATININE FOR GFR 0.89 MG/DL (0.55-1.30); GLOMERULAR FILTRATION RATE > 60.0 (>60); GLUCOSE, FASTING 287 MG/DL (70-100); LIPASE 103 U/L (73-393); POTASSIUM SERUM 4.4 MEQ/L (3.5-5.1); SODIUM LEVEL 138 MEQ/L (136-145); TOTAL PROTEIN 7.1 GM/DL (6.4-8.2)
[2018-01-08 14:31] LABS: ESTIMATED AVERAGE GLUCOSE 249 MG/DL (60-110); HEMOGLOBIN A1c 10.3 %
[2018-01-08 14:32] LABS: LACTIC ACID SEPSIS PROTOCOL 1.4 MMOL/L (0.4-2.0)
[2018-01-08 14:45] LABS: HCG, SERUM QUANTITATIVE < 1.0 MIU/ML
[2018-01-08 14:50] LABS: ABG BASE EXCESS -1.7 (-2.0-2.0); ABG HCO3 22.4 MEQ/L (22.0-26.0); ABG O2 SATURATION 98.1 % (95.0-99.0); ABG PARTIAL PRESSURE CO2 36.2 mmHg (35.0-45.0); ABG PARTIAL PRESSURE O2 101.2 mmHg (75.0-100.0); ABG TOTAL CO2 23.5 MEQ/L (22.0-29.0)
[2018-01-08 14:59] LABS: BEDSIDE GLUCOSE 266 MG/DL (70-105)
[2018-01-08] MEDS: HumuLIN R (REGULAR) INSULIN (NovoLIN R) **100U/ML** PER UNIT IV (15:00)
[2018-01-08 15:47] LABS: APPEARANCE, URINE CLEAR (CLEAR); BACTERIA, URINE AUTO NEGATIVE (NEGATIVE); BILIRUBIN, URINE AUTO NEGATIVE (NEGATIVE); BLOOD, URINE BLOOD NEGATIVE (NEGATIVE); COLOR, URINE STRAW (YELLOW); GLUCOSE, URINE (UA) AUTO 3+ mg/dL (NEGATIVE); KETONE, URINE AUTO NEGATIVE (NEGATIVE); LEUKOCYTE ESTERASE, URINE AUTO NEGATIVE (NEGATIVE); NITRITE, URINE AUTO NEGATIVE (NEGATIVE); PROTEIN, URINE AUTO NEGATIVE (NEGATIVE); RBC, URINE AUTO 1 /HPF (0-3); SPECIFIC GRAVITY URINE AUTO 1.018 (1.002-1.035); SQUAMOUS EPITHELIAL CELL UR AU 0 /HPF (0-6); UROBILINOGEN, URINE AUTO 0.2 mg/dL (0.0-2.0); WBC, URINE AUTO 1 /HPF (0-3)
[2018-01-08 16:00] LABS: BEDSIDE GLUCOSE 188 MG/DL (70-105)
[2018-01-10 10:51] LABS: BEDSIDE GLUCOSE 257 MG/DL (70-105)
== END 2018-01-08 16:25 | disposition home or self-care (01) ==
LOC: M ED 13:21
DX: R10.84 Generalized abdominal pain (principal); R10.9 Unspecified abdominal pain; E10.9 Type 1 diabetes mellitus without complications; F41.9 Anxiety disorder, unspecified; Z87.440 Personal history of urinary (tract) infections; Z87.01 Personal history of pneumonia (recurrent); Z79.4 Long term (current) use of insulin; Z79.899 Other long term (current) drug therapy; Z88.0 Allergy status to penicillin; Z88.1 Allergy status to other antibiotic agents
CPT/HCPCS: J2405

== ENCOUNTER 2018-02-24 22:26 | Emergency (ER) | payer OTHER ==
[2018-02-24 22:41] LABS: BEDSIDE GLUCOSE 574 MG/DL (70-105)
[2018-02-24] MEDS: NS 1,000 ML IV (22:45)
[2018-02-24] MEDS: HumuLIN R (REGULAR) INSULIN (NovoLIN R) **100U/ML** PER UNIT IV (23:00)
[2018-02-24 23:08] LABS: BASO # 0.1 10^3/uL (0.0-0.2); BASO % 0.9 % (0.0-1.0); EOS # 0.1 10^3/uL (0.0-0.50); EOS % 1.5 % (0.0-3.0); HEMATOCRIT 38.8 % (36.0-47.0); HEMOGLOBIN 12.9 g/dl (12.0-15.5); IMMATURE GRANULOCYTE % 0.2 % (0-3.0); LYMPH # 1.9 10^3/uL (1.5-6.5); LYMPH % 23.8 % (24.0-44.0); MEAN CORPUSCULAR HEMOGLOBIN 28.2 pg (27.0-33.0); MEAN CORPUSCULAR HGB CONC 33.2 g/dl (32.0-36.5); MEAN CORPUSCULAR VOLUME 84.7 fl (80.0-96.0); MONO # 0.6 10^3/uL (0.0-0.8); MONO % 6.8 % (0.0-5.0); NEUTROPHILS # 5.4 10^3/uL (1.8-7.7); NEUTROPHILS % 66.8 % (36.0-66.0); PLATELET COUNT, AUTOMATED 312 10^3/uL (150-450); RED BLOOD COUNT 4.58 10^6/uL (4.00-5.40); RED CELL DISTRIBUTION WIDTH 11.9 % (11.5-14.5); WHITE BLOOD COUNT 8.1 10^3/uL (4.0-10.0)
[2018-02-24] MEDS: ONDANSETRON 4MG/2ML VIAL (J2405) IV (23:09)
[2018-02-24 23:15] LABS: VENOUS BASE EXCESS -4.5 (-2.0-2.0); VENOUS HCO3 19.2 MEQ/L (23.0-27.0); VENOUS O2 SATURATION 95.4 % (60.0-80.0); VENOUS PARTIAL PRESSURE CO2 31.8 mmHg (38.0-50.0); VENOUS PARTIAL PRESSURE O2 76.1 mmHg (30.0-50.0); VENOUS PH 7.399 UNITS (7.330-7.430); VENOUS STANDARD HCO3 20.7 MEQ/L; VENOUS TOTAL CO2 20.2 MEQ/L (24.0-28.0)
[2018-02-24 23:29] LABS: CONTROL LINE HCG INT CTR LINE PRESENT; HCG, SERUM QUALITATIVE NEGATIVE (NEGATIVE); OSMOLALITY SERUM 304 MOSM/KG (275-295)
[2018-02-25 00:02] LABS: ANION GAP 15 MEQ/L (8-16); BLOOD UREA NITROGEN 15 MG/DL (7-18); CARBON DIOXIDE LEVEL 20 MEQ/L (21-32); CHLORIDE LEVEL 96 MEQ/L (98-107); CREATININE FOR GFR 1.03 MG/DL (0.55-1.30); GLOMERULAR FILTRATION RATE > 60.0 (>60); POTASSIUM SERUM 4.3 MEQ/L (3.5-5.1); SODIUM LEVEL 131 MEQ/L (136-145)
[2018-02-25 00:26] LABS: ESTIMATED AVERAGE GLUCOSE 255 MG/DL (60-110); HEMOGLOBIN A1c 10.5 %
[2018-02-25 00:34] LABS: BEDSIDE GLUCOSE 334 MG/DL (70-105)
[2018-02-25 00:57] LABS: KETONE, URINE AUTO RFX 2+ mg/dL (NEGATIVE); LEUKOCYTE ESTERASE UR AUTO RFX NEGATIVE (NEGATIVE); NITRITE, URINE AUTO RFX NEGATIVE (NEGATIVE); RBC, URINE AUTO RFX 0 /HPF (0-3); SPECIFIC GRAVITY UR AUTO RFX 1.027 (1.002-1.035); SQUAM EPITHELIAL CELL UR AURFX 0 /HPF (0-6); WBC, URINE AUTO RFX 0 /HPF (0-3)
[2018-02-25 01:28] LABS: GLUCOSE, FASTING 561 MG/DL (70-100)
[2018-02-25] MEDS: HumuLIN R (REGULAR) INSULIN (NovoLIN R) **100U/ML** PER UNIT IV (02:00)
[2018-02-25 02:01] LABS: BEDSIDE GLUCOSE 340 MG/DL (70-105)
== END 2018-02-25 02:53 | disposition home or self-care (01) ==
LOC: M ED 22:26
DX: E10.65 Type 1 diabetes mellitus with hyperglycemia (principal); Z79.4 Long term (current) use of insulin; Z79.899 Other long term (current) drug therapy; Z88.0 Allergy status to penicillin
CPT/HCPCS: J2405

== ENCOUNTER → 2018-08-13 | Outpatient (REF) | payer OTHER, MEDICAID ==
[~2018-08-13] MED LIST changes: +CLEO300C2 PO; -GABA-282 PO; +GABA-843 PO; +IBUP80TA PO; +MIRE1IUD IU; +NORCOTAB PO; +TYLE500T78 PO; +ZOFR4TAB14 PO; -ZOFR4TAB3 PO
[2018-08-13 22:21] LABS: INFLUENZA A AMPLIFICATION NEGATIVE (NEGATIVE); INFLUENZA B AMPLIFICATION NEGATIVE (NEGATIVE)
== END ==
LOC: M LAB REF 11:34
PROVIDERS: ATTEND Physician Assistant
DX: J11.1 Influenza due to unidentified influenza virus with other respiratory manifestations (principal)

== ENCOUNTER 2018-09-15 10:52 | Emergency (ER) | payer OTHER ==
[~2018-09-15] VITALS: Ht 175.3 cm; Wt 94.0 kg
[~2018-09-15 10:52] MED LIST changes: +HYDR-3715 PO; -NORCOTAB PO
[2018-09-15] MEDS ORDERED: BACLOFEN 10 MG TAB PO ONE (12:30)
[2018-09-15] MEDS ORDERED: KETOROLAC 60 MG/2 ML VIAL (J1885) IM ONE (12:30)
--- NOTE | 2018-09-15 13:02 | REP ---
CT cervical spine without contrast HISTORY: Neck pain COMPARISON: None There is no acute fracture or subluxation. There is no disc bulge or herniation. The spinal canal and neural foramina are patent. The intervertebral discs and vertebral bodies are normal in height. IMPRESSION: There is no acute fracture or subluxation. Electronically Signed by Tru Sexton MD 09/15/2018 12:53 P
--- NOTE | 2018-09-15 13:49 | REP ---
LEFT SHOULDER, THREE VIEWS: There is no evidence of an acute fracture, dislocation or intrinsic bone disease. IMPRESSION: No fracture or dislocation. Electronically Signed by Edward Hernandez MD 09/15/2018 04:37 P
[2018-09-15] MEDS ORDERED: KETO10TAB PO (14:32)
[2018-09-15] MEDS ORDERED: BACL10TA2 PO (14:32)
[2018-09-15 14:39] VITALS: BP 100/58
== END 2018-09-15 14:48 | disposition home or self-care (01) ==
LOC: M ED 10:52
DX: S16.1XXA Strain of muscle, fascia and tendon at neck level, initial encounter (principal); X50.9XXA Other and unspecified overexertion or strenuous movements or postures, initial encounter; Y92.89 Other specified places as the place of occurrence of the external cause; E11.9 Type 2 diabetes mellitus without complications; F41.9 Anxiety disorder, unspecified; M54.30 Sciatica, unspecified side; Z79.4 Long term (current) use of insulin; Z79.3 Long term (current) use of hormonal contraceptives; Z88.8 Allergy status to other drugs, medicaments and biological substances; Z88.0 Allergy status to penicillin
CPT/HCPCS: 72125; 73030; 96372; 99283; J1885

== ENCOUNTER 2019-06-21 22:45 | Emergency (ER) | payer OTHER, SELFPAY ==
[~2019-06-21] VITALS: Ht 175.3 cm; Wt 84.5 kg
[~2019-06-21 22:45] MED LIST changes: +BACL10TA2 PO; +KETO10TAB PO
[2019-06-21 23:17] LABS: BASO # 0.1 10^3/uL (0.0-0.2); BASO % 0.5 % (0.0-1.0); EOS # 0.1 10^3/uL (0.0-0.5); EOS % 1.2 % (0.0-3.0); HEMATOCRIT 48.2 % (36.0-47.0); HEMOGLOBIN 15.6 g/dl (12.0-15.5); LYMPH # 1.1 10^3/uL (1.5-5.0); LYMPH % 9.4 % (24.0-44.0); MEAN CORPUSCULAR HEMOGLOBIN 28.1 pg (27.0-33.0); MEAN CORPUSCULAR HGB CONC 32.4 g/dl (32.0-36.5); MEAN CORPUSCULAR VOLUME 86.7 fl (80.0-96.0); MONO # 0.6 10^3/uL (0.0-0.8); MONO % 4.9 % (0.0-5.0); NEUTROPHILS # 9.7 10^3/uL (1.5-8.5); NEUTROPHILS % 83.8 % (36.0-66.0); PLATELET COUNT, AUTOMATED 430 10^3/uL (150-450); RED BLOOD COUNT 5.56 10^6/uL (4.00-5.40); VENOUS BASE EXCESS 1.3 (-2.0-2.0); VENOUS O2 SATURATION 52.4 % (60.0-80.0); VENOUS PARTIAL PRESSURE CO2 41.7 mmHg (38.0-50.0); VENOUS PARTIAL PRESSURE O2 27.5 mmHg (30.0-50.0); VENOUS PH 7.413 UNITS (7.330-7.430); VENOUS STANDARD HCO3 24.3 MEQ/L; VENOUS TOTAL CO2 27.3 MEQ/L (24.0-28.0); WHITE BLOOD COUNT 11.5 10^3/uL (4.0-10.0)
[2019-06-21 23:37] LABS: HEMOGLOBIN A1c 11.2 %
[2019-06-21 23:59] LABS: INFLUENZA A AMPLIFICATION NEGATIVE (NEGATIVE); INFLUENZA B AMPLIFICATION NEGATIVE (NEGATIVE)
[2019-06-22 00:07] LABS: BLOOD UREA NITROGEN 13 MG/DL (7-18); CALCIUM LEVEL 8.7 MG/DL (8.5-10.1); CARBON DIOXIDE LEVEL 24 MEQ/L (21-32); CHLORIDE LEVEL 101 MEQ/L (98-107); GLOMERULAR FILTRATION RATE > 60.0 (>60); GLUCOSE, FASTING 291 MG/DL (70-100); POTASSIUM SERUM 3.9 MEQ/L (3.5-5.1); SODIUM LEVEL 136 MEQ/L (136-145)
[2019-06-22 00:49] LABS: OSMOLALITY SERUM 295 MOSM/KG (275-295)
[2019-06-22 00:52] LABS: ACETONE/KETONE 11.41 MG/DL (<2.81); ALT/SGPT 21 U/L (12-78); BILIRUBIN,DIRECT 0.4 MG/DL (0.0-0.2); BILIRUBIN,TOTAL 1.8 MG/DL (0.2-1.0); LIPASE 73 U/L (73-393); TOTAL PROTEIN 7.4 GM/DL (6.4-8.2)
[2019-06-22] MEDS ORDERED: ONDANSETRON 4MG/2ML VIAL (J2405) IV ONE (01:00)
[2019-06-22] MEDS ORDERED: KETOROLAC 30 MG/ML VIAL (J1885) IV ONE (01:00)
[2019-06-22] MEDS ORDERED: NS 1,000 ML IV ONE ×2 (01:00→03:30)
[2019-06-22 01:30] LABS: VENOUS BASE EXCESS -2.2 (-2.0-2.0); VENOUS HCO3 24.2 MEQ/L (23.0-27.0); VENOUS O2 SATURATION 77.3 % (60.0-80.0); VENOUS PARTIAL PRESSURE CO2 47.1 mmHg (38.0-50.0); VENOUS PARTIAL PRESSURE O2 44.8 mmHg (30.0-50.0); VENOUS PH 7.328 UNITS (7.330-7.430); VENOUS STANDARD HCO3 22.2 MEQ/L; VENOUS TOTAL CO2 25.6 MEQ/L (24.0-28.0)
[2019-06-22] MEDS ORDERED: ONDA4TAB6 PO (04:41)
[2019-06-22 04:42] VITALS: BP 104/55
== END 2019-06-22 04:59 | disposition home or self-care (01) ==
LOC: M ED 22:45
DX: K52.9 Noninfective gastroenteritis and colitis, unspecified (principal); E11.9 Type 2 diabetes mellitus without complications; Z88.0 Allergy status to penicillin; Z88.8 Allergy status to other drugs, medicaments and biological substances; Z79.4 Long term (current) use of insulin; Z79.3 Long term (current) use of hormonal contraceptives; Z79.899 Other long term (current) drug therapy
CPT/HCPCS: 80048; 80076; 81001; 82010; 82803; 83036; 83690; 83930; 85025; 87502; 93041; 96361; 96374; 96375; 99285; J1885; J2405

== ENCOUNTER → 2019-12-22 | Outpatient (REF) | payer OTHER ==
[~2019-12-22] MED LIST changes: +ACET-683 PO; +ONDA4TAB6 PO; +PANT40TA29 PO
[2019-12-23 16:40] LABS: CREATININE, URINE 91.5 MG/DL; MAU/CREAT RATIO 9.8 MCG/MG (0.0-30.0)
== END ==
LOC: M LAB REF 15:00
PROVIDERS: ATTEND Nurse Practitioner Family
DX: E10.65 Type 1 diabetes mellitus with hyperglycemia (principal)

== ENCOUNTER 2019-12-24 04:28 | Inpatient (IN) | payer OTHER ==
[2019-12-24] VITALS (7 sets, daily range): BP systolic 93–110; BP diastolic 50–82
[~2019-12-24] VITALS: Ht 175.3 cm; Wt 88.0 kg
[~2019-12-24 04:28] MED LIST changes: -ACET-683 PO; -PANT40TA29 PO
[2019-12-24 05:04] LABS: BASO # 0.1 10^3/uL (0.0-0.2); BASO % 0.6 % (0.0-1.0); EOS # 0.1 10^3/uL (0.0-0.5); EOS % 0.6 % (0.0-3.0); HEMATOCRIT 42.6 % (36.0-47.0); HEMOGLOBIN 14.4 g/dl (12.0-15.5); LYMPH # 1.4 10^3/uL (1.5-5.0); LYMPH % 8.6 % (24.0-44.0); MEAN CORPUSCULAR HEMOGLOBIN 29.2 pg (27.0-33.0); MEAN CORPUSCULAR HGB CONC 33.8 g/dl (32.0-36.5); MEAN CORPUSCULAR VOLUME 86.4 fl (80.0-96.0); MONO # 0.9 10^3/uL (0.0-0.8); MONO % 5.3 % (0.0-5.0); NEUTROPHILS % 84.4 % (36.0-66.0); PLATELET COUNT, AUTOMATED 360 10^3/uL (150-450); RED BLOOD COUNT 4.93 10^6/uL (4.00-5.40); WHITE BLOOD COUNT 16.6 10^3/uL (4.0-10.0)
[2019-12-24 05:06] LABS: VENOUS BASE EXCESS -7.9 (-2.0-2.0); VENOUS HCO3 16.4 MEQ/L (23.0-27.0); VENOUS O2 SATURATION 87.5 % (60.0-80.0); VENOUS PARTIAL PRESSURE CO2 30.6 mmHg (38.0-50.0); VENOUS PH 7.346 UNITS (7.330-7.430); VENOUS TOTAL CO2 17.3 MEQ/L (24.0-28.0)
[2019-12-24 05:24] LABS: OSMOLALITY SERUM 309 MOSM/KG (275-295)
[2019-12-24 05:26] LABS: HEMOGLOBIN A1c 11.7 %
[2019-12-24 05:30] LABS: ACETONE/KETONE > 46.00 MG/DL (<2.81); ALBUMIN 4.5 GM/DL (3.2-5.2); ALT/SGPT 24 U/L (12-78); BILIRUBIN,DIRECT 0.4 MG/DL (0.0-0.2); BILIRUBIN,TOTAL 2.1 MG/DL (0.2-1.0); LIPASE 52 U/L (73-393); TOTAL PROTEIN 7.7 GM/DL (6.4-8.2)
[2019-12-24] MEDS ORDERED: NS 1,000 ML IV ONE ×2 (05:30→06:15)
[2019-12-24] MEDS ORDERED: HumuLIN R (REGULAR) INSULIN (NovoLIN R) **100U/ML** PER UNIT IV ONE ×2 (05:30→06:15)
[2019-12-24] MEDS ORDERED: INSULIN IV RATE CHANGE DOCUMENTATION ML/HR XX SCH (06:15)
[2019-12-24] MEDS ORDERED: INSULIN REGULAR IN 0.9 % NACL 100 UNIT in IV 1 EA IV SCH ×4 (06:15→08:32)
[2019-12-24] MEDS ORDERED: ONDA4TAB6 PO (06:42)
[2019-12-24] MEDS ORDERED: ACET-683 PO (06:42)
[2019-12-24] MEDS ORDERED: ONDANSETRON 4MG/2ML VIAL IV ONE (07:45)
[2019-12-24 07:52] LABS: CK-MB VALUE MASS < 1.0 NG/ML (<3.6); CPK CREATINE PHOSPHOKINASE 152 U/L (26-192); MB/CK RELATIVE INDEX 0.66 (< OR =4); TROPONIN I < 0.02 NG/ML (< 0.10)
[2019-12-24] MEDS: KCL 20MEQ IN D5/0.45NS 1000ML 1,000 ML IV SCH ×2 (07:56→12:50)
--- NOTE | 2019-12-24 08:51 | HPEPDOC ---
[facility] Medical History & Physical Date of Admission Dec 24, 2019 Date of Service: Dec 24, 2019 Primary Care Physician: Marleny Garcia Attending Physician: GEOFF RAMESH MD History and Physical PRIMARY CARE PROVIDER: Marleny Garcia ATTENDING: Geoff Ramesh M.D. CHIEF COMPLAINT: Elevated blood sugars HISTORY OF PRESENT ILLNESS: This is a 24-year-old female with past medical history of type 1 diabetes mellitus, uncontrolled on insulin pump who presents complaining of elevated blood sugars. 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 The patient has been working and occasionally skipping meals and had an episode of hypoglycemia last week. The patient notes that her typical blood sugars and region. 200s to 300s and she has been following up with Dr. Garcia for possibly getting continuous glucose monitor in the near future. The patient notes that she woke up at 2:00 in the morning and noted that her blood sugars have been in the 300s and she was nauseous and vomiting, nonbilious, nonbloody vomiting. The patient changed pump site and at 4 AM, reche cked her blood sugar and it was in the 400s and prior to coming in, was as high as 500s. The patient had left-sided chest discomfort that was nonradiating and nonpleuritic in nature. It has since resolved. Her cardiac enzymes and EKG are within normal limits. The patient was started on insulin drip in the ED, received boluses of normal saline, followed by an D5 half-normal saline IV fluids, and admitted to the ICU. PAST MEDICAL HISTORY: As per HPI PAST SURGICAL HISTORY: SOCIAL HISTORY: Occasional cough. No tobacco or illicit drug use. FAMILY HISTORY: Noncontributory ALLERGIES: Please see below. REVIEW OF SYSTEMS: As per HPI, otherwise negative. HOME MEDICATIONS: Please see below. PHYSICAL EXAMINATION: Vitals: (see below) General: No acute distress, laying comfortably in bed. HEENT: Moist mucous membranes. Neck: No JVD or lymphadenopathy Cardiac: RRR, No murmurs Pulm: Clear to auscultation b/l. No wheezing, rhonchi Abd: NT/ND + BS Ext: No edema or cyanosis LABORATORY DATA: See below. IMAGING: CTA chest negative for PE or consolidation. MICROBIOLOGY: Respiratory panel negative; COVID 19 negative ASSESSMENT/PLAN: 1.Diabetic ketoacidosis; likely secondary to patient's poorly controlled diabetes, and hectic work schedule. No signs of infection at this time. No signs of ischemia. CTA chest negative for PE or consolidation. Respiratory panel ne gative Covid 19 negative. Blood culture sent. Patient has been placed on insulin drip, and will be transitioned to her insulin pump once her gap closes. She will need close follow-up with her director supplier quality as her A1c is greater than 11. Diabetic education. 2. Atypical chest pain resolved. Cardiac enzymes negative. EKG within normal limits. We'll monitor on telemetry. DVT Prophy: Lovenox subcutaneous Pt is expected to be hospitalized for >2midnights for the treatment of DKA. Vital Signs Vital Signs Date Time Temp Pulse Resp B/P (MAP) Pulse Ox O2 Delivery O2 Flow Rate FiO2 12/24/19 08:15 104 18 119/63 (81) 98 Room Air 12/24/19 04:28 98.4 Laboratory Data Labs 24H Laboratory Tests 2 12/24/19 04:50: Blood Gas Puncture Site UNKNOWN, Blood Gas Bicarbonate Standard 18.0, Venous Blood pH 7.346, Venous Blood Partial Pressure CO2 30.6L, Venous Blood Partial Pressure O2 54.0H, Venous Blood Total Carbon Dioxide 17.3L, Venous Blood HCO3 16.4L, Venous Blood Oxygen Saturation 87.5H, Venous Blood Base Excess -7.9L 12/24/19 04:51: Bedside Glucose (Misc Panel) 462H 12/24/19 04:52: Estimated Mean Plasma Glucose 289H, Hemoglobin A1c 11.7, Osmolality 309H, Total Bilirubin 2.1H, Direct Bilirubin 0.4H, Aspartate Amino Transf (AST/SGOT) 17, A lanine Aminotransferase (ALT/SGPT) 24, Alkaline Phosphatase 98, Total Creatine Kinase 152, Creatine Kinase MB < 1.0, Creatine Kinase MB Relative Index 0.66, Troponin I < 0.02, Total Protein 7.7, Albumin 4.5, Albumin/Globulin Ratio 1.4, Lipase 52L, B-Hydroxybutyrate > 46.00H 12/24/19 04:53: Immature Granulocyte % (Auto) 0.5, Neutrophils (%) (Auto) 84.4H, Lymphocytes (%) (Auto) 8.6L, Monocytes (%) (Auto) 5.3H, Eosinophils (%) (Auto) 0.6, Basophils (%) (Auto) 0.6, Neutrophils # (Auto) 14.0H, Lymphocytes # (Auto) 1.4L, Monocytes # (Auto) 0.9H, Eosinophils # (Auto) 0.1, Basophils # (Auto) 0.1, Nucleated Red Blood Cells % (auto) 0.0 12/24/19 04:57: POC Glucose (Misc Panel) 515*H, POC Sodium (Misc Panel) 132L, POC Potassium (Misc Panel) 4.4, POC Chloride (Misc Panel) 98, POC Total CO2 (Misc Panel) 18.0L, POC Blood Urea Nitrogen (Misc Panel 16, POC Ionized Calcium (Misc Panel) 4.6, POC Creatinine (Misc Panel) 0.8, POC Hematocrit (Misc Panel) 45.0 12/24/19 06:02: Bedside Glucose (Misc Panel) 401H 12/24/19 06:34: Urine Color STRAW, Urine Appearance CLEAR, Urine pH 6.0, Urine Specific [place] 1.022, Urine Protein NEGATIVE, Urine Glucose (UA) 3+H, Urine Ketones 2+H, Urine Blood NEGATIVE, Urine Nitrite NEGATIVE, Urine Bilirubin NEGATIVE, Urine Urobilinogen 0.2, Urine Leukocyte Esterase NEGATIVE, Urine WBC (Auto) 0, Urine RBC (Auto) 1, Urine Hyaline Casts (Auto) 0, Urine Bacteria (Auto) 1+H, Urine Squamous Epithelial Cells 1, Urine Mucus (Auto) SMALL, Urine Sperm (Auto) 12/24/19 07:06: Bedside Glucose (Misc Panel) 235H 12/24/19 07:39: Bedside Glucose (Misc Panel) 203H 12/24/19 08:12: Bedside Glucose (Misc Panel) 172H CBC/BMP Laboratory Tests 12/24/19 04:53 Home Medications Scheduled Insulin Human Lispro (Humalog) 1 Units/0.01 Ml Inj, 1 UNITS SC INSULIN PUMP MAX DAILY DOSE 70 UNITS Scheduled PRN Acetaminophen (Acetaminophen) 500 Mg Tablet, 1,000 MG PO Q6H PRN for PAIN Ibuprofen (Ibuprofen) 800 Mg Tab, 800 MG PO Q6H PRN for PAIN Ondansetron (Ondansetron Odt) 4 Mg Tab.rapdis, 4 MG PO Q6-8HP PRN for nausea/vomiting Miscellaneous Medications Levonorgestrel (Mirena) 20 Mcg/24 Hr Iud, 20 MCG IU Allergies Coded Allergies: Penicillins (Verified Adverse Reaction, Mild, vomiting., 06/21/19) amoxicillin (Verified Adverse Reaction, Mild, vomiting, 06/21/19) clavulanic acid (Verified Adverse Reaction, Mild, vomiting, 06/21/19) A-FIB/CHADSVASC A-FIB History Current/History of A-Fib/PAF?: No GEOFF RAMESH MD Dec 24, 2019 08:51
[2019-12-24 09:15] LABS: BASO % 0.3 % (0.0-1.0); EOS % 0.1 % (0.0-3.0); HEMATOCRIT 38.3 % (36.0-47.0); HEMOGLOBIN 12.8 g/dl (12.0-15.5); LYMPH # 0.7 10^3/uL (1.5-5.0); LYMPH % 4.9 % (24.0-44.0); MEAN CORPUSCULAR HEMOGLOBIN 29.1 pg (27.0-33.0); MEAN CORPUSCULAR HGB CONC 33.4 g/dl (32.0-36.5); MONO # 1.1 10^3/uL (0.0-0.8); MONO % 7.3 % (0.0-5.0); NEUTROPHILS # 12.9 10^3/uL (1.5-8.5); NEUTROPHILS % 87.1 % (36.0-66.0); PLATELET COUNT, AUTOMATED 294 10^3/uL (150-450); WHITE BLOOD COUNT 14.8 10^3/uL (4.0-10.0)
[2019-12-24] MEDS: ENOXAPARIN 40MG/0.4ML SYRINGE (J1650 PER 10MG) SC SCH (09:32)
[2019-12-24 10:11] LABS: BLOOD UREA NITROGEN 14 MG/DL (7-18); CALCIUM LEVEL 8.7 MG/DL (8.5-10.1); CARBON DIOXIDE LEVEL 20 MEQ/L (21-32); CHLORIDE LEVEL 110 MEQ/L (98-107); CREATININE FOR GFR 0.84 MG/DL (0.55-1.30); GLOMERULAR FILTRATION RATE > 60.0 (>60); GLUCOSE, FASTING 175 MG/DL (70-100); POTASSIUM SERUM 4.2 MEQ/L (3.5-5.1); SODIUM LEVEL 139 MEQ/L (136-145); TROPONIN I < 0.02 NG/ML (< 0.10)
[2019-12-24] MEDS ORDERED: ISOVUE-370 76% 100ML VIAL As Ordered ONE (10:12)
[2019-12-24] MEDS: INSULIN IV RATE CHANGE DOCUMENTATION ML/HR XX SCH ×7 (11:02→23:05)
[2019-12-24 11:08] LABS: HCG, SERUM QUALITATIVE NEGATIVE (NEGATIVE)
[2019-12-24 11:17] LABS: HCG, SERUM QUANTITATIVE < 1.0 MIU/ML
[2019-12-24 11:49] LABS: BLOOD UREA NITROGEN 12 MG/DL (7-18); CALCIUM LEVEL 8.4 MG/DL (8.5-10.1); CARBON DIOXIDE LEVEL 23 MEQ/L (21-32); CHLORIDE LEVEL 109 MEQ/L (98-107); GLOMERULAR FILTRATION RATE > 60.0 (>60); GLUCOSE, FASTING 183 MG/DL (70-100); POTASSIUM SERUM 4.2 MEQ/L (3.5-5.1); SODIUM LEVEL 138 MEQ/L (136-145); TROPONIN I < 0.02 NG/ML (< 0.10)
[2019-12-24 13:07] LABS: VENOUS HCO3 20.7 MEQ/L (23.0-27.0); VENOUS O2 SATURATION 97.7 % (60.0-80.0); VENOUS PARTIAL PRESSURE CO2 36.7 mmHg (38.0-50.0); VENOUS PARTIAL PRESSURE O2 100.2 mmHg (30.0-50.0); VENOUS SITE NOT GIVEN; VENOUS STANDARD HCO3 21.2 MEQ/L; VENOUS TOTAL CO2 21.9 MEQ/L (24.0-28.0)
[2019-12-24 13:37] LABS: BLOOD UREA NITROGEN 11 MG/DL (7-18); CALCIUM LEVEL 8.4 MG/DL (8.5-10.1); CARBON DIOXIDE LEVEL 24 MEQ/L (21-32); CHLORIDE LEVEL 109 MEQ/L (98-107); CREATININE FOR GFR 0.88 MG/DL (0.55-1.30); GLOMERULAR FILTRATION RATE > 60.0 (>60); GLUCOSE, FASTING 168 MG/DL (70-100); POTASSIUM SERUM 3.8 MEQ/L (3.5-5.1); SODIUM LEVEL 138 MEQ/L (136-145)
[2019-12-24] MEDS ORDERED: ENTER DRUG NAME HERE (PATIENT'S OWN MED) SC SCH (14:45)
[2019-12-24] MEDS ORDERED: HumaLOG INSULIN (NovoLOG) PER UNIT SC ONE (14:45)
[2019-12-24] MEDS: PANTOPRAZOLE 40MG VIAL (C9113 PER 1) IV SCH (14:55)
[2019-12-24] MEDS ORDERED: CEPACOL LOZENGE PO PRN (15:00)
[2019-12-24] MEDS ORDERED: HumaLOG INSULIN (NovoLOG) PER UNIT XX ONE (15:00)
[2019-12-24] MEDS: NS 1,000 ML IV SCH ×2 (15:34→23:05)
--- NOTE | 2019-12-24 16:06 | ECGEPIP ---
[facility] - ED Test Date: 2019-12-24 Pat Name: ABDOULAYE DAMICO Department: Room: - Gender: Female Parts Person: Mary BAIRD : 1995 Requested By: OZ GENAO Order Number: [id number] Reading MD: Rula Pina Measurements Intervals [place] Rate: 97 P: 64 VA: 141 QRS: 82 QRSD: 102 T: 23 QT: 363 QTc: 463 Interpretive Statements SINUS RHYTHM NONSPECIFIC ST T WAVE CHANGES CW 07/27/[address] T WAVE CHANGES Electronically Signed on 12-24-2019 16:05:50 EDT by Rula Pina
[2019-12-24 17:38] LABS: BLOOD UREA NITROGEN 10 MG/DL (7-18); CALCIUM LEVEL 7.7 MG/DL (8.5-10.1); CARBON DIOXIDE LEVEL 23 MEQ/L (21-32); CHLORIDE LEVEL 108 MEQ/L (98-107); CREATININE FOR GFR 0.74 MG/DL (0.55-1.30); GLOMERULAR FILTRATION RATE > 60.0 (>60); GLUCOSE, FASTING 204 MG/DL (70-100); POTASSIUM SERUM 4.1 MEQ/L (3.5-5.1); SODIUM LEVEL 140 MEQ/L (136-145)
[2019-12-24] MEDS ORDERED: ACETAMINOPHEN 650MG ER TAB (TYLENOL ARTHRITIS) PO PRN (19:45)
[2019-12-24 21:04] LABS: VENOUS BASE EXCESS -10.1 (-2.0-2.0); VENOUS HCO3 15.6 MEQ/L (23.0-27.0); VENOUS O2 SATURATION 95.3 % (60.0-80.0); VENOUS PARTIAL PRESSURE O2 80.8 mmHg (30.0-50.0); VENOUS PH 7.279 UNITS (7.330-7.430); VENOUS STANDARD HCO3 16.5 MEQ/L; VENOUS TOTAL CO2 16.6 MEQ/L (24.0-28.0)
[2019-12-24 21:49] LABS: BLOOD UREA NITROGEN 13 MG/DL (7-18); CALCIUM LEVEL 8.2 MG/DL (8.5-10.1); CARBON DIOXIDE LEVEL 18 MEQ/L (21-32); CHLORIDE LEVEL 102 MEQ/L (98-107); CREATININE FOR GFR 1.03 MG/DL (0.55-1.30); GLOMERULAR FILTRATION RATE > 60.0 (>60); GLUCOSE, FASTING 564 MG/DL (70-100); POTASSIUM SERUM 4.6 MEQ/L (3.5-5.1); SODIUM LEVEL 135 MEQ/L (136-145); THYROID STIMULATING HORMONE 0.282 uIU/ML (0.358-3.740)
[2019-12-24] MEDS: INSULIN REGULAR IN 0.9 % NACL 100 UNIT in IV 1 EA IV SCH ×2 (21:58)
[2019-12-24] MEDS: ONDANSETRON 4MG/2ML VIAL IV PRN (22:27)
[2019-12-25] VITALS (11 sets, daily range): BP systolic 96–156; BP diastolic 50–81
[2019-12-25] MEDS: INSULIN IV RATE CHANGE DOCUMENTATION ML/HR XX SCH ×13 (00:23→20:58)
[2019-12-25 01:09] LABS: VENOUS BASE EXCESS -6.8 (-2.0-2.0); VENOUS O2 SATURATION 95.4 % (60.0-80.0); VENOUS PARTIAL PRESSURE CO2 33.7 mmHg (38.0-50.0); VENOUS PARTIAL PRESSURE O2 78.4 mmHg (30.0-50.0); VENOUS PH 7.345 UNITS (7.330-7.430)
[2019-12-25 01:33] LABS: OSMOLALITY SERUM 298 MOSM/KG (275-295)
[2019-12-25 01:41] LABS: BLOOD UREA NITROGEN 12 MG/DL (7-18); CALCIUM LEVEL 8.4 MG/DL (8.5-10.1); CARBON DIOXIDE LEVEL 21 MEQ/L (21-32); CHLORIDE LEVEL 110 MEQ/L (98-107); CREATININE FOR GFR 0.89 MG/DL (0.55-1.30); FREE T4 0.92 NG/DL (0.76-1.46); GLOMERULAR FILTRATION RATE > 60.0 (>60); GLUCOSE, FASTING 234 MG/DL (70-100); PHOSPHORUS LEVEL 1.6 MG/DL (2.5-4.9); POTASSIUM SERUM 3.7 MEQ/L (3.5-5.1); SODIUM LEVEL 140 MEQ/L (136-145)
[2019-12-25] MEDS: D5W/0.45% SODIUM CHLORIDE 1,000 ML IV SCH ×3 (02:13→07:05)
[2019-12-25 02:29] LABS: FREE T3 1.5 PG/ML (2.2-4.0)
[2019-12-25 05:17] LABS: VENOUS BASE EXCESS -3.5 (-2.0-2.0); VENOUS HCO3 21.6 MEQ/L (23.0-27.0); VENOUS O2 SATURATION 99.2 % (60.0-80.0); VENOUS PARTIAL PRESSURE O2 159.6 mmHg (30.0-50.0); VENOUS PH 7.361 UNITS (7.330-7.430); VENOUS STANDARD HCO3 21.6 MEQ/L; VENOUS TOTAL CO2 22.8 MEQ/L (24.0-28.0)
[2019-12-25 05:48] LABS: OSMOLALITY SERUM 293 MOSM/KG (275-295)
[2019-12-25 05:50] LABS: BLOOD UREA NITROGEN 11 MG/DL (7-18); CALCIUM LEVEL 7.9 MG/DL (8.5-10.1); CARBON DIOXIDE LEVEL 24 MEQ/L (21-32); CHLORIDE LEVEL 110 MEQ/L (98-107); CREATININE FOR GFR 0.76 MG/DL (0.55-1.30); GLOMERULAR FILTRATION RATE > 60.0 (>60); GLUCOSE, FASTING 174 MG/DL (70-100); MAGNESIUM LEVEL 1.7 MG/DL (1.8-2.4); PHOSPHORUS LEVEL 3.2 MG/DL (2.5-4.9); POTASSIUM SERUM 3.8 MEQ/L (3.5-5.1); SODIUM LEVEL 142 MEQ/L (136-145)
[2019-12-25] MEDS ORDERED: MAG SULF 1GM/100ML (MAG RUN) 1 GM in IV 1 EA IV ONE ×2 (08:00→17:00)
--- NOTE | 2019-12-25 08:05 | REP ---
AP PORTABLE CHEST: 12/24/2019. CLINICAL HISTORY: Chest pain. COMPARISON: AP portable chest 04/25/2016, PA/lateral 09/14/2015. FINDINGS: The lung grijalva are well inflated. There is no pleural effusion or lateral pleural thickening. No apical scarring. I see no dense consolidation or parenchymal mass. No visible nodules. The heart, mediastinal and hilar contours are normal. The aorta and airway are intact. There is no pneumothorax or pneumomediastinum. Bony thorax shows no acute finding. IMPRESSION: 1. No acute cardiopulmonary change. Stable appearance of the chest from 2016. Electronically Signed by Hardik Phelps MD 12/25/2019 08:46 A
[2019-12-25] MEDS: ENOXAPARIN 40MG/0.4ML SYRINGE (J1650 PER 10MG) SC SCH (08:08)
[2019-12-25] MEDS: INSULIN REGULAR IN 0.9 % NACL 100 UNIT in IV 1 EA IV SCH ×4 (08:09→18:00)
--- NOTE | 2019-12-25 08:27 | REP ---
CT ANGIOGRAM CHEST: 12/24/2019. CLINICAL HISTORY: Chest pain, dyspnea. Rule out pulmonary embolism. TECHNIQUE: The patient received bolus of 75 mL Isovue [address] pulmonary angiogram protocol. Standard and MIP reformats and coronal and sagittal reconstructions provided. COMPARISON: Portable chest, 12/24/2019. FINDINGS: The lung grijalva are well inflated. There is no infiltrate, effusion, atelectasis, or mass. No pulmonary nodule, pleural thickening, pneumothorax, or pneumomediastinum. No free air under the diaphragm. The heart is not enlarged, and there is no pericardial thickening or effusion. No hiatal hernia. The aorta is without aneurysm or dissection. There is no pathologic-sized mediastinal, hilar, axillary, or supraclavicular adenopathy. Tracheal airway is unremarkable. There is no bronchiectatic change. Right and left pulmonary arteries and the mediastinum are without filling defects. The lobar, segmental, and subsegmental pulmonary arteries in each lung are without filling defect or vessel cutoff. The upper abdomen shows no gross hepatomegaly, focal lesion, biliary dilatation or ascites. Adrenal glands normal. Upper poles kidneys intact. Only a portion of the gallbladder and pancreas are seen and unremarkable. Loops of bowel also seen in limited fashion but unremarkable. Bone windows show the sternum, manubrium, medial clavicles, visible scapulae, and humeral heads, ribs and thoracic spine without any fracture or acute finding. IMPRESSION: 1. Normal CT angiogram chest. There is no CT evidence for pulmonary embolism. No pneumothorax, infiltrate or effusion. Bone windows show no fracture or focal lesion in the chest. 2. No cardiomegaly, edema, effusion, or upper abdominal finding. Electronically Signed by Hardik Phelps MD 12/25/2019 08:47 A
[2019-12-25 09:14] LABS: VENOUS PH 7.414 UNITS (7.330-7.430)
[2019-12-25 09:15] LABS: VENOUS BASE EXCESS -2.1 (-2.0-2.0); VENOUS O2 SATURATION 99.1 % (60.0-80.0); VENOUS PARTIAL PRESSURE CO2 35.1 mmHg (38.0-50.0); VENOUS PARTIAL PRESSURE O2 148.3 mmHg (30.0-50.0); VENOUS STANDARD HCO3 22.8 MEQ/L
[2019-12-25 09:21] LABS: BASO # 0.1 10^3/uL (0.0-0.2); BASO % 0.7 % (0.0-1.0); EOS # 0.2 10^3/uL (0.0-0.5); EOS % 2.4 % (0.0-3.0); HEMOGLOBIN 11.5 g/dl (12.0-15.5); LYMPH # 2.7 10^3/uL (1.5-5.0); LYMPH % 31.4 % (24.0-44.0); MEAN CORPUSCULAR HGB CONC 32.9 g/dl (32.0-36.5); MEAN CORPUSCULAR VOLUME 88.4 fl (80.0-96.0); MONO # 0.5 10^3/uL (0.0-0.8); NEUTROPHILS % 59.1 % (36.0-66.0); PLATELET COUNT, AUTOMATED 295 10^3/uL (150-450); RED BLOOD COUNT 3.96 10^6/uL (4.00-5.40); WHITE BLOOD COUNT 8.5 10^3/uL (4.0-10.0)
[2019-12-25 09:41] LABS: OSMOLALITY SERUM 285 MOSM/KG (275-295)
[2019-12-25 09:42] LABS: BLOOD UREA NITROGEN 10 MG/DL (7-18); CALCIUM LEVEL 7.9 MG/DL (8.5-10.1); CARBON DIOXIDE LEVEL 25 MEQ/L (21-32); CHLORIDE LEVEL 111 MEQ/L (98-107); CREATININE FOR GFR 0.71 MG/DL (0.55-1.30); GLOMERULAR FILTRATION RATE > 60.0 (>60); GLUCOSE, FASTING 132 MG/DL (70-100); PHOSPHORUS LEVEL 3.1 MG/DL (2.5-4.9); POTASSIUM SERUM 3.5 MEQ/L (3.5-5.1); SODIUM LEVEL 143 MEQ/L (136-145)
--- NOTE | 2019-12-25 10:57 | IPNPDOC ---
Text Note Date of Service The patient was seen on 12/25/19. NOTE Subjective: Patient had a panic attack overnight. Pt went back into DKA last night. Denies CP/palpitations/SOB. Concern for malfunctioning insulin pump. PHYSICAL EXAMINATION: Vitals: (see below) General: No acute distress, laying comfortably in bed. HEENT: Moist mucous membranes. Neck: No JVD or lymphadenopathy Cardiac: RRR, No murmurs Pulm: Clear to auscultation b/l. No wheezing, rhonchi Abd: NT/ND + BS Ext: No edema or cyanosis LABORATORY DATA: See below. IMAGING: CTA chest negative for PE or consolidation. MICROBIOLOGY: Respiratory panel negative; COVID 19 negative ASSESSMENT/PLAN: 1.Diabetic ketoacidosis; likely secondary to patient's poorly controlled diabetes, and hectic work schedule. No signs of infection at this time. No signs of ischemia. CTA chest negative for PE or consolidation. Respiratory panel negative Covid 19 negative. Blood culture sent. Patient has been placed on insulin drip, and will be transitioned to her insulin pump once her gap closes. 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 Diabetic education. Concern for insulin pump malfunction; will attempt to contact Dr. Garcia's office, although they may need to be contacted tomorrow as their office is closed. Pt is back on insulin pump after being transitioned to her insulin pump last night. 2. Atypical chest pain resolved. Cardiac enzymes negative. EKG within normal limits. We'll monitor on telemetry. DVT Prophy: Lovenox subcutaneous Update: At 3:15pm nurse notified me of pt tachycardic, hyperventilating, and feeling anxious. Pt states she had reproducible chest discomfort. No abd pain. + Nausea. Had eaten 1 hr ago. Stat CXR noted, EKG wnl. Stat labs ordered including abg. Pt initially tachycardic in the 150s, sinus tach, however, was breathing easier with some deep breaths, and was no longer tachycardic. Patient received 1 dose of Benadryl and Ativan. The patient does not have any wheezing, crackles, or stridor on exam. No abdominal tenderness. No edema of the lower extremities. I have discussed with Dr. Gil, who has examined the patient, also believes the patient had a panic attack, and recommends repeating the ABG, as it does not correlate with her O2 saturation pulse ox. The patient's currently feeling better, she states her chest and throat discomfort has improved. She is no longer tachycardic, and her vitals are otherwise stable. Patient has been placed nothing by mouth, with continued insulin drip, and IV fluids are started. We'll monitor closely. Update: 5:30pm Discussed with patient's mother who notes she gets extremely anxious if she things her BS are elevated, and typically needs to help calm her down. Labs reviewed; D51/2 NS restarted. Continued on insulin drip. serial labs, repeat lactic acid. No signs of infection noted. Bld cx negative. No fevers or leukocytosis. Update 6:20pm: Pt re-evaluated Feels much better. No CP/SOB/palpitations. Breathing comfortably. No N/V/Abd pain. VSS. RRR Lungs CTA b/l. Abd Soft NT/ND +BS. Ext: No edema/cyanosis. VS,Fishbone, I+O VS, Fishbone, I+O Laboratory Tests 12/24/19 11:08 12/24/19 12:59 12/24/19 17:10 12/24/19 20:58 12/25/19 01:03 12/25/19 05:05 12/25/19 09:04 Vital Signs Date Time Temp Pulse Resp B/P (MAP) Pulse Ox O2 Delivery O2 Flow Rate FiO2 12/25/19 08:00 98.1 85 16 103/57 (72) 97 Room Air I&O- Last 24 Hours up to 6 AM 12/25/19 06:00 Intake Total 5144.0 ml Output Total 3700 ml Balance 1444.0 ml MARLIN RAMESH MD Dec 25, 2019 10:57
--- NOTE | 2019-12-25 12:22 | ECGEPIP ---
[facility] Test Date: 2019-12-24 Pat Name: ABDOULAYE DAMICO Department: Room: [place] [address] Gender: Female Grizzly Worker: EDMUND : 1995 Requested By: MARLIN RAMESH Order Number: [id number] Reading MD: Elise Russ Measurements Intervals [place] Rate: 114 P: 57 ME: 142 QRS: 79 QRSD: 89 T: 9 QT: 347 QTc: 479 Interpretive Statements SINUS TACHYCARDIA RATE FASTER POSSIBLE LEFT ATRIAL ENLARGEMENT PROLONG QTC INFERIOR ST & T-WAVE ABNORMALITY MORE MARKED C/W 12/24/19 Electronically Signed on 12-25-2019 12:22:45 EDT by Elise Russ
[2019-12-25] MEDS: PANTOPRAZOLE 40MG VIAL (C9113 PER 1) IV SCH (15:00)
[2019-12-25] MEDS ORDERED: ALPRAZolam 0.25 MG TAB PO PRN (15:15)
[2019-12-25] MEDS ORDERED: diphenhydrAMINE 50MG/ML VIAL (J1200) IV STA (15:21)
[2019-12-25] MEDS ORDERED: diphenhydrAMINE 50MG/ML VIAL (J1200) As Ordered ONE (15:22)
[2019-12-25] MEDS ORDERED: LORazepam 2 MG/ML VIAL IV STA (15:37)
[2019-12-25] MEDS ORDERED: LORazepam 2 MG/ML VIAL As Ordered ONE (15:39)
[2019-12-25 15:44] LABS: ABG BASE EXCESS -4.6 (-2.0-2.0); ABG HCO3 16.3 MEQ/L (22.0-26.0); ABG PARTIAL PRESSURE CO2 20.9 mmHg (35.0-45.0); ABG PARTIAL PRESSURE O2 36.3 mmHg (75.0-100.0); ABG STANDARD HCO3 20.3 MEQ/L (22.0-26.0); ABG pH (ARTERIAL) 7.511 UNITS (7.350-7.450)
[2019-12-25 16:03] LABS: HEMATOCRIT 36.8 % (36.0-47.0); HEMOGLOBIN 12.4 g/dl (12.0-15.5); MEAN CORPUSCULAR HEMOGLOBIN 29.2 pg (27.0-33.0); MEAN CORPUSCULAR HGB CONC 33.7 g/dl (32.0-36.5); MEAN CORPUSCULAR VOLUME 86.8 fl (80.0-96.0); PLATELET COUNT, AUTOMATED 341 10^3/uL (150-450); RED BLOOD COUNT 4.24 10^6/uL (4.00-5.40); WHITE BLOOD COUNT 7.2 10^3/uL (4.0-10.0)
[2019-12-25 16:38] LABS: ALBUMIN 3.4 GM/DL (3.2-5.2); ALT/SGPT 17 U/L (12-78); BILIRUBIN,TOTAL 1.5 MG/DL (0.2-1.0); BLOOD UREA NITROGEN 8 MG/DL (7-18); CALCIUM LEVEL 8.1 MG/DL (8.5-10.1); CARBON DIOXIDE LEVEL 17 MEQ/L (21-32); CHLORIDE LEVEL 108 MEQ/L (98-107); CREATININE FOR GFR 0.84 MG/DL (0.55-1.30); GLOMERULAR FILTRATION RATE > 60.0 (>60); GLUCOSE, FASTING 272 MG/DL (70-100); MAGNESIUM LEVEL 1.7 MG/DL (1.8-2.4); POTASSIUM SERUM 3.6 MEQ/L (3.5-5.1); SODIUM LEVEL 138 MEQ/L (136-145); TOTAL PROTEIN 6.5 GM/DL (6.4-8.2); TROPONIN I < 0.02 NG/ML (< 0.10)
[2019-12-25] MEDS ORDERED: D5W/0.45% SODIUM CHLORIDE 1,000 ML IV SCH (17:00)
[2019-12-25 17:09] LABS: LIPASE 80 U/L (73-393)
[2019-12-25 17:31] LABS: ABG BASE EXCESS -9.2 (-2.0-2.0); ABG HCO3 15.5 MEQ/L (22.0-26.0); ABG O2 SATURATION 99.4 % (95.0-99.0); ABG PARTIAL PRESSURE CO2 30.1 mmHg (35.0-45.0); ABG STANDARD HCO3 17.2 MEQ/L (22.0-26.0); ABG TOTAL CO2 16.4 MEQ/L (22.0-29.0)
--- NOTE | 2019-12-25 17:56 | ECGEPIP ---
[facility] Test Date: 2019-12-25 Pat Name: ABDOULAYE DAMICO Department: Room: [place] [address] Gender: Female Institutional Research Director: JEVON : 1995 Requested By: MARLIN RAMESH Order Number: [id number] Reading MD: Elise Russ Measurements Intervals [place] Rate: 97 P: 51 ID: 134 QRS: 69 QRSD: 101 T: 29 QT: 373 QTc: 474 Interpretive Statements SINUS RHYTHM LAE INF STTW ABN AND LAT PROLONG QTC RATE SLOWER C/W 12/24/19 Electronically Signed on 12-25-2019 17:56:13 EDT by Elise Russ
[2019-12-25 19:07] LABS: BLOOD UREA NITROGEN 9 MG/DL (7-18); CALCIUM LEVEL 7.7 MG/DL (8.5-10.1); CARBON DIOXIDE LEVEL 23 MEQ/L (21-32); CHLORIDE LEVEL 110 MEQ/L (98-107); CREATININE FOR GFR 0.73 MG/DL (0.55-1.30); GLOMERULAR FILTRATION RATE > 60.0 (>60); GLUCOSE, FASTING 221 MG/DL (70-100); POTASSIUM SERUM 3.5 MEQ/L (3.5-5.1); SODIUM LEVEL 141 MEQ/L (136-145)
[2019-12-25 20:10] LABS: VENOUS BASE EXCESS -1.4 (-2.0-2.0); VENOUS HCO3 22.8 MEQ/L (23.0-27.0); VENOUS O2 SATURATION 99.3 % (60.0-80.0); VENOUS PARTIAL PRESSURE CO2 36.7 mmHg (38.0-50.0); VENOUS PARTIAL PRESSURE O2 165.4 mmHg (30.0-50.0); VENOUS PH 7.411 UNITS (7.330-7.430); VENOUS STANDARD HCO3 23.3 MEQ/L; VENOUS TOTAL CO2 23.9 MEQ/L (24.0-28.0)
[2019-12-25 20:38] LABS: BLOOD UREA NITROGEN 9 MG/DL (7-18); CALCIUM LEVEL 7.8 MG/DL (8.5-10.1); CARBON DIOXIDE LEVEL 24 MEQ/L (21-32); CHLORIDE LEVEL 111 MEQ/L (98-107); CREATININE FOR GFR 0.72 MG/DL (0.55-1.30); GLOMERULAR FILTRATION RATE > 60.0 (>60); GLUCOSE, FASTING 169 MG/DL (70-100); POTASSIUM SERUM 3.4 MEQ/L (3.5-5.1); SODIUM LEVEL 141 MEQ/L (136-145)
--- NOTE | 2019-12-25 20:47 | CR ---
DATE OF CONSULTATION: 12/25/2019 REASON FOR CONSULTATION: Abnormal blood gas. HISTORY OF PRESENT ILLNESS: Ms. Sanchez is a 24-year-old female admitted with diabetic ketoacidosis (DKA). I was asked by Dr. Duncan to evaluate her for discrepancy in her blood gas. Apparently, she was complaining as though her throat was closing. She was tachypneic and tachycardiac. Oxygen saturation on room air on the bedside monitor read 100%. Blood gas done at that time showed a pH of 7.51, pCO2 of 20.9 and pO2 of 36 with saturation of 80%. Chest x-ray done at that time shows marginally inspiratory effort. Somewhat of a lordotic film. No acute abnormalities. She was given Ativan and is now sleeping at the time of my evaluation. ALLERGIES LISTED: PENICILLIN, AMOXICILLIN and CLAVULANIC ACID. CURRENT MEDICATIONS IN THE HOSPITAL: Protonix, Lovenox, Cepacol lozenges, Rozerem, her insulin, Zofran and Xanax. PAST MEDICAL HISTORY: Significant for her know diabetic ketoacidosis (DKA) with a nonfunctional insulin pump. Surgically, she has had a section. SOCIAL HISTORY: Lives at home with supportive family. No tobacco or alcohol. FAMILY HISTORY: Noncontributory. REVIEW OF SYSTEMS: As per history of present illness. CONSTITUTIONAL: Negative currently for any fever, chills or sweats. HEENT: No double vision. PULMONARY : As per history of present illness. CARDIAC: Unremarkable for angina. GASTROINTESTINAL (GI): Significant for some nausea. GENITOURINARY (): Unremarkable NEUROLOGIC: No seizures or strokes. ENDOCRINE: Significant for diabetes. HEMATOLOGIC: Unremarkable for chronic anemia. DERMATOLOGIC: Unremarkable any rashes or psoriasis. MUSCULOSKELETAL: Negative for arthralgias or myalgias PSYCHIATRIC: Unremarkable except for some intermittent anxiety. PHYSICAL EXAMINATION: Currently reveals a young female, resting comfortable. Blood pressure 123/60, heart rate is 82 and regular with sinus mechanism. Respiratory rate 12 to 14 and unlabored. HEENT: Otherwise normocephalic, atraumatic, Pupils do react. NECK: Supple. Trachea is midline. CHEST: Clear to auscultation and percussion. Chest is symmetric. No significant focal adventitious sounds identified. Tactile fremitus palpable throughout. CARDIAC EXAM: Regular with no rub or gallop. Peripheral pulses are palpable. No evidence of edema. ABDOMEN: Soft, nontender with active bowel sounds. No convincing organomegaly or mass. EXTREMITIES: No cyanosis or clubbing. NEUROLOGIC: She is sedated. Repeat blood gas is current pending. IMPRESSION: 1. Abnormal arterial blood gas suspect spurious values. 2. Diabetic ketoacidosis (DKA). 3. Anxiety. RECOMMENDATIONS: Long discussion was had with Dr. Duncan concerning her current status. From the description event, it sounds as though she was having an anxiety/panic attack. She responded very nicely to Ativan. She does take Xanax regularly. Her blood gas is being repeated, as I believe that the sample taken was artifactually abnormal. The respiratory therapist has trouble getting the gas. Certainly, the respiratory alkalosis would fit with her anxiety reaction, but with a measured oxygen saturation on the bedside monitor of 100%, the 80% value on the blood gas would not fit with that unless it was a venous gas and that is certainly the more likely candidate. At this point, I am for agreement with using anxiolytics as needed, as she awaits her new insulin pump. She will be followed as needed while she is here in the hospital. Further recommendations will be made in the progress record as new information becomes available.
[2019-12-25] MEDS ORDERED: KCL 40MEQ IN D5/0.45%NACL 1000 ML As Ordered ONE (21:01)
[2019-12-25] MEDS: KCL 40MEQ IN D5/0.45NS 1000ML 1,000 ML IV SCH (21:12)
[2019-12-25 22:39] LABS: BLOOD UREA NITROGEN 8 MG/DL (7-18); CALCIUM LEVEL 7.5 MG/DL (8.5-10.1); CARBON DIOXIDE LEVEL 25 MEQ/L (21-32); CHLORIDE LEVEL 113 MEQ/L (98-107); GLOMERULAR FILTRATION RATE > 60.0 (>60); GLUCOSE, FASTING 109 MG/DL (70-100); POTASSIUM SERUM 3.2 MEQ/L (3.5-5.1); SODIUM LEVEL 144 MEQ/L (136-145)
[2019-12-26] VITALS (13 sets, daily range): BP systolic 86–115; BP diastolic 52–71
[2019-12-26 00:09] LABS: VENOUS BASE EXCESS -2.2 (-2.0-2.0); VENOUS HCO3 22.6 MEQ/L (23.0-27.0); VENOUS O2 SATURATION 94.3 % (60.0-80.0); VENOUS PARTIAL PRESSURE CO2 39.2 mmHg (38.0-50.0); VENOUS PARTIAL PRESSURE O2 69.7 mmHg (30.0-50.0); VENOUS PH 7.379 UNITS (7.330-7.430); VENOUS STANDARD HCO3 22.5 MEQ/L; VENOUS TOTAL CO2 23.8 MEQ/L (24.0-28.0)
[2019-12-26 00:27] LABS: BLOOD UREA NITROGEN 8 MG/DL (7-18); CALCIUM LEVEL 7.4 MG/DL (8.5-10.1); CARBON DIOXIDE LEVEL 24 MEQ/L (21-32); CHLORIDE LEVEL 111 MEQ/L (98-107); CREATININE FOR GFR 0.56 MG/DL (0.55-1.30); GLOMERULAR FILTRATION RATE > 60.0 (>60); GLUCOSE, FASTING 114 MG/DL (70-100); MAGNESIUM LEVEL 1.9 MG/DL (1.8-2.4); PHOSPHORUS LEVEL 3.8 MG/DL (2.5-4.9); POTASSIUM SERUM 3.5 MEQ/L (3.5-5.1); SODIUM LEVEL 143 MEQ/L (136-145)
[2019-12-26] MEDS: KCL 40MEQ IN D5/0.45NS 1000ML 1,000 ML IV SCH ×5 (01:54→15:23)
[2019-12-26] MEDS: INSULIN IV RATE CHANGE DOCUMENTATION ML/HR XX SCH ×11 (01:56→17:17)
[2019-12-26 02:23] LABS: BLOOD UREA NITROGEN 7 MG/DL (7-18); CALCIUM LEVEL 7.5 MG/DL (8.5-10.1); CARBON DIOXIDE LEVEL 25 MEQ/L (21-32); CHLORIDE LEVEL 111 MEQ/L (98-107); CREATININE FOR GFR 0.52 MG/DL (0.55-1.30); GLOMERULAR FILTRATION RATE > 60.0 (>60); GLUCOSE, FASTING 134 MG/DL (70-100); POTASSIUM SERUM 3.5 MEQ/L (3.5-5.1); SODIUM LEVEL 142 MEQ/L (136-145)
--- NOTE | 2019-12-26 02:47 | REP ---
AP PORTABLE CHEST: 12/25/2019. COMPARISON: CT and AP chest 12/24/2019. CLINICAL HISTORY: Dyspnea. FINDINGS: Lungs are less well inflated than on yesterday's study. Some crowded markings in the perihilar region and left base, which may reflect some mild atelectasis. I do not see dense consolidation, pleural effusion, or parenchymal mass. The heart, mediastinal and hilar contours are otherwise normal. The aorta and airway intact. Bones intact. No free air. IMPRESSION: 1. Less well inflated chest than yesterday with some crowded markings, suggesting subsegmental atelectatic change infrahilar, left greater than right, but no dense consolidation, pleural effusion, or other acute finding. Electronically Signed by Hardik Phelps MD 12/26/2019 08:47 A
[2019-12-26 04:53] LABS: VENOUS BASE EXCESS -3.8 (-2.0-2.0); VENOUS O2 SATURATION 99.4 % (60.0-80.0); VENOUS PARTIAL PRESSURE CO2 37.5 mmHg (38.0-50.0); VENOUS PARTIAL PRESSURE O2 199.1 mmHg (30.0-50.0); VENOUS PH 7.367 UNITS (7.330-7.430); VENOUS STANDARD HCO3 21.3 MEQ/L; VENOUS TOTAL CO2 22.2 MEQ/L (24.0-28.0)
[2019-12-26 05:14] LABS: BLOOD UREA NITROGEN 6 MG/DL (7-18); CALCIUM LEVEL 7.5 MG/DL (8.5-10.1); CARBON DIOXIDE LEVEL 24 MEQ/L (21-32); CHLORIDE LEVEL 111 MEQ/L (98-107); CREATININE FOR GFR 0.58 MG/DL (0.55-1.30); GLOMERULAR FILTRATION RATE > 60.0 (>60); GLUCOSE, FASTING 178 MG/DL (70-100); SODIUM LEVEL 141 MEQ/L (136-145)
[2019-12-26 06:28] LABS: BASO % 0.9 % (0.0-1.0); EOS # 0.3 10^3/uL (0.0-0.5); EOS % 6.4 % (0.0-3.0); HEMATOCRIT 34.4 % (36.0-47.0); HEMOGLOBIN 11.3 g/dl (12.0-15.5); LYMPH # 2.4 10^3/uL (1.5-5.0); LYMPH % 50.3 % (24.0-44.0); MEAN CORPUSCULAR HGB CONC 32.8 g/dl (32.0-36.5); MEAN CORPUSCULAR VOLUME 88.4 fl (80.0-96.0); MONO # 0.3 10^3/uL (0.0-0.8); MONO % 6.6 % (0.0-5.0); NEUTROPHILS # 1.7 10^3/uL (1.5-8.5); NEUTROPHILS % 35.6 % (36.0-66.0); PLATELET COUNT, AUTOMATED 255 10^3/uL (150-450); RED BLOOD COUNT 3.89 10^6/uL (4.00-5.40); WHITE BLOOD COUNT 4.7 10^3/uL (4.0-10.0)
[2019-12-26 06:52] LABS: BLOOD UREA NITROGEN 5 MG/DL (7-18); CALCIUM LEVEL 7.6 MG/DL (8.5-10.1); CARBON DIOXIDE LEVEL 23 MEQ/L (21-32); CHLORIDE LEVEL 111 MEQ/L (98-107); CREATININE FOR GFR 0.59 MG/DL (0.55-1.30); GLOMERULAR FILTRATION RATE > 60.0 (>60); GLUCOSE, FASTING 145 MG/DL (70-100); MAGNESIUM LEVEL 1.9 MG/DL (1.8-2.4); POTASSIUM SERUM 3.8 MEQ/L (3.5-5.1); SODIUM LEVEL 140 MEQ/L (136-145)
[2019-12-26 08:13] LABS: VENOUS BASE EXCESS -2.2 (-2.0-2.0); VENOUS HCO3 22.5 MEQ/L (23.0-27.0); VENOUS O2 SATURATION 99.2 % (60.0-80.0); VENOUS PARTIAL PRESSURE CO2 38.2 mmHg (38.0-50.0); VENOUS PARTIAL PRESSURE O2 166.6 mmHg (30.0-50.0); VENOUS PH 7.388 UNITS (7.330-7.430); VENOUS STANDARD HCO3 22.7 MEQ/L; VENOUS TOTAL CO2 23.7 MEQ/L (24.0-28.0)
[2019-12-26 08:49] LABS: BLOOD UREA NITROGEN 5 MG/DL (7-18); CALCIUM LEVEL 7.6 MG/DL (8.5-10.1); CARBON DIOXIDE LEVEL 23 MEQ/L (21-32); CHLORIDE LEVEL 110 MEQ/L (98-107); CREATININE FOR GFR 0.52 MG/DL (0.55-1.30); GLOMERULAR FILTRATION RATE > 60.0 (>60); GLUCOSE, FASTING 160 MG/DL (70-100); POTASSIUM SERUM 3.9 MEQ/L (3.5-5.1); SODIUM LEVEL 141 MEQ/L (136-145)
[2019-12-26] MEDS ORDERED: LORazepam 1 MG TAB PO ONE (09:15)
[2019-12-26] MEDS: ENOXAPARIN 40MG/0.4ML SYRINGE (J1650 PER 10MG) SC SCH (10:00)
[2019-12-26] MEDS ORDERED: LORazepam 2 MG/ML VIAL IV STA (10:33)
[2019-12-26 10:37] LABS: BLOOD UREA NITROGEN 3 MG/DL (7-18); CARBON DIOXIDE LEVEL 24 MEQ/L (21-32); CHLORIDE LEVEL 110 MEQ/L (98-107); CREATININE FOR GFR 0.55 MG/DL (0.55-1.30); GLOMERULAR FILTRATION RATE > 60.0 (>60); GLUCOSE, FASTING 159 MG/DL (70-100); POTASSIUM SERUM 3.9 MEQ/L (3.5-5.1); SODIUM LEVEL 139 MEQ/L (136-145)
[2019-12-26] MEDS ORDERED: LORazepam 2 MG/ML VIAL As Ordered ONE (10:37)
[2019-12-26 12:12] LABS: VENOUS BASE EXCESS -2.1 (-2.0-2.0); VENOUS HCO3 21.2 MEQ/L (23.0-27.0); VENOUS O2 SATURATION 99.7 % (60.0-80.0); VENOUS PARTIAL PRESSURE CO2 31.8 mmHg (38.0-50.0); VENOUS PARTIAL PRESSURE O2 252.4 mmHg (30.0-50.0); VENOUS PH 7.441 UNITS (7.330-7.430); VENOUS STANDARD HCO3 22.8 MEQ/L; VENOUS TOTAL CO2 22.1 MEQ/L (24.0-28.0)
[2019-12-26 12:56] LABS: BLOOD UREA NITROGEN 3 MG/DL (7-18); CALCIUM LEVEL 8.1 MG/DL (8.5-10.1); CARBON DIOXIDE LEVEL 22 MEQ/L (21-32); CHLORIDE LEVEL 107 MEQ/L (98-107); CREATININE FOR GFR 0.81 MG/DL (0.55-1.30); GLOMERULAR FILTRATION RATE > 60.0 (>60); GLUCOSE, FASTING 197 MG/DL (70-100); SODIUM LEVEL 139 MEQ/L (136-145)
--- NOTE | 2019-12-26 13:31 | REP ---
CHEST, SINGLE VIEW: There is no evidence of acute infiltrate. No pleural effusion is seen. The heart is normal in size. The mediastinal silhouette is unremarkable. The visualized osseous structures are intact. IMPRESSION: No acute pulmonary disease. Electronically Signed by Edward Hernandez MD 12/27/2019 11:05 P
--- NOTE | 2019-12-26 13:48 | IPNPDOC ---
Text Note Date of Service The patient was seen on 12/26/19. NOTE Subjective: Patient developed middle chest pain after she had eaten breakfast, patient described pain as severe mid chest with choking sensation. Objective: Vitals: (see below) General: In severe distress HEENT: Moist mucous membranes, no JVD Neck: No JVD or lymphadenopathy Cardiac: RRR, No murmurs Pulm: Clear to auscultation b/l. No wheezing, rhonchi Abd: NT/ND + BS Ext: No edema or cyanosis Neuro: Cranial nerves II-12 intact, nonfocal Assessment and plan Patient is 24 years old female with past medical history of diabetes mellitus presented to the hospital with DKA secondary to insulin pump malfunctioning. Patient received treatment with insulin drip, glucose level was stabilized but she developed severe anxiety, mid chest pain associated with choking sensation when she tried by mouth food intake. Differential diagnosis includes esophageal spasm, pill induced esophagitis, given history of NSAIDs intake or eosinophilic esophagitis given increased eosinophils in the peripheral blood DKA Patient received treatment with insulin drip Resolved Patient is not able to tolerate by mouth intake, continue insulin drip. If patient tolerates clear liquid diet we will discontinue insulin drip Diabetes mellitus Poorly controlled diabetes most likely secondary to malfunctioning pump HbA1c 11 According to patient she will receive new pump tomorrow Patient will need close follow-up with Dr. Garcia Atypical Chest pain cardiac workup was negative Differential diagnosis includes esophageal spasm, pill induced esophagitis, given history of NSAIDs intake or eosinophilic esophagitis given increased eosinophils in the peripheral blood Speech evaluation did not find oropharyngeal dysfunction. Chest x-ray clear lung grijalva Appreciate/agree with GI consult Clear liquid diet for now VS,Fishbae, I+O VS, Fishbone, I+O Laboratory Tests 12/25/19 15:49 12/25/19 18:18 12/25/19 20:03 12/25/19 22:10 12/26/19 00:00 12/26/19 01:52 12/26/19 04:35 12/26/19 06:11 12/26/19 08:05 12/26/19 10:01 12/26/19 12:04 Vital Signs Date Time Temp Pulse Resp B/P (MAP) Pulse Ox O2 Delivery O2 Flow Rate FiO2 12/26/19 10:00 78 20 113/69 (84) 99 Room Air 12/26/19 08:00 97.0 12/25/19 16:00 2.0 I&O- Last 24 Hours up to 6 AM 12/26/19 06:00 Intake Total 3661.0 ml Output Total 1150 ml Balance 2511.0 ml JONAH ALANIS DO Dec 26, 2019 13:48
[2019-12-26] MEDS: INSULIN REGULAR IN 0.9 % NACL 100 UNIT in IV 1 EA IV SCH ×2 (14:00)
[2019-12-26] MEDS: PANTOPRAZOLE 40MG VIAL (C9113 PER 1) IV SCH (15:23)
[2019-12-26] MEDS ORDERED: GLUCOSE 4GM CHEW TABLET PO PRN (15:30)
[2019-12-26] MEDS ORDERED: GLUCAGON INJ 1MG VIAL SC PRN (15:30)
[2019-12-26] MEDS ORDERED: DEXTROSE 50% 50 ML SYRINGE IV PRN (15:30)
[2019-12-26] MEDS ORDERED: LEVEMIR (INSULIN DETEMIR) 1 UNITS/0.01ML SC ONE (15:45)
[2019-12-26] MEDS: HumaLOG INSULIN (NovoLOG) PER UNIT SC SCH ×2 (17:17→20:50)
[2019-12-26 18:53] LABS: BLOOD UREA NITROGEN 3 MG/DL (7-18); CALCIUM LEVEL 8.2 MG/DL (8.5-10.1); CARBON DIOXIDE LEVEL 25 MEQ/L (21-32); CHLORIDE LEVEL 110 MEQ/L (98-107); CREATININE FOR GFR 0.66 MG/DL (0.55-1.30); GLOMERULAR FILTRATION RATE > 60.0 (>60); GLUCOSE, FASTING 167 MG/DL (70-100); POTASSIUM SERUM 4.1 MEQ/L (3.5-5.1); SODIUM LEVEL 142 MEQ/L (136-145)
[2019-12-26 23:51] LABS: BLOOD UREA NITROGEN 2 MG/DL (7-18); CALCIUM LEVEL 8.4 MG/DL (8.5-10.1); CARBON DIOXIDE LEVEL 27 MEQ/L (21-32); CHLORIDE LEVEL 109 MEQ/L (98-107); GLOMERULAR FILTRATION RATE > 60.0 (>60); GLUCOSE, FASTING 128 MG/DL (70-100); POTASSIUM SERUM 3.8 MEQ/L (3.5-5.1); SODIUM LEVEL 142 MEQ/L (136-145)
[2019-12-26] MEDS: RAMELTEON 8 MG TAB (ROZEREM) PO PRN (23:58)
[2019-12-27 05:43] LABS: HEMATOCRIT 38.3 % (36.0-47.0); HEMOGLOBIN 12.5 g/dl (12.0-15.5); MEAN CORPUSCULAR HEMOGLOBIN 28.7 pg (27.0-33.0); MEAN CORPUSCULAR HGB CONC 32.6 g/dl (32.0-36.5); PLATELET COUNT, AUTOMATED 297 10^3/uL (150-450); RED BLOOD COUNT 4.35 10^6/uL (4.00-5.40); WHITE BLOOD COUNT 4.5 10^3/uL (4.0-10.0)
[2019-12-27 06:00] VITALS: BP 107/56
[2019-12-27 06:05] LABS: BLOOD UREA NITROGEN 2 MG/DL (7-18); CALCIUM LEVEL 8.5 MG/DL (8.5-10.1); CARBON DIOXIDE LEVEL 28 MEQ/L (21-32); CHLORIDE LEVEL 109 MEQ/L (98-107); CREATININE FOR GFR 0.62 MG/DL (0.55-1.30); GLOMERULAR FILTRATION RATE > 60.0 (>60); GLUCOSE, FASTING 111 MG/DL (70-100); POTASSIUM SERUM 4.1 MEQ/L (3.5-5.1); SODIUM LEVEL 144 MEQ/L (136-145)
[2019-12-27] MEDS: HumaLOG INSULIN (NovoLOG) PER UNIT SC SCH ×4 (08:46→20:41)
[2019-12-27] MEDS: LEVEMIR (INSULIN DETEMIR) 1 UNITS/0.01ML SC SCH ×2 (09:00→20:52)
[2019-12-27] MEDS ORDERED: LEVEMIR (INSULIN DETEMIR) 1 UNITS/0.01ML SC ONE (09:15)
[2019-12-27] MEDS: ENOXAPARIN 40MG/0.4ML SYRINGE (J1650 PER 10MG) SC SCH (09:29)
[2019-12-27] MEDS: ONDANSETRON 4MG/2ML VIAL IV PRN ×2 (10:09→18:06)
[2019-12-27] MEDS: NS 1,000 ML IV SCH ×2 (10:30→20:30)
[2019-12-27 11:51] LABS: BLOOD UREA NITROGEN 4 MG/DL (7-18); CARBON DIOXIDE LEVEL 25 MEQ/L (21-32); CHLORIDE LEVEL 105 MEQ/L (98-107); CREATININE FOR GFR 0.64 MG/DL (0.55-1.30); GLOMERULAR FILTRATION RATE > 60.0 (>60); GLUCOSE, FASTING 243 MG/DL (70-100); POTASSIUM SERUM 4.1 MEQ/L (3.5-5.1); SODIUM LEVEL 138 MEQ/L (136-145)
[2019-12-27] MEDS ORDERED: fentaNYL 100 MCG/2 ML INJECTION (J3010) As Ordered ONE (14:24)
[2019-12-27] MEDS ORDERED: LIDOCAINE 2% 100MG/5ML SDV (FOR ANES.) As Ordered ONE (14:24)
[2019-12-27] MEDS ORDERED: propofoL 200 MG/20 ML VIAL As Ordered ONE (14:24)
--- NOTE | 2019-12-27 14:48 | ROOR ---
Patient Name: Marissa Sanchez Procedure Date: 12/27/2019 2:18 PM Date of : 1995 Age: 24 Room: [facility] Gender: Female Note Status: Finalized Procedure: Upper GI endoscopy Indications: Nausea with vomiting, Persistent vomiting Providers: Geronimo Allen MD Referring MD: Marleny Garcia MD Requesting Provider: Medicines: Monitored Anesthesia Care Complications: No immediate complications. Procedure: Pre-Anesthesia Assessment: - Prior to the procedure, a History and Physical was performed, and patient medications and allergies were reviewed. The patient is competent. The risks and benefits of the procedure and the sedation options and risks were discussed with the patient. All questions were answered and informed consent was obtained. Patient identification and proposed procedure were verified by the physician, the nurse and the anesthesiologist in the procedure room. Mental Status Examination: alert and oriented. Airway Examination: normal oropharyngeal airway and neck mobility. Respiratory Examination: clear to auscultation. CV Examination: normal. Prophylactic Antibiotics: The patient does not require prophylactic antibiotics. Prior Anticoagulants: The patient has taken no previous anticoagulant or antiplatelet agents. ASA Grade Assessment: II - A patient with mild systemic disease. After reviewing the risks and benefits, the patient was deemed in satisfactory condition to undergo the procedure. The anesthesia plan was to use monitored anesthesia care (MAC). Immediately prior to administration of medications, the patient was re-assessed for adequacy to receive sedatives. The heart rate, respiratory rate, oxygen saturations, blood pressure, adequacy of pulmonary ventilation, and response to care were monitored throughout the procedure. The physical status of the patient was re-assessed after the procedure. The Endoscope was introduced through the mouth, and advanced to the second part of duodenum. The upper GI endoscopy was accomplished without difficulty. The patient tolerated the procedure well. Findings: The examined esophagus was normal. The Z-line was regular and was found 40 cm from the incisors. Patchy mild inflammation characterized by erosions, erythema, friability and granularity was found in the gastric antrum. Biopsies were taken with a cold forceps for Helicobacter pylori testing. Biopsies were taken with a cold forceps for Helicobacter pylori testing. Verification of patient identification for the specimen was done by the physician and nurse using the patient's name, date and medical record number. Estimated blood loss was minimal. The duodenal bulb and second portion of the duodenum were normal. Biopsies for histology were taken with a cold forceps for evaluation of celiac disease. Impression: - Normal esophagus. - Z-line regular, 40 cm from the incisors. - Gastritis. Biopsied. - Normal duodenal bulb and second portion of the duodenum. Biopsied. Recommendation: - Patient has a contact number available for emergencies. The signs and symptoms of potential delayed complications were discussed with the patient. Return to normal activities tomorrow. Written discharge instructions were provided to the patient. - Advance diet as tolerated. - Gastroparesis diet. - Continue present medications. - Await pathology results. - Do a gastric emptying study in 3 months. - Telephone GI clinic for pathology results in 2 weeks. - Return to GI clinic in 3 months. - Return to primary care physician. Geronimo Allen MD Geronimo Allen MD 12/27/2019 2:47:43 PM Electronically signed by Geronimo Allen MD Number of Addenda: 0 Note Initiated On: 12/27/2019 2:18 PM Estimated Blood Loss: Estimated blood loss was minimal.
[2019-12-27 15:20] VITALS: BP 106/70
[2019-12-27] MEDS: PANTOPRAZOLE 40MG VIAL (C9113 PER 1) IV SCH (15:29)
--- NOTE | 2019-12-27 16:22 | IPNPDOC ---
Date Seen The patient was seen on 12/27/19. Progress Note 24 y/o F was admitted for DKA. Pt was seen at bedside. NO significant event over the night. Pt c/o mild generalized weakness and mild anxiety. Physical examination General: NOt in distress HEENT: Moist mucous membranes, Neck:neck supple Cardiac: RRR, No murmurs Pulm: Clear to auscultation b/l. No wheezing, rhonchi Abd: soft, NT/ND + BS Ext: No edema or cyanosis Neuro: Cranial nerves II-12 intact, nonfocal Assessment and plan 24 y/o f with h/o diabetes mellitus presented to the hospital with DKA secondary to insulin pump malfunctioning. Patient received treatment with insulin drip, glucose level was stabilized but she developed severe anxiety, mid chest pain associated with choking sensation when she tried by mouth food intake. Differential diagnosis includes esophageal spasm, pill induced esophagitis, given history of NSAIDs intake or eosinophilic esophagitis given increased eosinophils in the peripheral blood for that pt had EGD- that showed gastritis DKA Resolved will advance diet as tolerated s/p EGD Diabetes mellitus Poorly controlled diabetes most likely secondary to malfunctioning pump HbA1c 11 According to patient she will receive a new pump Patient will need close follow-up with Dr. Garcia Atypical Chest pain resolved cardiac workup was negative Gastritis started on pantoprazole VS, I&O, 24H, John Vital Signs/I&O Vital Signs Date Time Temp Pulse Resp B/P (MAP) Pulse Ox O2 Delivery O2 Flow Rate FiO2 12/27/19 15:20 98.1 79 16 106/70 (82) 97 Room Air 12/27/19 15:12 2.0 I&O- Last 24 Hours up to 6 AM 12/27/19 06:00 Intake Total 3720 ml Output Total 6100 ml Balance -2380 ml Laboratory Data 24H LABS Laboratory Tests 2 12/26/19 17:14: Bedside Glucose (Misc Panel) 178H 12/26/19 17:41: Anion Gap 7L, Glomerular Filtration Rate > 60.0, Calcium Level 8.2L 12/26/19 18:02: Bedside Glucose (Misc Panel) 143H 12/26/19 19:13: Bedside Glucose (Misc Panel) 183H 12/26/19 20:28: Bedside Glucose (Misc Panel) 196H 12/26/19 23:12: Anion Gap 6L, Glomerular Filtration Rate > 60.0, Calcium Level 8.4L 12/26/19 23:53: Bedside Glucose (Misc Panel) 101 12/27/19 05:26: Anion Gap 7L, Glomerular Filtration Rate > 60.0, Calcium Level 8.5, Nucleated Red Blood Cells % (auto) 0.0 12/27/19 10:55: Anion Gap 8, Glomerular Filtration Rate > 60.0, Calcium Level 9.0 12/27/19 11:32: Bedside Glucose (Misc Panel) 220H CBC/BMP Laboratory Tests 12/26/19 17:41 12/26/19 23:12 12/27/19 05:26 12/27/19 10:55 Microbiology Microbiology 12/24/19 Blood Culture - Preliminary, Resulted No Growth after 72 hours. All specime... 12/24/19 Blood Culture - Preliminary, Resulted No Growth after 72 hours. All specime... 12/24/19 Respiratory Virus Panel (PCR) (CAM) - Final, Complete PHILIP MAI MD Dec 27, 2019 16:22
--- NOTE | 2019-12-27 17:33 | CR.PDOC ---
General Date of Consultation: Dec 26, 2019 Referring Provider: JONAH CASTILLO DO Attending Physician: SADI ALVAREZ MD Consultation Primary physician/ hospitalist: Dr. Castillo Reason for consult: Persistent nausea and vomiting. HPI: 24-year-old female patient with DM type 1, uncontrolled on insulin pump, was admitted to hospital for DKA and poorly controlled diabetes, was noted to have persistent nausea and vomiting, and GI was consulted for the same. Patient had an episode of chest pain with choking sensation when she was resume on solid foods yesterday and had cardiac evaluation for the same. Patient at the time of examination, reported still having nausea but able to tolerate clear liquids. Patient reports substernal pain and epigastric tenderness on examination. Pertinent negative GI symptoms: Patient denies fever, sick contacts, recent travel, diarrhea, loss of appetite, early satiety or unintentional weight loss. No history of hematemesis, melena or hematochezia. Review of Systems: GI: as stated above CVS: as above.. RS: No Shortness of breath, No Wheezing, no cough IMPROVEMENT ADVISOR: No dizziness, No motor weakness, No sensory problems Hematology: No bruising, No gum bleeding, Musculoskeletal: No joint pain, ambulating well. Skin: No rash : No hematuria, No burning sensation of the urine ENT: No ear discharge/ pain, No dysphagia. Eyes: No photophobia. Jaundice Home medications: reviewed. Antithrombotic agents - None Medical h/o: As above. Surgical h/o: None on abdomen. Social h/o: Alcohol Denies, smoking Denies, IVDA/ drugs Denies . Family h/o of GI cancers - None Prior Endoscopies: None Prior GI evaluations: None Exam: Vitals: reviewed General: Alert and oriented x 3, Mild distress from pain. HEENT: NO pallor, no icterus. Normal oropharynx, NO cervical lymph nodes. Chest: symmetric with bilateral clear air entry, CVS: S1, S2 heard, normal, no murmurs. Abdomen: non-distended, no surgical scars, soft, mild tenderness in epigastric area, no palpable masses, normal bowel sounds heard. Rectal exam: Patient refused / Deferred at this time in view of scheduled colonoscopy. Extremities: no pedal edema, pulses palpable. IMPROVEMENT ADVISOR: no focal motor or sensory deficits. Moves all extremities Skin: no rash. Labs/ imaging: reviewed. Impression: -- Persistent nausea and vomiting, pain with swallowing foods in patient with poorly controlled DM type 1 with resolving DKA -- DDx-- GERD with esophagitis vs rule out gastroparesis vs From underlying DKA itself. Less likely celiac disease. Recommendations: - Patient educated about the test results, possible differential diagnoses and All questions answered. - Management of electrolyte and DKA as per the primary team. - Correct electrolytes. 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 - Clear liquid diet until 6 hours prior to procedure. - Will schedule for EGD for further evaluation. - The procedure, indications, risks (bleeding, perforation, infection, hypotension, respiratory depression, allergy, need for endotracheal intubation, surgery, colostomy, cardiac arrest, even ), benefits, limitations (e.g., missing a lesion), and all other alternatives (including no intervention) were explained to the patient who understood and agreed for the procedure. - Further recommendations as per the operative note. Plan of care discussed with patient and primary team. Patient verbalized understanding and agreed with the plan. Addendum: (Post procedure) Patient tolerate the procedure well. EGD showed normal esophagus and mild gastritis and normal duodenum. Biopsies were done. suspected gastroparesis. Patient is educated about the gastroparesis diet changes and to closely follow with Endocrinology for optimization of her diabetic therapy. Will continue Protonix for atleast 6 weeks. Will schedule for Gastric emptying study electively after the acute issues are resolved. Recommendations communicated to patient and primary team. Vital Signs/I&O Vital Signs Date Time Temp Pulse Resp B/P (MAP) Pulse Ox O2 Delivery O2 Flow Rate FiO2 12/27/19 15:20 98.1 79 16 106/70 (82) 97 Room Air 12/27/19 15:12 2.0 I&O- Last 24 Hours up to 6 AM 12/27/19 05:59 Intake Total 3720 ml Output Total 6100 ml Balance -2380 ml Laboratory Data Labs 24H Laboratory Tests 2 12/26/19 17:41: Anion Gap 7L, Glomerular Filtration Rate > 60.0, Calcium Level 8.2L 12/26/19 18:02: Bedside Glucose (Misc Panel) 143H 12/26/19 19:13: Bedside Glucose (Misc Panel) 183H 12/26/19 20:28: Bedside Glucose (Misc Panel) 196H 12/26/19 23:12: Anion Gap 6L, Glomerular Filtration Rate > 60.0, Calcium Level 8.4L 12/26/19 23:53: Bedside Glucose (Misc Panel) 101 12/27/19 05:26: Anion Gap 7L, Glomerular Filtration Rate > 60.0, Calcium Level 8.5, Nucleated Red Blood Cells % (auto) 0.0 12/27/19 10:55: Anion Gap 8, Glomerular Filtration Rate > 60.0, Calcium Level 9.0 12/27/19 11:32: Bedside Glucose (Misc Panel) 220H 12/27/19 17:22: Bedside Glucose (Misc Panel) 81 CBC/BMP Laboratory Tests 12/26/19 17:41 12/26/19 23:12 12/27/19 05:26 12/27/19 10:55 Microbiology Microbiology 12/24/19 Blood Culture - Preliminary, Resulted No Growth after 72 hours. All specime... 12/24/19 Blood Culture - Preliminary, Resulted No Growth after 72 hours. All specime... 12/24/19 Respiratory Virus Panel (PCR) (CAM) - Final, Complete Allergies Coded Allergies: Penicillins (Verified Adverse Reaction, Mild, vomiting., 06/21/19) amoxicillin (Verified Adverse Reaction, Mild, vomiting, 06/21/19) clavulanic acid (Verified Adverse Reaction, Mild, vomiting, 06/21/19) Home Medications Scheduled Insulin Human Lispro (Humalog) 1 Units/0.01 Ml Inj, 1 UNITS SC INSULIN PUMP, (Reported) MAX DAILY DOSE 70 UNITS Scheduled PRN Acetaminophen (Acetaminophen) 500 Mg Tablet, 1,000 MG PO Q6H PRN for PAIN, (Reported) Ibuprofen (Ibuprofen) 800 Mg Tab, 800 MG PO Q6H PRN for PAIN, (Reported) Ondansetron (Ondansetron Odt) 4 Mg Tab.rapdis, 4 MG PO Q6-8HP PRN for nausea/vomiting for 4 Days, #16 (Reported) Miscellaneous Medications Levonorgestrel (Mirena) 20 Mcg/24 Hr Iud, 20 MCG IU, (Reported) SADI ALVAREZ MD Dec 27, 2019 17:32
[2019-12-27 18:13] LABS: BLOOD UREA NITROGEN 4 MG/DL (7-18); CALCIUM LEVEL 8.9 MG/DL (8.5-10.1); CARBON DIOXIDE LEVEL 28 MEQ/L (21-32); CHLORIDE LEVEL 106 MEQ/L (98-107); CREATININE FOR GFR 0.66 MG/DL (0.55-1.30); GLOMERULAR FILTRATION RATE > 60.0 (>60); GLUCOSE, FASTING 88 MG/DL (70-100); POTASSIUM SERUM 3.4 MEQ/L (3.5-5.1); SODIUM LEVEL 141 MEQ/L (136-145)
[2019-12-27] MEDS ORDERED: RAMELTEON 8 MG TAB (ROZEREM) PO PRN (19:15)
[2019-12-27] MEDS: RAMELTEON 8 MG TAB (ROZEREM) PO PRN (20:52)
[2019-12-27 22:00] VITALS: BP 110/71
[2019-12-27 23:17] LABS: BLOOD UREA NITROGEN 4 MG/DL (7-18); CALCIUM LEVEL 8.5 MG/DL (8.5-10.1); CARBON DIOXIDE LEVEL 28 MEQ/L (21-32); CHLORIDE LEVEL 107 MEQ/L (98-107); CREATININE FOR GFR 0.67 MG/DL (0.55-1.30); GLOMERULAR FILTRATION RATE > 60.0 (>60); GLUCOSE, FASTING 152 MG/DL (70-100); POTASSIUM SERUM 3.7 MEQ/L (3.5-5.1); SODIUM LEVEL 141 MEQ/L (136-145)
[2019-12-28 06:00] VITALS: BP 110/82
[2019-12-28 06:02] LABS: BLOOD UREA NITROGEN 5 MG/DL (7-18); CARBON DIOXIDE LEVEL 30 MEQ/L (21-32); CHLORIDE LEVEL 105 MEQ/L (98-107); CREATININE FOR GFR 0.74 MG/DL (0.55-1.30); GLOMERULAR FILTRATION RATE > 60.0 (>60); GLUCOSE, FASTING 83 MG/DL (70-100); POTASSIUM SERUM 3.6 MEQ/L (3.5-5.1); SODIUM LEVEL 142 MEQ/L (136-145)
[2019-12-28] MEDS: NS 1,000 ML IV SCH (06:30)
[2019-12-28] MEDS: HumaLOG INSULIN (NovoLOG) PER UNIT SC SCH ×2 (07:28→12:27)
[2019-12-28] MEDS: ENOXAPARIN 40MG/0.4ML SYRINGE (J1650 PER 10MG) SC SCH (09:46)
[2019-12-28] MEDS: LEVEMIR (INSULIN DETEMIR) 1 UNITS/0.01ML SC SCH (09:47)
[2019-12-28] MEDS ORDERED: ACETAMINOPHEN TAB 650MG DOSE (2X325MG) PO PRN (10:15)
[2019-12-28 11:45] LABS: BLOOD UREA NITROGEN 5 MG/DL (7-18); CARBON DIOXIDE LEVEL 27 MEQ/L (21-32); CHLORIDE LEVEL 104 MEQ/L (98-107); CREATININE FOR GFR 0.64 MG/DL (0.55-1.30); GLOMERULAR FILTRATION RATE > 60.0 (>60); GLUCOSE, FASTING 152 MG/DL (70-100); POTASSIUM SERUM 3.7 MEQ/L (3.5-5.1); SODIUM LEVEL 140 MEQ/L (136-145)
[2019-12-28] MEDS ORDERED: PANT40TA3 PO (12:50)
--- NOTE | 2019-12-28 12:58 | DS.PDOC ---
Discharge Summary General Date of Admission Dec 24, 2019 at 08:36 Date of Discharge 12/28/19 Discharge Summary PROCEDURES PERFORMED DURING STAY: EGD ADMITTING DIAGNOSES: DKA. DISCHARGE DIAGNOSES: Resolved episode of DKA and gastritis COMPLICATIONS/CHIEF COMPLAINT: Diabetic Ketoacidosis. HOSPITAL COURSE: 24 y/o F was initially admitted for DKA most probably related to insulin pump malfunction. Pt continued to c/o epigastric pain for that she had EGD that showed mild gastritis. Pt was started on pantoprazole after that epigastric pain resolved. Over the course of treatment pt's clinical condition improved. New insulin pump was delivered to hospital; insulin pump was installed and was in place/working on the day of discharge. Pt was seen and examined at bedside on day of discharge. Pt stated that she is feeling fine and did not have any complaint. Pt was clinically and vitally stable at the time of discharge. DISCHARGE MEDICATIONS: Please see below. PHYSICAL EXAMINATION ON DISCHARGE: GENERAL: comfortable HEENT: oral mucosa moist NECK: supple CARDIOVASCULAR EXAMINATION: regular rate and rhythm RESPIRATORY EXAMINATION: clear to auscultation ABDOMINAL EXAMINATION: soft, non tender, normal bowel sounds heard EXTREMITIES: No edema SKIN: No lesion NEUROLOGICAL EXAMINATION: no focal deficit PSYCHIATRIC EXAMINATION: mood normal LABORATORY DATA: Please see below. DIET: diabetic diet ITEMS TO FOLLOWUP ON ON OUTPATIENT: f/u with GI service as scheduled TIME SPENT ON DISCHARGE: 35 minutes. Vital Signs/I&Os Vital Signs Date Time Temp Pulse Resp B/P (MAP) Pulse Ox O2 Delivery O2 Flow Rate FiO2 12/28/19 06:00 98.1 74 16 110/82 (91) 98 Room Air 12/27/19 15:12 2.0 I&O- Last 24 Hours up to 6 AM 12/28/19 06:00 Intake Total 3110 ml Output Total 3350 ml Balance -240 ml Laboratory Data Labs 24H Laboratory Tests 2 12/27/19 17:22: Bedside Glucose (Misc Panel) 81 12/27/19 17:39: Anion Gap 7L, Glomerular Filtration Rate > 60.0, Calcium Level 8.9 12/27/19 20:06: Bedside Glucose (Misc Panel) 181H 12/27/19 22:43: Anion Gap 6L, Glomerular Filtration Rate > 60.0, Calcium Level 8.5 12/28/19 04:54: Bedside Glucose (Misc Panel) 72 12/28/19 05:26: Anion Gap 7L, Glomerular Filtration Rate > 60.0, Calcium Level 9.0 12/28/19 11:04: Anion Gap 9, Glomerular Filtration Rate > 60.0, Calcium Level 9.0 12/28/19 11:57: Bedside Glucose (Misc Panel) 198H CBC/BMP Laboratory Tests 12/27/19 17:39 12/27/19 22:43 12/28/19 05:26 12/28/19 11:04 FSBS Laboratory Tests Test 12/27/19 17:22 12/27/19 20:06 12/28/19 04:54 12/28/19 11:57 Range/Units Bedside Glucose (Misc Panel) 81 181 72 198 70-105 MG/DL Microbiology Microbiology 12/24/19 Blood Culture - Preliminary, Resulted No Growth after 72 hours. All specime... 12/24/19 Blood Culture - Preliminary, Resulted No Growth after 72 hours. All specime... 12/24/19 Respiratory Virus Panel (PCR) (CAM) - Final, Complete Discharge Medications Scheduled Insulin Human Lispro (Humalog) 1 Units/0.01 Ml Inj, 1 UNITS SC INSULIN PUMP, (Reported) MAX DAILY DOSE 70 UNITS Pantoprazole Sodium (Pantoprazole Sodium) 40 Mg Tablet.dr, 1 TAB PO DAILY Scheduled PRN Acetaminophen (Acetaminophen) 500 Mg Tablet, 1,000 MG PO Q6H PRN for PAIN, (Reported) Ondansetron (Ondansetron Odt) 4 Mg Tab.rapdis, 4 MG PO Q6-8HP PRN for nausea/vomiting, (Reported) Miscellaneous Medications Levonorgestrel (Mirena) 20 Mcg/24 Hr Iud, 20 MCG IU, (Reported) Allergies Coded Allergies: Penicillins (Verified Adverse Reaction, Mild, vomiting., 06/21/19) amoxicillin (Verified Adverse Reaction, Mild, vomiting, 06/21/19) clavulanic acid (Verified Adverse Reaction, Mild, vomiting, 06/21/19) PHILIP MAI MD Dec 28, 2019 12:57
[2019-12-28] MEDS: PANTOPRAZOLE 40MG VIAL (C9113 PER 1) IV SCH (15:00)
== END 2019-12-28 15:34 | disposition home or self-care (01) | DRG 813 ==
LOC: M ED 04:28 → EEVIPCON 08:36 → M ED INP 08:36 → ENRESERV 08:48 → M ICU 10:46 → M MSPAV 12-26 21:47
PROVIDERS: ADMIT Internal Medicine; ATTEND Internal Medicine
PROC: 0DB68ZX Excision of Stomach, Via Natural or Artificial Opening Endoscopic, Diagnostic (ICD-10-PCS; principal; 2019-12-27 13:30)
DX: T85.694A Other mechanical complication of insulin pump, initial encounter (principal); Z88.0 Allergy status to penicillin; Z88.8 Allergy status to other drugs, medicaments and biological substances; Z79.4 Long term (current) use of insulin; Z79.899 Other long term (current) drug therapy; E10.10 Type 1 diabetes mellitus with ketoacidosis without coma; F41.0 Panic disorder [episodic paroxysmal anxiety]; K29.50 Unspecified chronic gastritis without bleeding; Y83.3 Surgical operation with formation of external stoma as the cause of abnormal reaction of the patient, or of later complication, without mention of misadventure at the time of the procedure

== ENCOUNTER 2020-04-23 20:43 | Emergency (ER) | payer OTHER ==
[~2020-04-23] VITALS: Ht 175.3 cm; Wt 85.5 kg
[2020-04-23 20:43] VITALS: BP 131/62
[~2020-04-23 20:43] MED LIST changes: +ACET-683 PO; +PANT40TA29 PO
[2020-04-23 22:25] LABS: VENOUS BASE EXCESS 0.4 (-2.0-2.0); VENOUS HCO3 26.1 MEQ/L (23.0-27.0); VENOUS O2 SATURATION 88.5 % (60.0-80.0); VENOUS PARTIAL PRESSURE O2 55.3 mmHg (30.0-50.0); VENOUS PH 7.371 UNITS (7.330-7.430); VENOUS STANDARD HCO3 24.6 MEQ/L; VENOUS TOTAL CO2 27.5 MEQ/L (24.0-28.0)
[2020-04-23 22:27] LABS: BASO % 0.6 % (0.0-1.0); EOS # 0.1 10^3/uL (0.0-0.5); EOS % 1.8 % (0.0-3.0); HEMATOCRIT 38.1 % (36.0-47.0); HEMOGLOBIN 12.5 g/dl (12.0-15.5); LYMPH # 1.7 10^3/uL (1.5-5.0); LYMPH % 51.6 % (24.0-44.0); MEAN CORPUSCULAR HEMOGLOBIN 28.4 pg (27.0-33.0); MEAN CORPUSCULAR HGB CONC 32.8 g/dl (32.0-36.5); MEAN CORPUSCULAR VOLUME 86.6 fl (80.0-96.0); MONO # 0.4 10^3/uL (0.0-0.8); MONO % 11.3 % (0.0-5.0); NEUTROPHILS # 1.2 10^3/uL (1.5-8.5); NEUTROPHILS % 34.4 % (36.0-66.0); PLATELET COUNT, AUTOMATED 227 10^3/uL (150-450); WHITE BLOOD COUNT 3.4 10^3/uL (4.0-10.0)
[2020-04-23 22:46] LABS: HCG, SERUM QUALITATIVE NEGATIVE (NEGATIVE)
[2020-04-23 22:47] LABS: HEMOGLOBIN A1c 9.1 %
[2020-04-23 22:55] LABS: ACETONE/KETONE 7.89 MG/DL (<2.81); BLOOD UREA NITROGEN 11 MG/DL (7-18); CALCIUM LEVEL 8.5 MG/DL (8.5-10.1); CARBON DIOXIDE LEVEL 26 MEQ/L (21-32); CHLORIDE LEVEL 104 MEQ/L (98-107); CREATININE FOR GFR 0.76 MG/DL (0.55-1.30); GLOMERULAR FILTRATION RATE > 60.0 (>60); GLUCOSE, FASTING 63 MG/DL (70-100); POTASSIUM SERUM 3.4 MEQ/L (3.5-5.1); SODIUM LEVEL 139 MEQ/L (136-145)
--- NOTE | 2020-04-23 23:51 | REPVR ---
PROCEDURE INFORMATION: Exam: CT Head Without Contrast Exam date and time: 04/23/2020 11:22 PM Age: 25 years old Clinical indication: Visual disturbance; Additional info: Blurred vision TECHNIQUE: Imaging protocol: Computed tomography of the head without contrast. Radiation optimization: All CT scans at this facility use at least one of these dose optimization techniques: automated exposure control; mA and/or kV adjustment per patient size (includes targeted exams where dose is matched to clinical indication); or iterative reconstruction. COMPARISON: No relevant prior studies available. FINDINGS: Brain: Normal. No hemorrhage. Unremarkable white matter. No mass effect. Cerebral ventricles: No ventriculomegaly. Bones/joints: Unremarkable. No acute fracture. Paranasal sinuses: Visualized sinuses are unremarkable. No fluid levels. Mastoid air cells: Visualized mastoid air cells are well aerated. Soft tissues: Unremarkable. IMPRESSION: No acute intracranial abnormality. Electronically signed by: Berhane Kent On 04/23/2020 23:50:40 PM
== END 2020-04-24 00:20 | disposition home or self-care (01) ==
LOC: M ED 20:43
DX: E11.9 Type 2 diabetes mellitus without complications (principal); H53.129 Transient visual loss, unspecified eye; F43.10 Post-traumatic stress disorder, unspecified; Z88.0 Allergy status to penicillin; Z88.8 Allergy status to other drugs, medicaments and biological substances; Z97.5 Presence of (intrauterine) contraceptive device

== ENCOUNTER 2020-04-27 20:33 | Emergency (ER) | payer OTHER ==
[~2020-04-27] VITALS: Ht 175.3 cm; Wt 90.9 kg
[2020-04-27] MEDS ORDERED: ADME100I SC (20:47)
[2020-04-27] MEDS ORDERED: ACETAMINOPHEN 325 MG TAB PO ONE (21:30)
--- NOTE | 2020-04-27 23:28 | REPVR ---
PROCEDURE INFORMATION: Exam: XR Chest, 1 View Exam date and time: 04/27/2020 11:13 PM Age: 25 years old Clinical indication: Cough and fever; Additional info: Sob/fever TECHNIQUE: Imaging protocol: XR of the chest Views: 1 view. COMPARISON: CR PORTABLE CHEST X-RAY 12/26/2019 10:47 AM FINDINGS: Lungs: Degree of lung inflation is normal. No evidence of pulmonary edema. No focal consolidation or parenchymal lung mass. Pleural space: No pleural effusion or pneumothorax. Heart/Mediastinum: Cardiac silhouette appears normal. No adenopathy or hilar mass. Bones/joints: Osseous structures show no concerning abnormality. IMPRESSION: No acute or focal cardiopulmonary process. Electronically signed by: Jeffrey Maciel On 04/27/2020 23:28:16 PM
[2020-04-28] MEDS ORDERED: ALBU83IN NEB (00:55)
[2020-04-28 01:32] VITALS: BP 107/62
[2020-04-28] MEDS ORDERED: VENTAER INH (01:34)
== END 2020-04-28 01:34 | disposition home or self-care (01) ==
LOC: M ED 20:33 → EEVIPCON 20:33 → M ED 04-28 01:34
DX: U07.1 COVID-19 (principal); E10.65 Type 1 diabetes mellitus with hyperglycemia; F41.9 Anxiety disorder, unspecified; Z79.4 Long term (current) use of insulin; Z79.899 Other long term (current) drug therapy; Z88.0 Allergy status to penicillin; Z88.1 Allergy status to other antibiotic agents; Z88.8 Allergy status to other drugs, medicaments and biological substances
CPT/HCPCS: 71045; 87880; 99284; U0002

== ENCOUNTER 2020-04-30 00:18 | Observation (INO) | payer OTHER ==
[~2020-04-30] VITALS: Ht 175.3 cm; Wt 90.6 kg
[~2020-04-30 00:18] MED LIST changes: +ADME100I SC; +ALBU83IN NEB; +VENTAER INH
[2020-04-30] MEDS ORDERED: ALBUTEROL 90 MCG/ACT 8GM HFA INHALER INH ONE ×2 (01:00→03:45)
[2020-04-30] MEDS ORDERED: NS 1,000 ML IV ONE (01:00)
[2020-04-30 01:31] LABS: BASO % 0.3 % (0.0-1.0); EOS # 0.1 10^3/uL (0.0-0.5); EOS % 2.5 % (0.0-3.0); HEMATOCRIT 39.8 % (36.0-47.0); HEMOGLOBIN 12.7 g/dl (12.0-15.5); LYMPH # 1.7 10^3/uL (1.5-5.0); LYMPH % 53.7 % (24.0-44.0); MEAN CORPUSCULAR HEMOGLOBIN 27.7 pg (27.0-33.0); MEAN CORPUSCULAR HGB CONC 31.9 g/dl (32.0-36.5); MEAN CORPUSCULAR VOLUME 86.9 fl (80.0-96.0); MONO # 0.2 10^3/uL (0.0-0.8); MONO % 5.6 % (0.0-5.0); NEUTROPHILS # 1.2 10^3/uL (1.5-8.5); NEUTROPHILS % 37.9 % (36.0-66.0); PLATELET COUNT, AUTOMATED 220 10^3/uL (150-450); RED BLOOD COUNT 4.58 10^6/uL (4.00-5.40); WHITE BLOOD COUNT 3.2 10^3/uL (4.0-10.0)
[2020-04-30] MEDS ORDERED: methylPREDNISolone 125MG 2ML VIAL IV ONE (01:45)
[2020-04-30 01:47] LABS: PARTIAL THROMBOPLASTIN TIME 26.9 SECONDS (24.2-38.5)
[2020-04-30 01:49] LABS: D-DIMER QUANT 453.24 ng/ml (<500)
[2020-04-30 01:50] LABS: INR 0.94; PROTHROMBIN TIME 12.8 SECONDS (12.5-14.3)
--- NOTE | 2020-04-30 01:50 | REPVR ---
PROCEDURE INFORMATION: Exam: XR Chest, 1 View Exam date and time: 04/30/2020 1:36 AM Age: 25 years old Clinical indication: Shortness of breath; Additional info: Coronavirus workup TECHNIQUE: Imaging protocol: XR of the chest Views: 1 view. COMPARISON: CR PORTABLE CHEST X-RAY 04/27/2020 9:40 PM FINDINGS: Lungs: Degree of lung inflation is normal. No evidence of pulmonary edema. No focal consolidation or parenchymal lung mass. Pleural space: No pleural effusion or pneumothorax. Heart/Mediastinum: Cardiac silhouette appears normal. No adenopathy or hilar mass. Bones/joints: Osseous structures show no concerning abnormality. IMPRESSION: No acute or focal cardiopulmonary process. Electronically signed by: Jeffrey Maciel On 04/30/2020 01:49:53 AM
[2020-04-30 02:02] LABS: ALBUMIN 3.4 GM/DL (3.2-5.2); ALT/SGPT 22 U/L (12-78); BILIRUBIN,TOTAL 0.4 MG/DL (0.2-1.0); BLOOD UREA NITROGEN 7 MG/DL (7-18); CALCIUM LEVEL 8.3 MG/DL (8.5-10.1); CARBON DIOXIDE LEVEL 27 MEQ/L (21-32); CHLORIDE LEVEL 110 MEQ/L (98-107); CK-MB VALUE MASS < 1.0 NG/ML (<3.6); CPK CREATINE PHOSPHOKINASE 86 U/L (26-192); CREATININE FOR GFR 0.68 MG/DL (0.55-1.30); FERRITIN 106 NG/ML (8-252); GLOMERULAR FILTRATION RATE > 60.0 (>60); GLUCOSE, FASTING 94 MG/DL (70-100); LDH LACTATE DEHYDROGENASE 150 U/L (84-246); MB/CK RELATIVE INDEX 1.16 (< OR =4); POTASSIUM SERUM 3.5 MEQ/L (3.5-5.1); SODIUM LEVEL 142 MEQ/L (136-145); TOTAL PROTEIN 6.4 GM/DL (6.4-8.2); TROPONIN I < 0.02 NG/ML (< 0.10)
[2020-04-30 02:12] LABS: HCG, SERUM QUALITATIVE NEGATIVE (NEGATIVE)
[2020-04-30] MEDS ORDERED: ACETAMINOPHEN TAB 650MG DOSE (2X325MG) PO PRN (02:30)
[2020-04-30] MEDS ORDERED: ALBUTEROL 90 MCG/ACT 8GM HFA INHALER INH PRN ×2 (02:30→06:00)
[2020-04-30] MEDS ORDERED: GLUCAGON INJ 1MG VIAL SC PRN (02:30)
[2020-04-30] MEDS ORDERED: GLUCOSE 4GM CHEW TABLET PO PRN (02:30)
[2020-04-30] MEDS ORDERED: DEXTROSE 50% 50 ML SYRINGE IV PRN (02:30)
[2020-04-30] MEDS ORDERED: VENTAER INH (02:46)
[2020-04-30] MEDS ORDERED: ALBU83IN INH (02:48)
[2020-04-30 03:19] LABS: ERYTHROCYTE SEDIMENTATION RATE 9 mm/hr (0-20)
[2020-04-30 04:00] VITALS: BP 119/68
[2020-04-30 04:57] VITALS: O2SAT 94
--- NOTE | 2020-04-30 05:43 | HPEPDOC ---
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 Patient was taking Tylenol 500 mg every 4 every 6 hours and 800 mg of ibuprofen every 4 hours from Thursday into Thursday, Thursday. Due to dyspnea and exertion. Her glucose levels have been uncontrolled between 200-300 at home with her usual insulin pump.Patient decided to come in for evaluation. She was found to be 97% on room air with ambulation. Hospitalist was called to admit for monitoring of respiratory status Covid positive Patient. PAST MEDICAL HISTORY: COVID-19 POSITIVE, DM type 1, anxiety PAST SURGICAL HISTORY: HOME MEDICATIONS: SEE below ALLERGY: see below SOCIAL HISTORY: denies etoh, cigarette, drug use. 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 Hypertension. Asthma, skin cancer. REVIEW OF SYSTEMS: As per HPI, otherwise negative 10 point review of system. PHYSICAL EXAMINATION: VITAL SIGNS: See below GENERAL: Patient alert and oriented times three. No conversational dyspnea. No tripod positioning. No use of respiratory accessory muscles. No pallor, no cyanosis HEENT: Normocephalic, atraumatic.. Pupils equally round, reactive to light and accommodation. Extra muscles are intact. No JVD, no thyromegaly, no cervical lymphadenopathy. . No pharyngeal erythema. Moist mucous membranes No stridor and exam PULMONARY: Diminished with faint expiratory wheezing. Crackles at the right base CARDIAC: Regular rate and rhythm. S1, S2. . No adventitious breath sounds ABDOMEN: Soft. Nontender. Nondistended. , Positive bowel sounds 4 quadrants. No hepatosplenomegaly. No abdominal bruits EXTREMITIES: No edema, cyanosis, clubbing. LABORATORY DATA: See below. IMAGING: Exam: XR Chest, 1 View Exam date and time: 04/30/2020 1:36 AM Age: 25 years old Clinical indication: Shortness of breath; Additional info: Coronavirus workup TECHNIQUE: Imaging protocol: XR of the chest Views: 1 view. COMPARISON: CR PORTABLE CHEST X-RAY 04/27/2020 9:40 PM FINDINGS: Lungs: Degree of lung inflation is normal. No evidence of pulmonary edema. No focal consolidation or parenchymal lung mass. Pleural space: No pleural effusion or pneumothorax. Heart/Mediastinum: Cardiac silhouette appears normal. No adenopathy or hilar mass. Bones/joints: Osseous structures show no concerning abnormality. IMPRESSION: No acute or focal cardiopulmonary process. 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 Patient was taking Tylenol 500 mg every 4 every 6 hours and 800 mg of ibuprofen every 4 hours from Thursday into Thursday, Thursday. Due to dyspnea and exertion. Her glucose levels have been uncontrolled between 200-300 at home with her usual insulin pump.Patient decided to come in for evaluation. She was found to be 97% on room air with ambulation. Hospitalist was called to admit for monitoring of respiratory status Covid positive Patient. COVID-19 -Patient is admitted to the Covid units supplemental oxygen if needed if the O2 sat drops below 94%. Keep the patient on continuous pulse oximetry. Encourage ambulation, DVT prophylaxis with Lovenox. Chest x-ray has no acute infiltrates. If patient should have worsening hypoxia with O2 sat less than 94%. Worsening infiltrates and repeat chest x-ray will need to start them this severe. . Continue on inhalers. Avoid nebulizer DM type 1 -Insulin pump per patient's hypoglycemic protocol sliding scale before every meal CHS Anxiety -Chronic Diet consistent carbohydrate diet CODE STATUS full code DVT prophylaxis. Lovenox Vital Signs Vital Signs Date Time Temp Pulse Resp B/P (MAP) Pulse Ox O2 Delivery O2 Flow Rate FiO2 04/30/20 01:29 Room Air 04/30/20 01:00 98.0 98 17 113/72 (86) 98 Laboratory Data Labs 24H Laboratory Tests 2 04/30/20 01:08: POC pH (Misc Panel) 7.492H, POC Base Excess (Misc Panel) -3.0L, POC Saturated Percent O2 (Misc) 97, POC pO2 (Misc Panel) 79.0L, POC pCO2 (Misc Panel) 27.2L, POC HCO3 (Misc Panel) 20.8L, POC Total CO2 (Misc Panel) 22.0L 04/30/20 01:23: Immature Granulocyte % (Auto) 0.0, Neutrophils (%) (Auto) 37.9, Lymphocytes (%) (Auto) 53.7H, Monocytes (%) (Auto) 5.6H, Eosinophils (%) (Auto) 2.5, Basophils (%) (Auto) 0.3, Neutrophils # (Auto) 1.2L, Lymphocytes # (Auto) 1.7, Monocytes # (Auto) 0.2, Eosinophils # (Auto) 0.1, Basophils # (Auto) 0.0, Nucleated Red Blood Cells % (auto) 0.0, Prothrombin Time 12.8, Prothromb Time International Ratio 0.94, Activated Partial Thromboplast Time 26.9, D-Dimer, Quantitative 453.24, Anion Gap 5L, Glomerular Filtration Rate > 60.0, Calcium Level 8.3L, Ferritin 106, Total Bilirubin 0.4, Aspartate Amino Transf (AST/SGOT) 16, Alanine Aminotransferase (ALT/SGPT) 22, Alkaline Phosphatase 77, Lactate Dehydrogenase 150, Total Creatine Kinase 86, Creatine Kinase MB < 1.0, Creatine Kinase MB Relative Index 1.16, Troponin I < 0.02, C-Reactive Protein, Quantitative 0.80H, Total Protein 6.4, Albumin 3.4, Albumin/Globulin Ratio 1.1L, Human Chorionic Gonadotropin, Qual NEGATIVE CBC/BMP Laboratory Tests 04/30/20 01:23 Microbiology Microbiology 04/30/20 Blood Culture, Received Pending Home Medications Scheduled Insulin Lispro (Admelog) 100 Unit/1 Ml Vial, 1 DOSE SC ASDIRECTED patient has insulin pump Scheduled PRN Acetaminophen (Acetaminophen) 500 Mg Tablet, 1,000 MG PO Q6H PRN for PAIN Albuterol Sulf (Albuterol Sulfate) 2.5 Mg/3 Ml Vial.neb, 2.5 MG INH Q4H PRN for SHORTNESS OF BREATH Albuterol Sulfate (Ventolin Hfa) 18 Gm Hfa.aer.ad, 2 PUFF INH Q4-6HP PRN for wheezing Miscellaneous Medications Levonorgestrel (Mirena) 20 Mcg/24 Hr Iud, 20 MCG IU Allergies Coded Allergies: vancomycin (Verified Allergy, Severe, red vaibhav, 04/30/20) Penicillins (Verified Adverse Reaction, Mild, vomiting., 06/21/19) amoxicillin (Verified Adverse Reaction, Mild, vomiting, 06/21/19) clavulanic acid (Verified Adverse Reaction, Mild, vomiting, 06/21/19) A-FIB/CHADSVASC A-FIB History Current/History of A-Fib/PAF?: No Current PO Anticoag Therapy: No Age/Risk Factor Scoring CHADSVASC: CHADSVASC Response (Comments) Value Age Risk Factor Age < 65 years old 0 Gender Risk Factor Female 1 Hx of CHF No 0 Hx of HTN No 0 Hx of Stroke/TIA/or VTE No 0 Hx of Diabetes Yes 1 Hx of Vascular Disease No 0 Total 2 Treatment Treatment ordered: NONE HE JACINTO MD Apr 30, 2020 02:18
[2020-04-30 08:11] LABS: BASO % 0.3 % (0.0-1.0); HEMATOCRIT 39.7 % (36.0-47.0); HEMOGLOBIN 12.8 g/dl (12.0-15.5); LYMPH # 0.4 10^3/uL (1.5-5.0); LYMPH % 12.5 % (24.0-44.0); MEAN CORPUSCULAR HEMOGLOBIN 28.3 pg (27.0-33.0); MEAN CORPUSCULAR HGB CONC 32.2 g/dl (32.0-36.5); MEAN CORPUSCULAR VOLUME 87.8 fl (80.0-96.0); MONO # 0.1 10^3/uL (0.0-0.8); MONO % 1.4 % (0.0-5.0); NEUTROPHILS % 85.5 % (36.0-66.0); PLATELET COUNT, AUTOMATED 232 10^3/uL (150-450); RED BLOOD COUNT 4.52 10^6/uL (4.00-5.40); WHITE BLOOD COUNT 3.5 10^3/uL (4.0-10.0)
[2020-04-30] MEDS: ALBUTEROL 90 MCG/ACT 8GM HFA INHALER INH SCH ×5 (08:31→23:02)
[2020-04-30 08:49] LABS: ALBUMIN 3.5 GM/DL (3.2-5.2); ALT/SGPT 17 U/L (12-78); BILIRUBIN,DIRECT 0.2 MG/DL (0.0-0.2); BILIRUBIN,TOTAL 0.5 MG/DL (0.2-1.0); C REACTIVE PROTEIN QUANTITATIV 0.79 MG/DL (0.00-0.30); CK-MB VALUE MASS < 1.0 NG/ML (<3.6); CPK CREATINE PHOSPHOKINASE 72 U/L (26-192); FERRITIN 112 NG/ML (8-252); LDH LACTATE DEHYDROGENASE 154 U/L (84-246); MB/CK RELATIVE INDEX 1.39 (< OR =4); TOTAL PROTEIN 6.4 GM/DL (6.4-8.2); TROPONIN I < 0.02 NG/ML (< 0.10)
[2020-04-30] MEDS: HumaLOG INSULIN (NovoLOG) PER UNIT SC SCH ×3 (09:11→17:34)
[2020-04-30] MEDS: ENOXAPARIN 40MG/0.4ML SYRINGE (J1650 PER 10MG) SC SCH (09:11)
[2020-04-30 09:14] VITALS: BP 124/61
[2020-04-30 09:16] LABS: ERYTHROCYTE SEDIMENTATION RATE 16 mm/hr (0-20)
[2020-04-30] MEDS ORDERED: methylPREDNISolone 40MG 1ML VIAL IV SCH (14:00)
[2020-04-30 17:48] VITALS: BP 121/62
--- NOTE | 2020-04-30 18:25 | IPNPDOC ---
Subjective Date Seen The patient was seen on 04/30/20. Subjective Chief Complaint/HPI Ms. 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 She is doing well at room air. Nurses walked her with pulse ox and saturated around 97%. She feels better this evening. Appetites still is not back, but her sense of taste is coming back. Denies fevers or chest pain. She has some dyspnea on exertion. Cough with exertion. No abdominal pain, diarrhea, or dysuria. Objective Physical Examination General Exam: Positive: Alert, Cooperative Eye Exam: Positive: EOMI; Negative: Sclera icteric ENT Exam: Positive: Atraumatic Neck Exam: Positive: Supple Chest Exam: Positive: Clear to auscultation Heart Exam: Positive: Rate Normal, Regular Rhythm Abdomen Exam: Positive: Normal bowel sounds, Soft; Negative: Tenderness Extremity Exam: Negative: Edema Neuro Exam: Positive: Cranial Nerves 3-12 NL Psych Exam: Positive: Mental status NL, Mood NL Assessment /Plan Assessment Ms. 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 She started having symptoms last (5 days ago) and came here for evaluation. She has been doing well at room air and ambulating at room air. She is feeling better. She will need to self quarantine when she is discharged. Plan/VTE VTE Prophylaxis Ordered?: Yes Plan 1. COVID infection -Has not needed oxygen at rest or with ambulation -Discontinue IV solumedrol -Self quarantine at home when discharged -Supportive care 2. Type I DM -Insulin pump 3. DVT ppx -Lovenox Disposition: If she does well tonight, she can go home tomorrow. Will need to self quarantine at home VS, I&O, 24H, Fishbone Vital Signs/I&O Vital Signs Date Time Temp Pulse Resp B/P (MAP) Pulse Ox O2 Delivery O2 Flow Rate FiO2 04/30/20 17:48 98.6 81 16 121/62 (81) 98 04/30/20 17:40 Room Air 04/30/20 03:33 2.0 I&O- Last 24 Hours up to 6 AM 04/30/20 05:59 Intake Total 1000 ml Output Total 0 ml Balance 1000 ml Laboratory Data 24H LABS Laboratory Tests 2 04/30/20 01:04: Bedside Glucose (Misc Panel) 97 04/30/20 01:08: POC pH (Misc Panel) 7.492H, POC Base Excess (Misc Panel) -3.0L, POC Saturated Percent O2 (Misc) 97, POC pO2 (Misc Panel) 79.0L, POC pCO2 (Misc Panel) 27.2L, POC HCO3 (Misc Panel) 20.8L, POC Total CO2 (Misc Panel) 22.0L 04/30/20 01:23: Immature Granulocyte % (Auto) 0.0, Neutrophils (%) (Auto) 37.9, Lymphocytes (%) (Auto) 53.7H, Monocytes (%) (Auto) 5.6H, Eosinophils (%) (Auto) 2.5, Basophils (%) (Auto) 0.3, Neutrophils # (Auto) 1.2L, Lymphocytes # (Auto) 1.7, Monocytes # (Auto) 0.2, Eosinophils # (Auto) 0.1, Basophils # (Auto) 0.0, Nucleated Red Blood Cells % (auto) 0.0, Erythrocyte Sedimentation Rate 9, Prothrombin Time 12.8, Prothromb Time International Ratio 0.94, Activated Partial Thromboplast Time 26.9, D-Dimer, Quantitative 453.24, Anion Gap 5L, Glomerular Filtration Rate > 60.0, Lactic Acid Level 1.2, Calcium Level 8.3L, Ferritin 106, Total Bilirubin 0.4, Aspartate Amino Transf (AST/SGOT) 16, Alanine Aminotransferase (A LT/SGPT) 22, Alkaline Phosphatase 77, Lactate Dehydrogenase 150, Total Creatine Kinase 86, Creatine Kinase MB < 1.0, Creatine Kinase MB Relative Index 1.16, Troponin I < 0.02, C-Reactive Protein, Quantitative 0.80H, Total Protein 6.4, Albumin 3.4, Albumin/Globulin Ratio 1.1L, Procalcitonin 0.09, Human Chorionic Gonadotropin, Qual NEGATIVE 04/30/20 07:46: Immature Granulocyte % (Auto) 0.3, Neutrophils (%) (Auto) 85.5H, Lymphocytes (%) (Auto) 12.5L, Monocytes (%) (Auto) 1.4, Eosinophils (%) (Auto) 0.0, Basophils (%) (Auto) 0.3, Neutrophils # (Auto) 3.0, Lymphocytes # (Auto) 0.4L, Monocytes # (Auto) 0.1, Eosinophils # (Auto) 0.0, Basophils # (Auto) 0.0, Nucleated Red Blood Cells % (auto) 0.0, Erythrocyte Sedimentation Rate 16, D-Dimer, Quantitative 377.01, Ferritin 112, Total Bilirubin 0.5, Aspartate Amino Transf (AST/SGOT) 13, Alanine Aminotransferase (ALT/SGPT) 17, Alkaline Phosphatase 80, Lactate Dehydrogenase 154, Total Creatine Kinase 72, Creatine Kinase MB < 1.0, Creatine Kinase MB Relative Index 1.39, Troponin I < 0.02, C-Reactive Protein, Quantitative 0.79H, Total Protein 6.4, Albumin 3.5, Albumin/Globulin Ratio 1.2, Direct Bilirubin 0.2 04/30/20 09:04: Bedside Glucose (Misc Panel) 287H 04/30/20 11:33: Bedside Glucose (Misc Panel) 286H 04/30/20 16:26: Bedside Glucose (Misc Panel) 332H CBC/BMP Laboratory Tests 04/30/20 01:23 04/30/20 07:46 Microbiology Microbiology 04/30/20 Blood Culture, Received Pending REGINE SAN DO Apr 30, 2020 18:25
[2020-04-30] MEDS ORDERED: HumaLOG INSULIN (NovoLOG) PER UNIT SC SCH (21:00)
[2020-04-30 22:00] VITALS: BP 129/63
[2020-05-01] MEDS: ALBUTEROL 90 MCG/ACT 8GM HFA INHALER INH SCH ×3 (02:59→13:23)
[2020-05-01 06:00] VITALS: BP 105/54
[2020-05-01] MEDS: HumaLOG INSULIN (NovoLOG) PER UNIT SC SCH ×2 (08:57→13:22)
[2020-05-01] MEDS: ENOXAPARIN 40MG/0.4ML SYRINGE (J1650 PER 10MG) SC SCH (08:57)
--- NOTE | 2020-05-01 12:05 | IPNPDOC ---
Text Note Date of Service The patient was seen on 05/01/20. NOTE Subjective: Patient seen and examined this morning at bedside. Tells me she's feeling better and has been ambulating around her room with no problems. Feels ready to go home today. Nurse tells me there was no overnight events. Objective: Constitutional: Awake and alert, in no apparent distress ENT: Sclera are clear. Mucosa is moist. Respiratory: Lungs CTA bilaterally. No respiratory distress. No use of accessory muscles. Cardiovascular: RRR S1 and S2 are normal, no murmur Gastrointestinal: Abdomen is soft, non distended, non tender, BS present. Musculoskeletal: No edema. Neurologic: No focal neurological deficit. 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 She started having symptoms 5 days prior to presentation and came here for evaluation. She has been doing well at room air and ambulating at room air. She is feeling better. She will need to self quarantine when she is discharged. # COVID infection: Has not required oxygen at rest or with ambulation. Feeling much better. We'll need to self quarantine at home per CDC recommendations which was discussed with patient. Supportive care. # Type I DM: Insulin pump. Fu with endocrine. # DVT ppx: Lovenox A [place] Hospitalist VS,John, I+O VS, John, I+O Vital Signs Date Time Temp Pulse Resp B/P (MAP) Pulse Ox O2 Delivery O2 Flow Rate FiO2 05/01/20 06:00 97.6 90 18 105/54 (71) 97 Room Air 04/30/20 03:33 2.0 I&O- Last 24 Hours up to 6 AM 05/01/20 06:00 Intake Total 1500 ml Balance 1500 ml SATHYA MONREAL MD May 01, 2020 12:05
[2020-05-01] MEDS ORDERED: VENTAER INH (12:07)
== END 2020-05-01 14:23 | disposition home health service (06) ==
LOC: M ED 00:18 → M ED INP 00:19 → M 4MAIN 04:11
PROVIDERS: ADMIT General Practice; ATTEND General Practice
DX: U07.1 COVID-19 (principal); R06.02 Shortness of breath; R50.9 Fever, unspecified; E10.9 Type 1 diabetes mellitus without complications; Z96.41 Presence of insulin pump (external) (internal); Z79.4 Long term (current) use of insulin; F41.1 Generalized anxiety disorder; Z88.2 Allergy status to sulfonamides; Z88.1 Allergy status to other antibiotic agents
CPT/HCPCS: 36415; 36600; 71045; 80053; 80076; 82550; 82553; 82728; 82803; 83605; 83615; 84145; 84703; 85025; 85379; 85610; 85652; 85730; 86140; 87040; 94640; 96361; 96372; 96374; 96376; 99285; J1650; J2920; J2930

== ENCOUNTER → 2020-09-24 | Outpatient (REF) | payer OTHER ==
[~2020-09-24] MED LIST changes: +ALBU83IN INH; +GABA-282 PO; -GABA-843 PO
[2020-09-24 14:44] LABS: HCG, SERUM QUALITATIVE NEGATIVE (NEGATIVE)
== END ==
LOC: M PLALAB 11:16
PROVIDERS: ATTEND Advanced Practice Midwife
DX: R11.0 Nausea (principal)

== ENCOUNTER 2020-11-01 19:31 | Emergency (ER) | payer OTHER ==
[~2020-11-01] VITALS: Ht 175.3 cm; Wt 93.9 kg
[2020-11-01 22:09] LABS: BASO # 0.1 10^3/uL (0.0-0.2); BASO % 1.3 % (0.0-1.0); EOS # 0.3 10^3/uL (0.0-0.5); EOS % 5.4 % (0.0-3.0); HEMATOCRIT 38.4 % (36.0-47.0); HEMOGLOBIN 12.9 g/dl (12.0-15.5); LYMPH # 2.4 10^3/uL (1.5-5.0); LYMPH % 42.5 % (24.0-44.0); MEAN CORPUSCULAR HEMOGLOBIN 29.2 pg (27.0-33.0); MEAN CORPUSCULAR HGB CONC 33.6 g/dl (32.0-36.5); MEAN CORPUSCULAR VOLUME 86.9 fl (80.0-96.0); MONO # 0.4 10^3/uL (0.0-0.8); NEUTROPHILS # 2.4 10^3/uL (1.5-8.5); NEUTROPHILS % 43.6 % (36.0-66.0); PLATELET COUNT, AUTOMATED 351 10^3/uL (150-450); RED BLOOD COUNT 4.42 10^6/uL (4.00-5.40); WHITE BLOOD COUNT 5.6 10^3/uL (4.0-10.0)
[2020-11-01 22:33] LABS: ALT/SGPT 20 U/L (12-78); BILIRUBIN,TOTAL 1.1 MG/DL (0.2-1.0); BLOOD UREA NITROGEN 17 MG/DL (7-18); CALCIUM LEVEL 8.5 MG/DL (8.5-10.1); CARBON DIOXIDE LEVEL 26 MEQ/L (21-32); CHLORIDE LEVEL 103 MEQ/L (98-107); CK-MB VALUE MASS < 1.0 NG/ML (<3.6); CPK CREATINE PHOSPHOKINASE 172 U/L (26-192); CREATININE FOR GFR 0.96 MG/DL (0.55-1.30); GLOMERULAR FILTRATION RATE > 60.0 (>60); GLUCOSE, FASTING 266 MG/DL (70-100); MB/CK RELATIVE INDEX 0.58 (< OR =4); SODIUM LEVEL 136 MEQ/L (136-145); TOTAL PROTEIN 7.2 GM/DL (6.4-8.2); TROPONIN I < 0.02 NG/ML (< 0.10)
[2020-11-01] MEDS ORDERED: NS 1,000 ML IV ONE (22:35)
--- NOTE | 2020-11-01 23:53 | REPVR ---
PROCEDURE INFORMATION: Exam: CT Head Without Contrast Exam date and time: 11/01/2020 9:31 PM Age: 25 years old Clinical indication: Dizziness TECHNIQUE: Imaging protocol: Computed tomography of the head without contrast. Axial and coronal reformatted images were created and reviewed. Radiation optimization: All CT scans at this facility use at least one of these dose optimization techniques: automated exposure control; mA and/or kV adjustment per patient size (includes targeted exams where dose is matched to clinical indication); or iterative reconstruction. COMPARISON: CT Head without contrast 04/23/2020 11:18 PM FINDINGS: Brain: No CT evidence of acute intracranial hemorrhage or acute territorial infarction. No significant mass effect or midline shift. Basal cisterns patent. Cerebral ventricles: Normal in size and configuration. Bones/joints: No acute osseous abnormality. Paranasal sinuses: Unremarkable. No fluid levels. Mastoid air cells: Grossly unremarkable. Soft tissues: Grossly unremarkable. IMPRESSION: No CT evidence of acute intracranial pathology. Electronically signed by: Addy Zuniga On 11/01/2020 23:52:49 PM
[2020-11-02] MEDS ORDERED: ACETAMINOPHEN 500 MG TAB PO ONE (00:10)
[2020-11-02] MEDS ORDERED: MECLIZINE 25 MG TABLET PO ONE (00:10)
[2020-11-02 00:37] LABS: ACETONE/KETONE 1.25 MG/DL (<2.81); MAGNESIUM LEVEL 1.7 MG/DL (1.8-2.4); PHOSPHORUS LEVEL 3.7 MG/DL (2.5-4.9)
[2020-11-02 00:45] LABS: OSMOLALITY SERUM 292 MOSM/KG (275-295)
--- NOTE | 2020-11-02 01:08 | REPVR ---
PROCEDURE INFORMATION: Exam: CT Cervical Spine Without Contrast Exam date and time: 11/02/2020 12:04 AM Age: 25 years old Clinical indication: Neck pain; Additional info: Midline tenderness TECHNIQUE: Imaging protocol: Computed tomography images of the cervical spine without contrast. Axial, coronal and sagittal reformatted images were created and reviewed. Radiation optimization: All CT scans at this facility use at least one of these dose optimization techniques: automated exposure control; mA and/or kV adjustment per patient size (includes targeted exams where dose is matched to clinical indication); or iterative reconstruction. COMPARISON: CT Spine,cervical w/o contrast 09/15/2018 12:26 PM FINDINGS: Bones/joints: Normal cervical lordosis. No CT evidence of acute fracture, dislocation or subluxation. Alignment anatomic. Vertebral body heights maintained. Discs/Spinal canal/Neural foramina: Intervertebral disc spaces preserved. No significant spinal canal or neural foraminal stenosis. Sinuses: Polypoid right greater than left maxillary sinus mucosal thickening. Lungs: Grossly unremarkable. Soft tissues: Grossly unremarkable. IMPRESSION: 1. No CT evidence of acute cervical spine traumatic injury. 2. Additional findings, as above. Electronically signed by: Addy Zuniga On 11/02/2020 01:07:01 AM
[2020-11-02 01:18] LABS: AMPHETAMINES LEVEL URINE NEGATIVE (NEGATIVE); BARBITURATES URINE NEGATIVE (NEGATIVE); BENZODIAZEPINES URINE NEGATIVE (NEGATIVE); CANNABINOIDS URINE NEGATIVE (NEGATIVE); COCAINE METABOLITE URINE NEGATIVE (NEGATIVE); METHADONE URINE NEGATIVE (NEGATIVE); OPIATES URINE NEGATIVE (NEGATIVE); PHENCYCLIDINE URINE NEGATIVE (NEGATIVE)
--- NOTE | 2020-11-02 01:19 | REPVR ---
PROCEDURE INFORMATION: Exam: XR Complete Acute Abdomen Series Exam date and time: 11/02/2020 12:10 AM Age: 25 years old Clinical indication: Other: Abdominal pain TECHNIQUE: Imaging protocol: XR complete acute abdomen series, including 2 or more views of the abdomen and a single view chest. COMPARISON: CR PORTABLE CHEST X-RAY 04/30/2020 1:25 AM FINDINGS: Lungs: Normal. No consolidation. Pleural spaces: Normal. No pleural effusions. No pneumothorax. Heart/Mediastinum: Normal. No cardiomegaly. Gastrointestinal tract: Moderate amount of gas and stool in the colon. No obstruction. Intraperitoneal space: Normal. No free air. Bones/joints: Normal. No acute fracture. Soft tissues: Normal. IMPRESSION: No acute findings. Electronically signed by: Addy Zuniga On 11/02/2020 01:19:00 AM
[2020-11-02 01:37] LABS: APPEARANCE, URINE CLEAR (CLEAR); BACTERIA, URINE AUTO NEGATIVE (NEGATIVE); BILIRUBIN, URINE AUTO NEGATIVE (NEGATIVE); BLOOD, URINE BLOOD NEGATIVE (NEGATIVE); COLOR, URINE YELLOW (YELLOW); GLUCOSE, URINE (UA) AUTO 3+ mg/dL (NEGATIVE); KETONE, URINE AUTO NEGATIVE (NEGATIVE); LEUKOCYTE ESTERASE, URINE AUTO NEGATIVE (NEGATIVE); NITRITE, URINE AUTO NEGATIVE (NEGATIVE); PROTEIN, URINE AUTO NEGATIVE (NEGATIVE); RBC, URINE AUTO 1 /HPF (0-3); SPECIFIC GRAVITY URINE AUTO 1.024 (1.002-1.035); SQUAMOUS EPITHELIAL CELL UR AU 2 /HPF (0-6); WBC, URINE AUTO 1 /HPF (0-3)
[2020-11-02] MEDS ORDERED: ZONI100C17 PO (01:57)
[2020-11-02] MEDS ORDERED: ZONI25CA13 PO (01:57)
[2020-11-02 02:39] VITALS: BP 115/72
--- NOTE | 2020-11-02 20:29 | ECGEPIP ---
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
== END 2020-11-02 02:42 | disposition home or self-care (01) ==
LOC: M ED 19:31
DX: B34.8 Other viral infections of unspecified site (principal); E10.65 Type 1 diabetes mellitus with hyperglycemia; R55 Syncope and collapse; R42 Dizziness and giddiness; E86.0 Dehydration; G43.909 Migraine, unspecified, not intractable, without status migrainosus; Z86.16 Personal history of COVID-19; F41.9 Anxiety disorder, unspecified; Z88.0 Allergy status to penicillin; Z88.1 Allergy status to other antibiotic agents; Z79.899 Other long term (current) drug therapy

== ENCOUNTER → 2021-01-01 | Outpatient (CLI) | payer OTHER ==
[~2021-01-01] MED LIST changes: +ZONI100C17 PO; +ZONI25CA13 PO
[2021-01-01 19:06] LABS: HEMOGLOBIN A1c 8.9 %
[2021-01-01 19:27] LABS: ALT/SGPT 24 U/L (12-78); BILIRUBIN,TOTAL 1.3 MG/DL (0.2-1.0); BLOOD UREA NITROGEN 12 MG/DL (7-18); CALCIUM LEVEL 9.5 MG/DL (8.5-10.1); CARBON DIOXIDE LEVEL 27 MEQ/L (21-32); CHLORIDE LEVEL 106 MEQ/L (98-107); CREATININE FOR GFR 0.74 MG/DL (0.55-1.30); FREE T4 1.11 NG/DL (0.76-1.46); GLOMERULAR FILTRATION RATE > 60.0 (>60); GLUCOSE, FASTING 113 MG/DL (70-100); HCG, SERUM QUANTITATIVE < 1.0 MIU/ML; POTASSIUM SERUM 4.3 MEQ/L (3.5-5.1); SODIUM LEVEL 140 MEQ/L (136-145); THYROID STIMULATING HORMONE 0.806 uIU/ML (0.358-3.740); TOTAL PROTEIN 7.1 GM/DL (6.4-8.2)
== END ==
LOC: M PLALAB 15:23
PROVIDERS: ATTEND Student in an Organized Health Care Education/Training Program
DX: E10.65 Type 1 diabetes mellitus with hyperglycemia (principal); F33.3 Major depressive disorder, recurrent, severe with psychotic symptoms

== ENCOUNTER → 2021-01-01 | Outpatient (REF) | payer OTHER | LOC: M SFHCPLAZ 15:16 | PROVIDERS: ATTEND Family Medicine | DX: Z53.9 Procedure and treatment not carried out, unspecified reason (principal); E10.65 Type 1 diabetes mellitus with hyperglycemia; F33.3 Major depressive disorder, recurrent, severe with psychotic symptoms ==

== ENCOUNTER → 2021-02-01 | Outpatient (REF) | payer OTHER ==
[2021-02-01 15:12] LABS: HEPATITIS A ANTIBODY IGM NEGATIVE (NEGATIVE); HEPATITIS B CORE ANTIBODY IGM NEGATIVE (NEGATIVE); HEPATITIS B SURFACE ANTIGEN NEGATIVE (NEGATIVE); HEPATITIS C VIRUS ABY INDEX < 0.0 INDEX (<0.8); HIV 1&2 SCREEN CENTAUR NEGATIVE (NEGATIVE)
== END ==
LOC: M LAB REF 13:07
PROVIDERS: ATTEND Student in an Organized Health Care Education/Training Program
DX: Z11.3 Encounter for screening for infections with a predominantly sexual mode of transmission (principal)

== ENCOUNTER → 2021-04-16 | Outpatient (REF) | payer OTHER ==
[~2021-04-16] MED LIST changes: -IBUP200T45 PO; +IBUP200T46 PO
[2021-04-16 14:02] LABS: BASO # 0.1 10^3/uL (0.0-0.2); BASO % 1.5 % (0.0-1.0); EOS # 0.3 10^3/uL (0.0-0.5); EOS % 4.6 % (0.0-3.0); HEMATOCRIT 40.4 % (36.0-47.0); HEMOGLOBIN 13.3 g/dl (12.0-15.5); LYMPH # 1.4 10^3/uL (1.5-5.0); LYMPH % 25.9 % (24.0-44.0); MEAN CORPUSCULAR HEMOGLOBIN 28.4 pg (27.0-33.0); MEAN CORPUSCULAR HGB CONC 32.9 g/dl (32.0-36.5); MEAN CORPUSCULAR VOLUME 86.3 fl (80.0-96.0); MONO # 0.3 10^3/uL (0.0-0.8); MONO % 5.8 % (2.0-8.0); NEUTROPHILS # 3.4 10^3/uL (1.5-8.5); PLATELET COUNT, AUTOMATED 365 10^3/uL (150-450); RED BLOOD COUNT 4.68 10^6/uL (4.00-5.40); WHITE BLOOD COUNT 5.5 10^3/uL (4.0-10.0)
[2021-04-16 14:52] LABS: ALBUMIN 3.9 GM/DL (3.2-5.2); ALT/SGPT 27 U/L (12-78); BILIRUBIN,TOTAL 1.1 MG/DL (0.2-1.0); BLOOD UREA NITROGEN 10 MG/DL (7-18); CALCIUM LEVEL 9.1 MG/DL (8.5-10.1); CARBON DIOXIDE LEVEL 29 MEQ/L (21-32); CHLORIDE LEVEL 104 MEQ/L (98-107); GLOMERULAR FILTRATION RATE > 60.0 (>60); GLUCOSE, FASTING 202 MG/DL (70-100); SODIUM LEVEL 137 MEQ/L (136-145)
[2021-04-16 14:59] LABS: MALB URINE SIEMENS 20.6 MG/L; MAU/CREAT RATIO 7.3 MCG/MG (0.0-30.0)
[2021-04-16 15:23] LABS: HEMOGLOBIN A1c 10.1 %
== END ==
LOC: M SFHCPLAZ 12:44
PROVIDERS: ATTEND Student in an Organized Health Care Education/Training Program
DX: E10.65 Type 1 diabetes mellitus with hyperglycemia (principal)

== ENCOUNTER → 2021-04-29 | Outpatient (REF) | payer OTHER | LOC: M SFHCWAGY 10:09 | PROVIDERS: ATTEND Nurse Practitioner Women's Health | DX: Z12.4 Encounter for screening for malignant neoplasm of cervix (principal) ==

== ENCOUNTER → 2021-05-07 | Outpatient (REF) | payer OTHER | LOC: M SFHCWAGY 17:05 | PROVIDERS: ATTEND Obstetrics & Gynecology | DX: N91.2 Amenorrhea, unspecified (principal) ==

== ENCOUNTER → 2021-07-15 | Outpatient (CLI) | payer OTHER ==
[2021-07-15 17:36] LABS: HEMATOCRIT 40.1 % (36.0-47.0); HEMOGLOBIN 13.4 g/dl (12.0-15.5); MEAN CORPUSCULAR HEMOGLOBIN 28.6 pg (27.0-33.0); MEAN CORPUSCULAR HGB CONC 33.4 g/dl (32.0-36.5); MEAN CORPUSCULAR VOLUME 85.7 fl (80.0-96.0); PLATELET COUNT, AUTOMATED 355 10^3/uL (150-450); RED BLOOD COUNT 4.68 10^6/uL (4.00-5.40); WHITE BLOOD COUNT 10.1 10^3/uL (4.0-10.0)
[2021-07-15 18:30] LABS: BLOOD UREA NITROGEN 14 MG/DL (7-18); CARBON DIOXIDE LEVEL 27 MEQ/L (21-32); CHLORIDE LEVEL 104 MEQ/L (98-107); CREATININE FOR GFR 0.81 MG/DL (0.55-1.30); GLOMERULAR FILTRATION RATE > 60.0 (>60); GLUCOSE, FASTING 244 MG/DL (70-100); POTASSIUM SERUM 4.2 MEQ/L (3.5-5.1); SODIUM LEVEL 137 MEQ/L (136-145)
[2021-07-16 10:45] LABS: APPEARANCE, URINE CLEAR (CLEAR); BACTERIA, URINE AUTO NEGATIVE (NEGATIVE); BILIRUBIN, URINE AUTO NEGATIVE (NEGATIVE); BLOOD, URINE BLOOD NEGATIVE (NEGATIVE); COLOR, URINE YELLOW (YELLOW); GLUCOSE, URINE (UA) AUTO 3+ mg/dL (NEGATIVE); KETONE, URINE AUTO 2+ mg/dL (NEGATIVE); LEUKOCYTE ESTERASE, URINE AUTO NEGATIVE (NEGATIVE); MUCUS, URINE SMALL (NEGATIVE); NITRITE, URINE AUTO NEGATIVE (NEGATIVE); PROTEIN, URINE AUTO NEGATIVE (NEGATIVE); RBC, URINE AUTO 1 /HPF (0-3); SPECIFIC GRAVITY URINE AUTO 1.033 (1.002-1.035); SQUAMOUS EPITHELIAL CELL UR AU 1 /HPF (0-6); UROBILINOGEN, URINE AUTO 0.2 mg/dL (0.0-2.0); WBC, URINE AUTO 2 /HPF (0-3)
== END ==
LOC: M LAB 16:58
PROVIDERS: ATTEND Family Medicine
DX: R11.2 Nausea with vomiting, unspecified (principal)

== ENCOUNTER → 2022-02-13 | Outpatient (REF) | payer OTHER ==
[~2022-02-13] MED LIST changes: +ALBU2.5V10 INH; +ALBU2.5V10 NEB; -ALBU83IN INH; -ALBU83IN NEB; +MAGICMW SSP; -ZONI100C17 PO; +ZONI100C67 PO
== END ==
LOC: M LAB REF 11:25
PROVIDERS: ATTEND Physician Assistant
DX: J02.9 Acute pharyngitis, unspecified (principal)

== ENCOUNTER 2022-02-14 02:50 | Emergency (ER) | payer OTHER ==
[~2022-02-14] VITALS: Ht 175.3 cm; Wt 87.7 kg
[~2022-02-14 02:50] MED LIST changes: -MAGICMW SSP
[2022-02-14] MEDS ORDERED: NS 1,000 ML IV ONE (03:15)
[2022-02-14 03:46] LABS: VENOUS BASE EXCESS 1.4 (-2.0-2.0); VENOUS HCO3 26.6 MEQ/L (23.0-27.0); VENOUS O2 SATURATION 88.9 % (60.0-80.0); VENOUS PARTIAL PRESSURE CO2 44.1 mmHg (38.0-50.0); VENOUS PARTIAL PRESSURE O2 52.9 mmHg (30.0-50.0); VENOUS PH 7.398 UNITS (7.330-7.430); VENOUS STANDARD HCO3 25.5 MEQ/L; VENOUS TOTAL CO2 27.9 MEQ/L (24.0-28.0)
[2022-02-14 03:50] LABS: BASO # 0.1 10^3/uL (0.0-0.2); BASO % 0.4 % (0.0-1.0); EOS # 0.1 10^3/uL (0.0-0.5); HEMATOCRIT 39.5 % (36.0-47.0); HEMOGLOBIN 13.1 g/dl (12.0-15.5); LYMPH # 1.1 10^3/uL (1.5-5.0); LYMPH % 8.1 % (24.0-44.0); MEAN CORPUSCULAR HEMOGLOBIN 29.1 pg (27.0-33.0); MEAN CORPUSCULAR HGB CONC 33.2 g/dl (32.0-36.5); MEAN CORPUSCULAR VOLUME 87.8 fl (80.0-96.0); MONO # 0.8 10^3/uL (0.0-0.8); MONO % 5.8 % (2.0-8.0); NEUTROPHILS # 11.3 10^3/uL (1.5-8.5); NEUTROPHILS % 84.3 % (36.0-66.0); PLATELET COUNT, AUTOMATED 296 10^3/uL (150-450); WHITE BLOOD COUNT 13.4 10^3/uL (4.0-10.0)
[2022-02-14] MEDS ORDERED: ACETAMINOPHEN TAB 650MG DOSE (2X325MG) PO ONE (04:10)
[2022-02-14 04:17] LABS: OSMOLALITY SERUM 290 MOSM/KG (275-295)
[2022-02-14 04:30] LABS: ACETONE/KETONE 3.82 MG/DL (<2.81); ALBUMIN 3.6 GM/DL (3.2-5.2); ALT/SGPT 37 U/L (12-78); BILIRUBIN,DIRECT 0.4 MG/DL (0.0-0.2); BILIRUBIN,TOTAL 1.3 MG/DL (0.2-1.0); BLOOD UREA NITROGEN 7 MG/DL (7-18); CALCIUM LEVEL 8.9 MG/DL (8.5-10.1); CARBON DIOXIDE LEVEL 27 MEQ/L (21-32); CHLORIDE LEVEL 104 MEQ/L (98-107); GLOMERULAR FILTRATION RATE > 60.0 (>60); GLUCOSE, FASTING 287 MG/DL (70-100); LIPASE 72 U/L (73-393); SODIUM LEVEL 138 MEQ/L (136-145); TOTAL PROTEIN 6.9 GM/DL (6.4-8.2)
[2022-02-14] MEDS ORDERED: MAGICMW SSP (05:59)
[2022-02-14] MEDS ORDERED: LIDOCAINE VISCOUS 2% SOLN 15ML UDC SS ONE (06:00)
[2022-02-14 06:30] VITALS: BP 121/60
== END 2022-02-14 06:50 | disposition home or self-care (01) ==
LOC: M ED 02:50
DX: J02.9 Acute pharyngitis, unspecified (principal); R50.9 Fever, unspecified; E10.9 Type 1 diabetes mellitus without complications; Z88.0 Allergy status to penicillin; Z88.1 Allergy status to other antibiotic agents; Z88.2 Allergy status to sulfonamides; Z79.4 Long term (current) use of insulin; Z79.899 Other long term (current) drug therapy

== ENCOUNTER → 2022-04-17 | Outpatient (REF) | payer OTHER ==
[~2022-04-17] MED LIST changes: +MAGICMW SSP; -MICR1TAB16 PO; +NORE1TAB86 PO
== END ==
LOC: M LAB REF 16:59
PROVIDERS: ATTEND Physician Assistant
DX: N91.2 Amenorrhea, unspecified (principal)

== ENCOUNTER 2022-04-21 11:13 | Emergency (ER) | payer OTHER ==
[~2022-04-21] VITALS: Ht 172.7 cm; Wt 87.0 kg
[2022-04-21 12:46] LABS: BASO # 0.1 10^3/uL (0.0-0.2); BASO % 1.2 % (0.0-1.0); EOS # 0.3 10^3/uL (0.0-0.5); EOS % 4.3 % (0.0-3.0); HEMOGLOBIN 14.1 g/dl (12.0-15.5); LYMPH # 1.9 10^3/uL (1.5-5.0); LYMPH % 32.6 % (24.0-44.0); MEAN CORPUSCULAR HEMOGLOBIN 28.8 pg (27.0-33.0); MEAN CORPUSCULAR HGB CONC 33.6 g/dl (32.0-36.5); MEAN CORPUSCULAR VOLUME 85.9 fl (80.0-96.0); MONO # 0.3 10^3/uL (0.0-0.8); MONO % 5.4 % (2.0-8.0); NEUTROPHILS # 3.3 10^3/uL (1.5-8.5); NEUTROPHILS % 56.3 % (36.0-66.0); PLATELET COUNT, AUTOMATED 338 10^3/uL (150-450); RED BLOOD COUNT 4.89 10^6/uL (4.00-5.40); WHITE BLOOD COUNT 5.8 10^3/uL (4.0-10.0)
[2022-04-21 14:36] LABS: BLOOD UREA NITROGEN 13 MG/DL (7-18); CALCIUM LEVEL 9.4 MG/DL (8.5-10.1); CARBON DIOXIDE LEVEL 27 MEQ/L (21-32); CHLORIDE LEVEL 103 MEQ/L (98-107); CREATININE FOR GFR 0.81 MG/DL (0.55-1.30); GLOMERULAR FILTRATION RATE > 60.0 (>60); GLUCOSE, FASTING 120 MG/DL (70-100); POTASSIUM SERUM 3.9 MEQ/L (3.5-5.1); SODIUM LEVEL 137 MEQ/L (136-145)
[2022-04-21 14:45] LABS: HCG, SERUM QUALITATIVE NEGATIVE (NEGATIVE)
[2022-04-21] MEDS ORDERED: NS 1,000 ML IV ONE (16:00)
[2022-04-21] MEDS ORDERED: ISOVUE-370 76% 100ML VIAL As Ordered ONE (16:02)
[2022-04-21] MEDS ORDERED: ONDANSETRON 4MG 2ML VIAL IV ONE (16:05)
[2022-04-21] MEDS ORDERED: MORPHINE 4 MG/ML 1ML VIAL/SYRINGE IV ONE (16:05)
[2022-04-21 16:38] LABS: ALBUMIN 4.2 GM/DL (3.2-5.2); ALT/SGPT 25 U/L (12-78); BILIRUBIN,DIRECT 0.3 MG/DL (0.0-0.2); BILIRUBIN,TOTAL 1.2 MG/DL (0.2-1.0); LIPASE 93 U/L (73-393); TOTAL PROTEIN 7.4 GM/DL (6.4-8.2)
[2022-04-21] MEDS ORDERED: IBUP80TA PO (21:29)
[2022-04-21] MEDS ORDERED: KETOROLAC 30 MG/ML 1ML VIAL IV ONE (21:30)
[2022-04-21 21:39] VITALS: BP 118/73
[2022-04-21 21:41] LABS: GC DNA AMPLIFICATION NEGATIVE (NEGATIVE)
== END 2022-04-21 21:40 | disposition home or self-care (01) ==
LOC: M ED 11:13
DX: T83.32XA Displacement of intrauterine contraceptive device, initial encounter (principal); N92.6 Irregular menstruation, unspecified; R10.2 Pelvic and perineal pain; F41.9 Anxiety disorder, unspecified; G43.909 Migraine, unspecified, not intractable, without status migrainosus; K21.9 Gastro-esophageal reflux disease without esophagitis; Z88.0 Allergy status to penicillin; Z88.1 Allergy status to other antibiotic agents; Z88.2 Allergy status to sulfonamides; Z79.899 Other long term (current) drug therapy
CPT/HCPCS: 74177; 76705; 76830; 76856; 80048; 80076; 81000; 81015; 83690; 84703; 85025; 86850; 86900; 86901; 87210; 87661; 87810; 87850; 93976; 96361; 96374; 96375; 99284; J1885; J2270; J2405

== ENCOUNTER → 2022-11-17 | Outpatient (CLI) | payer OTHER ==
[2022-11-17 18:18] LABS: BASO # 0.1 10^3/uL (0.0-0.2); BASO % 0.8 % (0.0-1.0); EOS # 0.2 10^3/uL (0.0-0.5); EOS % 3.1 % (0.0-3.0); HEMATOCRIT 39.3 % (36.0-47.0); HEMOGLOBIN 13.1 g/dl (12.0-15.5); LYMPH # 1.8 10^3/uL (1.5-5.0); LYMPH % 28.6 % (24.0-44.0); MEAN CORPUSCULAR HEMOGLOBIN 29.4 pg (27.0-33.0); MEAN CORPUSCULAR HGB CONC 33.3 g/dl (32.0-36.5); MEAN CORPUSCULAR VOLUME 88.1 fl (80.0-96.0); MONO # 0.3 10^3/uL (0.0-0.8); MONO % 5.3 % (2.0-8.0); NEUTROPHILS % 61.9 % (36.0-66.0); PLATELET COUNT, AUTOMATED 324 10^3/uL (150-450); RED BLOOD COUNT 4.46 10^6/uL (4.00-5.40); WHITE BLOOD COUNT 6.4 10^3/uL (4.0-10.0)
[2022-11-17 18:44] LABS: CREATININE, URINE 56.3 MG/DL
[2022-11-17 18:45] LABS: MALB URINE SIEMENS < 3.0 MG/L; MAU/CREAT RATIO 5.3 MCG/MG (0.0-30.0)
[2022-11-17 18:46] LABS: ALBUMIN 3.9 G/DL (3.2-5.2); ALKALINE PHOSPHATASE 70 U/L (46-116); ALT/SGPT 26 U/L (7.0-40); AST/SGOT 33 U/L (<34); BILIRUBIN,TOTAL 1.1 MG/DL (0.3-1.2); BLOOD UREA NITROGEN 11 MG/DL (9-23); CALCIUM LEVEL 8.3 MG/DL (8.5-10.1); CARBON DIOXIDE LEVEL 28 MMOL/L (20-31); CHLORIDE LEVEL 101 MMOL/L (98-107); CHOLESTEROL LEVEL 181 MG/DL (<200); CHOLESTEROL RISK RATIO 2.56 (<5); CREATININE FOR GFR 0.88 MG/DL (0.55-1.30); FERRITIN 77.9 NG/ML (7.3-270.7); FOLLICLE STIMULATING HORMONE 6.8 mIU/ML; GLOMERULAR FILTRATION RATE > 60.0 (>60); GLUCOSE, FASTING 206 MG/DL (60-100); HDL CHOLESTEROL 70.5 MG/DL (>40); IRON (FE) 59 UG/DL (50-170); LDL CHOLESTEROL 99.7 MG/DL (<100); NON-HDL-C 110.5 MG/DL; PERCENT SATURATION 19.7 % (13.2-45.0); POTASSIUM SERUM 4.5 MMOL/L (3.5-5.1); SODIUM LEVEL 136 MMOL/L (136-145); TOTAL 25(OH) VITAMIN D 40.7 NG/ML (20.0-100.0); TOTAL IRON BINDING CAPACITY 299 UG/DL (250-425); TOTAL PROTEIN 6.7 G/DL (5.7-8.2); TRIGLYCERIDES LEVEL 54 MG/DL (<150)
[2022-11-17 18:47] LABS: LUTEINIZING HORMONE 2.7 mIU/ML; TESTOSTERONE 42 NG/DL (14-76)
[2022-11-17 18:50] LABS: HEMOGLOBIN A1c 8.9 % (4.0-6.0)
== END ==
LOC: M PLALAB 15:02
PROVIDERS: ATTEND Student in an Organized Health Care Education/Training Program
DX: E10.65 Type 1 diabetes mellitus with hyperglycemia (principal); E55.9 Vitamin D deficiency, unspecified; N92.1 Excessive and frequent menstruation with irregular cycle

== ENCOUNTER 2023-04-24 10:38 | Emergency (ER) | payer OTHER ==
[~2023-04-24] VITALS: Ht 175.3 cm; Wt 87.6 kg
[2023-04-24] MEDS ORDERED: OCUV1CHW PO (10:54)
[2023-04-24] MEDS ORDERED: KETOROLAC 30 MG/ML 1ML VIAL IV ONE (11:25)
[2023-04-24] MEDS ORDERED: ONDANSETRON 4MG 2ML VIAL IV ONE (11:25)
[2023-04-24 12:06] LABS: VENOUS BASE EXCESS -0.4 (-2.0-2.0); VENOUS HCO3 24.3 MMOL/L (23.0-27.0); VENOUS O2 SATURATION 86.8 % (60.0-80.0); VENOUS PARTIAL PRESSURE CO2 39.9 mmHg (38.0-50.0); VENOUS PARTIAL PRESSURE O2 48.1 mmHg (30.0-50.0); VENOUS PH 7.402 UNITS (7.330-7.430); VENOUS STANDARD HCO3 23.9 MMOL/L; VENOUS TOTAL CO2 25.5 MMOL/L (24.0-28.0)
[2023-04-24 12:08] LABS: BASO # 0.1 10^3/uL (0.0-0.2); BASO % 1.2 % (0.0-1.0); EOS # 0.1 10^3/uL (0.0-0.5); EOS % 1.8 % (0.0-3.0); HEMATOCRIT 37.4 % (36.0-47.0); HEMOGLOBIN 12.4 g/dl (12.0-15.5); LYMPH # 1.8 10^3/uL (1.5-5.0); LYMPH % 36.3 % (24.0-44.0); MEAN CORPUSCULAR HEMOGLOBIN 29.2 pg (27.0-33.0); MEAN CORPUSCULAR HGB CONC 33.2 g/dl (32.0-36.5); MONO # 0.3 10^3/uL (0.0-0.8); MONO % 6.4 % (2.0-8.0); NEUTROPHILS # 2.7 10^3/uL (1.5-8.5); NEUTROPHILS % 54.1 % (36.0-66.0); PLATELET COUNT, AUTOMATED 291 10^3/uL (150-450); RED BLOOD COUNT 4.25 10^6/uL (4.00-5.40)
[2023-04-24 12:18] LABS: INR 1.05; PARTIAL THROMBOPLASTIN TIME 24.7 SECONDS (24.8-34.2); PROTHROMBIN TIME 13.4 SECONDS (12.5-14.5)
[2023-04-24 12:26] LABS: CK-MB VALUE MASS < 1.0 NG/ML (<3.6)
[2023-04-24 12:27] LABS: LIPASE 23 U/L (12-53)
[2023-04-24 12:28] LABS: CPK CREATINE PHOSPHOKINASE 61 U/L (34-145); MB/CK RELATIVE INDEX 1.63 (< OR =4)
[2023-04-24 12:29] LABS: ALBUMIN 3.2 G/DL (3.2-5.2); ALKALINE PHOSPHATASE 67 U/L (46-116); ALT/SGPT 26 U/L (7.0-40); AST/SGOT 20 U/L (<34); BILIRUBIN,DIRECT 0.7 MG/DL (<0.4); BLOOD UREA NITROGEN 15 MG/DL (9-23); CALCIUM LEVEL 8.4 MG/DL (8.5-10.1); CARBON DIOXIDE LEVEL 28 MMOL/L (20-31); CHLORIDE LEVEL 108 MMOL/L (98-107); CREATININE FOR GFR 0.73 MG/DL (0.55-1.30); GLOMERULAR FILTRATION RATE > 60.0 (>60); GLUCOSE, FASTING 108 MG/DL (60-100); MAGNESIUM LEVEL 1.6 MG/DL (1.8-2.4); PHOSPHORUS LEVEL 2.7 MG/DL (2.5-4.9); POTASSIUM SERUM 3.6 MMOL/L (3.5-5.1); SODIUM LEVEL 142 MMOL/L (136-145); TOTAL PROTEIN 5.8 G/DL (5.7-8.2)
[2023-04-24 12:30] LABS: ACETONE/KETONE 0.55 MMOL/L (0.02-0.27)
[2023-04-24 12:31] LABS: FREE T4 0.95 NG/DL (0.89-1.76); THYROID STIMULATING HORMONE 0.606 uIU/ML (0.55-4.78)
[2023-04-24 12:38] LABS: HCG, SERUM QUALITATIVE NEGATIVE (NEGATIVE)
[2023-04-24] MEDS ORDERED: ISOVUE-370 76% 100ML VIAL As Ordered ONE (12:54)
[2023-04-24 13:04] LABS: OSMOLALITY SERUM 289 MOSM/KG (275-295)
[2023-04-24 13:22] LABS: HEMOGLOBIN A1c 10.4 % (4.0-6.0)
[2023-04-24 17:03] LABS: CHLAMYDIA DNA AMPLIFICATION NEGATIVE (NEGATIVE); GC DNA AMPLIFICATION NEGATIVE (NEGATIVE)
[2023-04-24] MEDS ORDERED: IBUP-1022 PO (17:55)
[2023-04-24 18:23] VITALS: BP 122/57; TEMP 99.1; O2SAT 99
== END 2023-04-24 18:27 | disposition home or self-care (01) ==
LOC: M ED 10:38
DX: E10.65 Type 1 diabetes mellitus with hyperglycemia (principal); N94.89 Other specified conditions associated with female genital organs and menstrual cycle; K21.9 Gastro-esophageal reflux disease without esophagitis; F41.9 Anxiety disorder, unspecified; Z88.0 Allergy status to penicillin; Z88.1 Allergy status to other antibiotic agents; Z88.2 Allergy status to sulfonamides; Z79.4 Long term (current) use of insulin
CPT/HCPCS: 74177; 76830; 76856; 80047; 80048; 80076; 81001; 82010; 82550; 82553; 82803; 83036; 83605; 83690; 83735; 83880; 83930; 84100; 84439; 84443; 84703; 85025; 85610; 85730; 87040; 87661; 87810; 87850; 93005; 93976; 96374; 99284; J1885; Q9967

== ENCOUNTER 2023-06-29 11:53 | Emergency (ER) | payer OTHER ==
[~2023-06-29] VITALS: Ht 175.3 cm; Wt 83.2 kg
[~2023-06-29 11:53] MED LIST changes: +IBUP-1022 PO; +INSU100V19 SC; -INSURSD SC; +OCUV1CHW PO
[2023-06-29] MEDS ORDERED: INSU100V6 (12:11)
[2023-06-29] MEDS ORDERED: NS 1,000 ML IV ONE ×2 (13:30→14:30)
[2023-06-29] MEDS ORDERED: ONDANSETRON 4MG 2ML VIAL IV ONE (13:30)
[2023-06-29 13:31] LABS: VENOUS BASE EXCESS 2.6 (-2.0-2.0); VENOUS HCO3 29.1 MMOL/L (23.0-27.0); VENOUS O2 SATURATION 60.3 % (60.0-80.0); VENOUS PARTIAL PRESSURE CO2 51.8 mmHg (38.0-50.0); VENOUS PH 7.367 UNITS (7.330-7.430); VENOUS STANDARD HCO3 25.7 MMOL/L; VENOUS TOTAL CO2 30.7 MMOL/L (24.0-28.0)
[2023-06-29 13:35] LABS: BASO % 0.6 % (0.0-1.0); EOS # 0.1 10^3/uL (0.0-0.5); EOS % 1.6 % (0.0-3.0); HEMATOCRIT 43.6 % (36.0-47.0); HEMOGLOBIN 14.6 g/dl (12.0-15.5); LYMPH % 31.2 % (24.0-44.0); MEAN CORPUSCULAR HGB CONC 33.5 g/dl (32.0-36.5); MEAN CORPUSCULAR VOLUME 86.5 fl (80.0-96.0); MONO # 0.3 10^3/uL (0.0-0.8); MONO % 4.4 % (2.0-8.0); PLATELET COUNT, AUTOMATED 341 10^3/uL (150-450); RED BLOOD COUNT 5.04 10^6/uL (4.00-5.40); WHITE BLOOD COUNT 6.4 10^3/uL (4.0-10.0)
[2023-06-29] MEDS ORDERED: ACETAMINOPHEN 500 MG TAB PO ONE (13:55)
[2023-06-29 13:56] LABS: HEMOGLOBIN A1c 10.6 % (4.0-6.0)
[2023-06-29 14:01] LABS: LIPASE 41 U/L (12-53)
[2023-06-29 14:03] LABS: ALKALINE PHOSPHATASE 84 U/L (46-116); ALT/SGPT 14 U/L (7.0-40); AST/SGOT 8 U/L (<34); BILIRUBIN,DIRECT 0.4 MG/DL (<0.4); BILIRUBIN,TOTAL 1.4 MG/DL (0.3-1.2); BLOOD UREA NITROGEN 11 MG/DL (9-23); CALCIUM LEVEL 9.1 MG/DL (8.5-10.1); CARBON DIOXIDE LEVEL 29 MMOL/L (20-31); CHLORIDE LEVEL 103 MMOL/L (98-107); CREATININE FOR GFR 0.69 MG/DL (0.55-1.30); GLOMERULAR FILTRATION RATE > 60.0 (>60); GLUCOSE, FASTING 213 MG/DL (60-100); MAGNESIUM LEVEL 1.8 MG/DL (1.8-2.4); OSMOLALITY SERUM 298 MOSM/KG (275-295); PHOSPHORUS LEVEL 3.5 MG/DL (2.5-4.9); POTASSIUM SERUM 3.7 MMOL/L (3.5-5.1); SODIUM LEVEL 137 MMOL/L (136-145); TOTAL PROTEIN 7.1 G/DL (5.7-8.2)
[2023-06-29 14:04] LABS: ACETONE/KETONE 0.22 MMOL/L (0.02-0.27)
[2023-06-29 14:10] LABS: HCG, SERUM QUALITATIVE NEGATIVE (NEGATIVE)
[2023-06-29 15:58] VITALS: BP 159/87; TEMP 96.4; O2SAT 94
== END 2023-06-29 16:02 | disposition home or self-care (01) ==
LOC: M ED 11:53
DX: B34.1 Enterovirus infection, unspecified (principal); B34.8 Other viral infections of unspecified site; E10.65 Type 1 diabetes mellitus with hyperglycemia; G43.909 Migraine, unspecified, not intractable, without status migrainosus; F10.10 Alcohol abuse, uncomplicated; Z88.0 Allergy status to penicillin; Z88.1 Allergy status to other antibiotic agents; Z88.2 Allergy status to sulfonamides; Z88.8 Allergy status to other drugs, medicaments and biological substances; Z79.4 Long term (current) use of insulin
CPT/HCPCS: 80048; 80076; 81001; 82010; 82803; 83036; 83690; 83735; 83930; 84100; 84703; 85025; 87486; 87581; 87633; 87798; 96361; 96374; 99283; J2405

== ENCOUNTER 2023-08-02 19:04 | Emergency (ER) | payer OTHER ==
[~2023-08-02] VITALS: Ht 175.3 cm; Wt 80.5 kg
[~2023-08-02 19:04] MED LIST changes: +INSU100V6
[2023-08-02 20:22] LABS: VENOUS BASE EXCESS 1.2 (-2.0-2.0); VENOUS HCO3 22.6 MMOL/L (23.0-27.0); VENOUS PARTIAL PRESSURE CO2 27.7 mmHg (38.0-50.0); VENOUS PARTIAL PRESSURE O2 32.2 mmHg (30.0-50.0); VENOUS PH 7.529 UNITS (7.330-7.430); VENOUS STANDARD HCO3 24.8 MMOL/L; VENOUS TOTAL CO2 23.4 MMOL/L (24.0-28.0)
[2023-08-02 20:28] LABS: BASO # 0.1 10^3/uL (0.0-0.2); BASO % 1.3 % (0.0-1.0); EOS # 0.2 10^3/uL (0.0-0.5); EOS % 3.1 % (0.0-3.0); HEMATOCRIT 35.2 % (36.0-47.0); HEMOGLOBIN 12.1 g/dl (12.0-15.5); LYMPH # 2.5 10^3/uL (1.5-5.0); LYMPH % 46.4 % (24.0-44.0); MEAN CORPUSCULAR HEMOGLOBIN 29.2 pg (27.0-33.0); MEAN CORPUSCULAR HGB CONC 34.4 g/dl (32.0-36.5); MEAN CORPUSCULAR VOLUME 84.8 fl (80.0-96.0); MONO # 0.4 10^3/uL (0.0-0.8); MONO % 6.4 % (2.0-8.0); NEUTROPHILS # 2.3 10^3/uL (1.5-8.5); NEUTROPHILS % 42.6 % (36.0-66.0); PLATELET COUNT, AUTOMATED 308 10^3/uL (150-450); RED BLOOD COUNT 4.15 10^6/uL (4.00-5.40); WHITE BLOOD COUNT 5.5 10^3/uL (4.0-10.0)
[2023-08-02 20:34] LABS: VENOUS O2 SATURATION 77.5 % (60.0-80.0)
[2023-08-02] MEDS: NS 1,000 ML IV ONE ×2 (20:36→22:59)
[2023-08-02 20:58] LABS: LIPASE 36 U/L (12-53)
[2023-08-02 21:01] LABS: ALBUMIN 3.3 G/DL (3.2-5.2); ALKALINE PHOSPHATASE 72 U/L (46-116); ALT/SGPT 25 U/L (7.0-40); AST/SGOT 35 U/L (<34); BILIRUBIN,DIRECT 0.3 MG/DL (<0.4); BILIRUBIN,TOTAL 0.9 MG/DL (0.3-1.2); BLOOD UREA NITROGEN 14 MG/DL (9-23); CALCIUM LEVEL 8.5 MG/DL (8.5-10.1); CARBON DIOXIDE LEVEL 25 MMOL/L (20-31); CHLORIDE LEVEL 106 MMOL/L (98-107); CREATININE FOR GFR 0.95 MG/DL (0.55-1.30); GLOMERULAR FILTRATION RATE > 60.0 (>60); GLUCOSE, FASTING 346 MG/DL (60-100); POTASSIUM SERUM 3.7 MMOL/L (3.5-5.1); SODIUM LEVEL 137 MMOL/L (136-145); TOTAL PROTEIN 5.8 G/DL (5.7-8.2)
[2023-08-02 21:06] LABS: ETHYL ALCOHOL (ETHANOL) 0.003 % (0.000-0.010)
[2023-08-02 21:07] LABS: HEMOGLOBIN A1c 10.6 % (4.0-6.0)
[2023-08-02 21:29] LABS: ACETONE/KETONE 0.36 MMOL/L (0.02-0.27)
[2023-08-02 23:07] LABS: CPK CREATINE PHOSPHOKINASE 1000 U/L (34-145)
[2023-08-03 00:30] VITALS: BP 103/61
[2023-08-03 00:34] VITALS: TEMP 98.5; O2SAT 98
== END 2023-08-03 02:20 | disposition home or self-care (01) ==
LOC: M ED 19:04 → EDBD 19:04 → M ED 08-03 02:20
DX: R53.81 Other malaise (principal); E10.65 Type 1 diabetes mellitus with hyperglycemia; R74.8 Abnormal levels of other serum enzymes; F10.10 Alcohol abuse, uncomplicated; Z88.0 Allergy status to penicillin; Z88.1 Allergy status to other antibiotic agents; Z88.2 Allergy status to sulfonamides; Z88.8 Allergy status to other drugs, medicaments and biological substances; Z79.899 Other long term (current) drug therapy

== ENCOUNTER 2023-08-04 11:00 | Emergency (ER) | payer OTHER ==
[~2023-08-04] VITALS: Ht 175.3 cm; Wt 80.5 kg
[2023-08-04 11:40] LABS: BASO % 0.7 % (0.0-1.0); EOS # 0.2 10^3/uL (0.0-0.5); EOS % 3.4 % (0.0-3.0); HEMATOCRIT 40.2 % (36.0-47.0); HEMOGLOBIN 13.7 g/dl (12.0-15.5); LYMPH # 1.6 10^3/uL (1.5-5.0); LYMPH % 28.2 % (24.0-44.0); MEAN CORPUSCULAR HEMOGLOBIN 29.3 pg (27.0-33.0); MEAN CORPUSCULAR HGB CONC 34.1 g/dl (32.0-36.5); MEAN CORPUSCULAR VOLUME 86.1 fl (80.0-96.0); MONO # 0.4 10^3/uL (0.0-0.8); MONO % 6.4 % (2.0-8.0); NEUTROPHILS # 3.5 10^3/uL (1.5-8.5); PLATELET COUNT, AUTOMATED 328 10^3/uL (150-450); RED BLOOD COUNT 4.67 10^6/uL (4.00-5.40); WHITE BLOOD COUNT 5.8 10^3/uL (4.0-10.0)
[2023-08-04 12:07] LABS: BLOOD UREA NITROGEN 17 MG/DL (9-23); CALCIUM LEVEL 9.3 MG/DL (8.5-10.1); CARBON DIOXIDE LEVEL 22 MMOL/L (20-31); CHLORIDE LEVEL 100 MMOL/L (98-107); CK-MB VALUE MASS < 1.0 NG/ML (<3.6); CPK CREATINE PHOSPHOKINASE 459 U/L (34-145); CREATININE FOR GFR 0.82 MG/DL (0.55-1.30); GLOMERULAR FILTRATION RATE > 60.0 (>60); GLUCOSE, FASTING 357 MG/DL (60-100); MB/CK RELATIVE INDEX 0.21 (< OR =4); POTASSIUM SERUM 3.9 MMOL/L (3.5-5.1); SODIUM LEVEL 133 MMOL/L (136-145)
[2023-08-04 12:27] LABS: ABG BASE EXCESS -0.7 (-2.0-2.0); ABG HCO3 18.7 MMOL/L (22.0-26.0); ABG O2 SATURATION 99.3 % (95.0-99.0); ABG PARTIAL PRESSURE O2 127.5 mmHg (75.0-100.0); ABG STANDARD HCO3 23.9 MMOL/L. (22.0-26.0); ABG TOTAL CO2 19.3 MMOL/L (22.0-29.0)
[2023-08-04 12:33] LABS: ABG pH (ARTERIAL) 7.616 UNITS (7.350-7.450)
[2023-08-04 12:34] LABS: ABG PARTIAL PRESSURE CO2 18.8 mmHg (35.0-45.0)
[2023-08-04] MEDS: LORazepam 2 MG/ML 1ML VIAL IV STA (12:44)
[2023-08-04 12:57] LABS: CK-MB VALUE MASS < 1.0 NG/ML (<3.6)
[2023-08-04 12:58] LABS: CPK CREATINE PHOSPHOKINASE 347 U/L (34-145); MB/CK RELATIVE INDEX 0.28 (< OR =4)
[2023-08-04 13:38] LABS: HEMOGLOBIN A1c 10.7 % (4.0-6.0)
[2023-08-04 14:38] VITALS: BP 116/66; TEMP 97.7; O2SAT 99
== END 2023-08-04 15:07 | disposition home or self-care (01) ==
LOC: EDBD 11:00 → M ED 11:00
DX: R07.9 Chest pain, unspecified (principal); F43.0 Acute stress reaction; E10.9 Type 1 diabetes mellitus without complications; Z87.891 Personal history of nicotine dependence; Z86.16 Personal history of COVID-19; Z79.4 Long term (current) use of insulin
CPT/HCPCS: 36600; 71045; 80047; 80048; 82550; 82553; 82803; 83036; 84702; 85025; 93005; 93041; 94760; 96374; 99285; J2060

== ENCOUNTER → 2024-02-04 | Outpatient (REF) | payer OTHER ==
[~2024-02-04] MED LIST changes: +ONDA-282 PO; -ONDA4TAB6 PO
== END ==
LOC: M LAB REF 12:25
PROVIDERS: ATTEND Physician Assistant
DX: J02.9 Acute pharyngitis, unspecified (principal)

== ENCOUNTER → 2024-02-08 | Outpatient (CLI) | payer OTHER ==
[2024-02-08 13:36] LABS: BASO % 0.4 % (0.0-1.0); EOS # 0.1 10^3/uL (0.0-0.5); EOS % 1.1 % (0.0-3.0); HEMATOCRIT 39.5 % (36.0-47.0); HEMOGLOBIN 13.2 g/dl (12.0-15.5); LYMPH # 1.3 10^3/uL (1.5-5.0); LYMPH % 17.9 % (24.0-44.0); MEAN CORPUSCULAR HEMOGLOBIN 29.9 pg (27.0-33.0); MEAN CORPUSCULAR HGB CONC 33.4 g/dl (32.0-36.5); MEAN CORPUSCULAR VOLUME 89.4 fl (80.0-96.0); MONO # 0.8 10^3/uL (0.0-0.8); MONO % 11.1 % (2.0-8.0); NEUTROPHILS # 4.9 10^3/uL (1.5-8.5); NEUTROPHILS % 69.2 % (36.0-66.0); PLATELET COUNT, AUTOMATED 266 10^3/uL (150-450); RED BLOOD COUNT 4.42 10^6/uL (4.00-5.40); WHITE BLOOD COUNT 7.1 10^3/uL (4.0-10.0)
[2024-02-08 13:37] LABS: ALBUMIN 3.7 G/DL (3.2-5.2); ALKALINE PHOSPHATASE 84 U/L (46-116); ALT/SGPT 15 U/L (7.0-40); AST/SGOT 10 U/L (<34); BILIRUBIN,TOTAL 0.7 MG/DL (0.3-1.2); BLOOD UREA NITROGEN 7 MG/DL (9-23); CALCIUM LEVEL 8.7 MG/DL (8.5-10.1); CARBON DIOXIDE LEVEL 29 MMOL/L (20-31); CHLORIDE LEVEL 104 MMOL/L (98-107); CREATININE FOR GFR 0.77 MG/DL (0.55-1.30); GLOMERULAR FILTRATION RATE > 60.0 (>60); GLUCOSE, FASTING 247 MG/DL (60-100); POTASSIUM SERUM 4.3 MMOL/L (3.5-5.1); SODIUM LEVEL 137 MMOL/L (136-145); TOTAL PROTEIN 6.7 G/DL (5.7-8.2)
[2024-02-08 13:51] LABS: ERYTHROCYTE SEDIMENTATION RATE 40 mm/hr (0-20)
[2024-02-09 11:28] LABS: EBV VIRAL CAPSID AG IGM < 36.00 U/mL (<36.00)
== END ==
LOC: M PLALAB 09:19
PROVIDERS: ATTEND Pediatrics
DX: R50.9 Fever, unspecified (principal)

== ENCOUNTER → 2024-04-18 | Outpatient (REF) | payer OTHER ==
[~2024-04-18] MED LIST changes: +GABA-1172 PO; -GABA-282 PO; +NORE-30 PO; -NORE1TAB86 PO
== END ==
LOC: M LAB REF 12:33
PROVIDERS: ATTEND Pediatrics
DX: Z20.822 Contact with and (suspected) exposure to COVID-19 (principal)

== ENCOUNTER → 2024-05-16 | Outpatient (REF) | payer OTHER ==
[2024-05-16 14:39] LABS: APPEARANCE, URINE CLEAR (CLEAR); BACTERIA, URINE AUTO 1+ (NEGATIVE); BILIRUBIN, URINE AUTO NEGATIVE (NEGATIVE); BLOOD, URINE BLOOD NEGATIVE (NEGATIVE); COLOR, URINE YELLOW (YELLOW); GLUCOSE, URINE (UA) AUTO 2+ mg/dL (NEGATIVE); KETONE, URINE AUTO TRACE mg/dL (NEGATIVE); LEUKOCYTE ESTERASE, URINE AUTO NEGATIVE (NEGATIVE); NITRITE, URINE AUTO POSITIVE (NEGATIVE); PROTEIN, URINE AUTO NEGATIVE (NEGATIVE); RBC, URINE AUTO 1 /HPF (0-3); SPECIFIC GRAVITY URINE AUTO 1.011 (1.002-1.035); SQUAMOUS EPITHELIAL CELL UR AU 7 /HPF (0-6); WBC, URINE AUTO 8 /HPF (0-3)
== END ==
LOC: M LAB REF 12:27
PROVIDERS: ATTEND Pediatrics
DX: R30.0 Dysuria (principal)

== ENCOUNTER → 2024-05-17 | Outpatient (REF) | payer OTHER | LOC: M LAB REF 17:06 | PROVIDERS: ATTEND Pediatrics | DX: R30.0 Dysuria (principal) ==

== ENCOUNTER 2024-06-26 22:14 | Emergency (ER) | payer OTHER ==
[~2024-06-26] VITALS: Ht 175.3 cm; Wt 87.9 kg
[2024-06-26] MEDS ORDERED: HUMA100I3 SC (22:21)
[2024-06-27 01:22] LABS: KETONE, URINE AUTO RFX 2+ mg/dL (NEGATIVE); LEUKOCYTE ESTERASE UR AUTO RFX NEGATIVE (NEGATIVE); MUCUS, URINE RFX SMALL (NEGATIVE); NITRITE, URINE AUTO RFX NEGATIVE (NEGATIVE); RBC, URINE AUTO RFX 0 /HPF (0-3); SQUAM EPITHELIAL CELL UR AURFX 4 /HPF (0-6); WBC, URINE AUTO RFX 3 /HPF (0-3)
[2024-06-27 03:16] LABS: BASO % 0.4 % (0.0-1.0); EOS % 0.2 % (0.0-3.0); HEMATOCRIT 40.9 % (36.0-47.0); HEMOGLOBIN 13.8 g/dl (12.0-15.5); LYMPH # 1.2 10^3/uL (1.5-5.0); LYMPH % 12.8 % (24.0-44.0); MEAN CORPUSCULAR HEMOGLOBIN 29.2 pg (27.0-33.0); MEAN CORPUSCULAR HGB CONC 33.7 g/dl (32.0-36.5); MEAN CORPUSCULAR VOLUME 86.5 fl (80.0-96.0); MONO # 0.3 10^3/uL (0.0-0.8); MONO % 3.5 % (2.0-8.0); NEUTROPHILS # 7.7 10^3/uL (1.5-8.5); NEUTROPHILS % 82.9 % (36.0-66.0); PLATELET COUNT, AUTOMATED 316 10^3/uL (150-450); RED BLOOD COUNT 4.73 10^6/uL (4.00-5.40); WHITE BLOOD COUNT 9.2 10^3/uL (4.0-10.0)
[2024-06-27 03:50] LABS: ALBUMIN 4.2 G/DL (3.2-5.2); ALKALINE PHOSPHATASE 71 U/L (35-104); ALT/SGPT 22 U/L (7.0-40); AST/SGOT 24 U/L (<34); BILIRUBIN,TOTAL 2.3 MG/DL (0.3-1.2); BLOOD UREA NITROGEN 20 MG/DL (9-23); CALCIUM LEVEL 8.8 MG/DL (8.5-10.1); CARBON DIOXIDE LEVEL 26 MMOL/L (20-31); CHLORIDE LEVEL 105 MMOL/L (98-107); GLOMERULAR FILTRATION RATE > 60.0 (>60); GLUCOSE, FASTING 182 MG/DL (60-100); POTASSIUM SERUM 4.7 MMOL/L (3.5-5.1); SODIUM LEVEL 141 MMOL/L (136-145)
[2024-06-27 03:51] LABS: ACETONE/KETONE 1.42 MMOL/L (0.02-0.27)
[2024-06-27 06:54] LABS: LIPASE 21 U/L (12-53)
[2024-06-27] MEDS: NS (Normal Saline) 0.9% 1,000 ML IV ONE (06:59)
[2024-06-27] MEDS: ONDANSETRON 4MG 2ML VIAL IV ONE (06:59)
[2024-06-27] MEDS ORDERED: ISOVUE-370 76% 100ML VIAL As Ordered ONE (07:29)
[2024-06-27] MEDS: METOCLOPRAMIDE INJ 10MG/2ML VIAL IV ONE (11:10)
[2024-06-27] MEDS: KETOROLAC 30 MG/ML 1ML VIAL IV ONE (11:10)
[2024-06-27] MEDS ORDERED: ONDA-282 PO (13:19)
[2024-06-27 13:33] VITALS: BP 102/55; TEMP 97.8; O2SAT 100
== END 2024-06-27 13:42 | disposition home or self-care (01) ==
LOC: M ED 22:14
DX: R10.9 Unspecified abdominal pain (principal); R11.2 Nausea with vomiting, unspecified; I87.1 Compression of vein; G12.9 Spinal muscular atrophy, unspecified; I45.10 Unspecified right bundle-branch block; K59.00 Constipation, unspecified; E11.9 Type 2 diabetes mellitus without complications; R51.9 Headache, unspecified; Z88.0 Allergy status to penicillin; Z88.1 Allergy status to other antibiotic agents; Z88.2 Allergy status to sulfonamides; Z88.8 Allergy status to other drugs, medicaments and biological substances; Z79.83 Long term (current) use of bisphosphonates; Z79.899 Other long term (current) drug therapy; Z79.4 Long term (current) use of insulin
CPT/HCPCS: 74177; 80053; 81001; 82010; 83605; 83690; 84702; 85025; 87486; 87581; 87633; 87798; 93005; 96361; 96374; 96375; 99285; J1885; J2405; J2765; Q9967

== ENCOUNTER 2025-01-25 00:18 | Emergency (ER) | payer OTHER ==
[~2025-01-25] VITALS: Ht 175.3 cm; Wt 83.1 kg
[~2025-01-25 00:18] MED LIST changes: +HUMA100I3 SC
[2025-01-25 08:54] VITALS: TEMP 97.5
[2025-01-25] MEDS ORDERED: INSULANT (09:56)
[2025-01-25] MEDS ORDERED: SEMA1PEN4 (09:56)
[2025-01-25] MEDS: ONDANSETRON 4MG 2ML VIAL IV ONE (10:25)
[2025-01-25] MEDS: ACETAMINOPHEN 325 MG TAB PO ONE (10:26)
[2025-01-25] MEDS: NS (Normal Saline) 0.9% 1,000 ML IV ONE (10:26)
[2025-01-25 10:29] LABS: BASO # 0.0 10^3/uL (0.0-0.2); BASO % 0.5 % (0.0-1.0); EOS # 0.4 10^3/uL (0.0-0.5); EOS % 5.9 % (0.0-3.0); LYMPH # 2.1 10^3/uL (1.5-5.0); LYMPH % 32.8 % (24.0-44.0); MONO # 0.5 10^3/uL (0.0-0.8); MONO % 7.3 % (2.0-8.0); NEUTROPHILS # 3.4 10^3/uL (1.5-8.5); NEUTROPHILS % 53.3 % (36.0-66.0); PLATELET COUNT, AUTOMATED 364 10^3/uL (150-450)
[2025-01-25 11:09] LABS: HCG, SERUM QUALITATIVE NEGATIVE (NEGATIVE)
[2025-01-25 11:30] LABS: HCG, SERUM QUANTITATIVE < 2.6 MIU/ML (<4.2)
[2025-01-25 11:32] LABS: ALT/SGPT 18 U/L (7.0-40); AST/SGOT 17 U/L (<34); CALCIUM LEVEL 9.4 MG/DL (8.5-10.1); CARBON DIOXIDE LEVEL 29 MMOL/L (20-31); CHLORIDE LEVEL 105 MMOL/L (98-107); CREATININE FOR GFR 0.81 MG/DL (0.55-1.30); GLOMERULAR FILTRATION RATE > 90.0 (>60); POTASSIUM SERUM 4.0 MMOL/L (3.5-5.1); SODIUM LEVEL 143 MMOL/L (136-145)
[2025-01-25] MEDS ORDERED: ISOVUE-370 76% 100 ML VIAL As Ordered ONE (12:49)
[2025-01-25] MEDS: MORPHINE 4 MG/ML 1 ML VIAL IV PRN (12:50)
[2025-01-25] MEDS ORDERED: COLA100C5 PO (15:05)
[2025-01-25] MEDS ORDERED: ONDA-282 PO (15:14)
[2025-01-25 15:15] VITALS: BP 104/53
[2025-01-25 15:16] VITALS: O2SAT 98
== END 2025-01-25 15:26 | disposition home or self-care (01) ==
LOC: M ED 00:18
DX: R10.9 Unspecified abdominal pain (principal); T50.995A Adverse effect of other drugs, medicaments and biological substances, initial encounter; R11.2 Nausea with vomiting, unspecified; K59.00 Constipation, unspecified; E10.9 Type 1 diabetes mellitus without complications; F41.9 Anxiety disorder, unspecified; G43.909 Migraine, unspecified, not intractable, without status migrainosus; K21.9 Gastro-esophageal reflux disease without esophagitis; Z79.83 Long term (current) use of bisphosphonates; Z79.899 Other long term (current) drug therapy
CPT/HCPCS: 74177; 76856; 80047; 80048; 80076; 83605; 83690; 84702; 84703; 85025; 93005; 93976; 96361; 96374; 96375; 99285; J2405; Q9967

== ENCOUNTER → 2025-02-01 | Outpatient (CLI) | payer OTHER ==
[~2025-02-01] MED LIST changes: +ACET-897 PO; +COLA100C5 PO; +DEBL1TAB PO; +DOCU100C16 PO; +INSULANT SC; +METO10TA2 PO; +NITR100C2 PO; +SEMA1PEN4
== END ==
LOC: M RAD 07:16
PROVIDERS: ATTEND Surgery
DX: K80.20 Calculus of gallbladder without cholecystitis without obstruction (principal)
CPT/HCPCS: 78227; A9537

== ENCOUNTER 2025-02-04 21:25 | Inpatient (IN) | payer OTHER ==
[~2025-02-04] VITALS: Ht 175.3 cm; Wt 82.2 kg
[~2025-02-04 21:25] MED LIST changes: -ACET-897 PO; -DEBL1TAB PO; -DOCU100C16 PO; -IBUP-1022 PO; +IBUP600T42 PO; -METO10TA2 PO; -NITR100C2 PO
[2025-02-04 23:05] LABS: BASO # 0.1 10^3/uL (0.0-0.2); BASO % 1.1 % (0.0-1.0); EOS # 0.5 10^3/uL (0.0-0.5); EOS % 8.3 % (0.0-3.0); LYMPH # 3.0 10^3/uL (1.5-5.0); LYMPH % 46.8 % (24.0-44.0); MONO # 0.4 10^3/uL (0.0-0.8); MONO % 6.0 % (2.0-8.0); NEUTROPHILS # 2.5 10^3/uL (1.5-8.5); NEUTROPHILS % 37.6 % (36.0-66.0); PLATELET COUNT, AUTOMATED 281 10^3/uL (150-450)
[2025-02-04] MEDS: KETOROLAC 30 MG/ML 1 ML VIAL IV ONE (23:52)
[2025-02-04] MEDS: ONDANSETRON 4MG 2ML VIAL IV ONE (23:52)
[2025-02-05 00:19] LABS: ALT/SGPT 21.0 U/L (7.0-40); AST/SGOT 21.0 U/L (<34); CALCIUM LEVEL 9.1 MG/DL (8.5-10.1); CARBON DIOXIDE LEVEL 30.0 MMOL/L (20-31); CHLORIDE LEVEL 104.0 MMOL/L (98-107); CREATININE FOR GFR 0.9 MG/DL (0.55-1.30); GLOMERULAR FILTRATION RATE 87.1 (>60); POTASSIUM SERUM 4.1 MMOL/L (3.5-5.1); SODIUM LEVEL 143.0 MMOL/L (136-145)
[2025-02-05] MEDS ORDERED: ISOVUE-370 76% 100 ML VIAL As Ordered ONE (00:56)
[2025-02-05] MEDS: MORPHINE 4 MG/ML 1 ML VIAL IV PRN (00:56)
[2025-02-05] MEDS ORDERED: MORPHINE 4 MG/ML 1 ML VIAL IV PRN (03:45)
[2025-02-05] MEDS ORDERED: DEBL1TAB PO (04:49)
[2025-02-05] MEDS ORDERED: DOCU100C16 PO (04:49)
[2025-02-05] MEDS ORDERED: NITR100C2 PO (04:49)
[2025-02-05] MEDS ORDERED: ACET-897 PO (04:49)
[2025-02-05] MEDS ORDERED: METO10TA2 PO (04:49)
[2025-02-05] MEDS ORDERED: HOME MED LIST COMPLETE! XX SCH (04:50)
[2025-02-05] MEDS: NS (Normal Saline) 0.9% 1,000 ML IV SCH (05:13)
[2025-02-05] MEDS: LevoFLOXacin IV 500 MG in IV 1 EA IV ONE (05:13)
[2025-02-05 06:03] VITALS: BP 106/55; TEMP 97.5; O2SAT 99
[2025-02-05] MEDS: KETOROLAC 30 MG/ML 1 ML VIAL IV SCH (06:26)
[2025-02-05] MEDS: SUCRALFATE 1 GM TAB PO SCH (06:26)
[2025-02-05 07:49] VITALS: BP 106/59; TEMP 97.6; O2SAT 100
[2025-02-05] MEDS: PANTOPRAZOLE 40MG VIAL IV SCH (08:48)
[2025-02-05 11:51] VITALS: BP 102/53; TEMP 98.1; O2SAT 100
[2025-02-05] MEDS: ONDANSETRON 4MG ORAL DISINTEGRATING TAB PO PRN (13:33)
[2025-02-05] MEDS ORDERED: LevoFLOXacin IV 500 MG in IV 1 EA IV SCH (14:15)
[2025-02-05] MEDS: MORPHINE 2 MG/ML 1 ML VIAL IV PRN (16:55)
[2025-02-05 17:00] VITALS: BP 118/67; TEMP 98.2; O2SAT 99
[2025-02-05 20:00] VITALS: BP 101/55; TEMP 98.1; O2SAT 98
[2025-02-05] MEDS: KCL 20MEQ IN D5/0.45NS 1000ML 1,000 ML IV SCH (22:26)
[2025-02-06] VITALS: BP 106/51; TEMP 98.3; O2SAT 96
[2025-02-06] MEDS: FAMOTIDINE IV BAG 20 MG in IV 1 EA IV SCH (00:06)
[2025-02-06] MEDS: LevoFLOXacin IV 750 MG in IV 1 EA IV SCH (05:44)
[2025-02-06 05:45] VITALS: BP 99/50; TEMP 97.5; O2SAT 97
[2025-02-06 07:14] LABS: PLATELET COUNT, AUTOMATED 247 10^3/uL (150-450)
[2025-02-06 08:00] VITALS: BP 108/57; TEMP 97.9; O2SAT 100
[2025-02-06 08:20] LABS: CALCIUM LEVEL 7.8 MG/DL (8.5-10.1); CARBON DIOXIDE LEVEL 28 MMOL/L (20-31); CHLORIDE LEVEL 108 MMOL/L (98-107); CREATININE FOR GFR 0.85 MG/DL (0.55-1.30); GLOMERULAR FILTRATION RATE > 90.0 (>60); POTASSIUM SERUM 4.7 MMOL/L (3.5-5.1); SODIUM LEVEL 143 MMOL/L (136-145)
[2025-02-06] MEDS ORDERED: E-Z-HD 98% w/w 340 GM SUSP BTL As Ordered ONE (08:29)
[2025-02-06] MEDS ORDERED: E-Z-PAQUE 96% w/w SUSP 176 GM BTL As Ordered ONE (08:29)
[2025-02-06] MEDS ORDERED: E-Z-GAS II EFFERVESCENT PACKET (SODIUM BICARB./CITRIC ACID/SIMETHICONE) As Ordered ONE (08:36)
[2025-02-06 12:00] VITALS: BP 109/58; TEMP 98.2; O2SAT 100
[2025-02-06] MEDS: MORPHINE 4 MG/ML 1 ML VIAL IV PRN (12:37)
[2025-02-06 16:15] VITALS: BP 114/64; TEMP 97.9; O2SAT 100
[2025-02-06 20:00] VITALS: BP 109/69; TEMP 98.7; O2SAT 99
[2025-02-07] VITALS (10 sets, daily range): BP systolic 104–123; BP diastolic 50–68; TEMP 97.2–99.1; O2SAT 95–100
[2025-02-07 08:06] LABS: PLATELET COUNT, AUTOMATED 248 10^3/uL (150-450)
[2025-02-07 08:20] LABS: CALCIUM LEVEL 8.4 MG/DL (8.5-10.1); CARBON DIOXIDE LEVEL 29.0 MMOL/L (20-31); CHLORIDE LEVEL 107.0 MMOL/L (98-107); CREATININE FOR GFR 0.9 MG/DL (0.55-1.30); GLOMERULAR FILTRATION RATE 87.1 (>60); POTASSIUM SERUM 3.9 MMOL/L (3.5-5.1); SODIUM LEVEL 143.0 MMOL/L (136-145)
[2025-02-07] MEDS ORDERED: ACETAMINOPHEN 1000MG/100ML IV BAG As Ordered ONE (08:41)
[2025-02-07] MEDS ORDERED: SUGAMMADEX SODIUM 500 MG/5 ML VIAL As Ordered ONE (08:49)
[2025-02-07] MEDS ORDERED: ROCURONIUM BROMIDE 50MG/5ML VIAL As Ordered ONE (08:50)
[2025-02-07] MEDS ORDERED: LIDOCAINE 2% 100 MG/5 ML SDV (FOR ANES.) As Ordered ONE (08:50)
[2025-02-07] MEDS ORDERED: ONDANSETRON 4MG 2ML VIAL As Ordered ONE (08:51)
[2025-02-07] MEDS ORDERED: dexAMETHasone 4 MG/ML 1 ML VIAL As Ordered ONE (08:51)
[2025-02-07] MEDS ORDERED: KETOROLAC 30 MG/ML 1 ML VIAL As Ordered ONE (08:51)
[2025-02-07] MEDS ORDERED: MIDAZOLAM INJ 2 MG/2 ML VIAL As Ordered ONE (08:53)
[2025-02-07] MEDS: INDOCYANINE GREEN 25 MG VIAL As Ordered ONE (10:30)
[2025-02-07 10:34] LABS: URINE PREG TEST NEGATIVE (NEGATIVE)
[2025-02-07] MEDS ORDERED: DEXTROSE 50% 50 ML SYRINGE As Ordered ONE (10:35)
[2025-02-07] MEDS ORDERED: PHENYLephrine 500MCG 5ML (100MCG/ML) SYRINGE As Ordered ONE (10:56)
[2025-02-07] MEDS ORDERED: HYDROmorphone HCL 2 MG/ML 1 ML VIAL As Ordered ONE (11:14)
[2025-02-07] MEDS: INSULIN LISPRO (NovoLOG) PER UNIT SC PRN (12:23)
[2025-02-07] MEDS: HYDROMORPHONE HCL 0.5 MG/0.5 ML SYRINGE IV PRN ×2 (12:24→14:05)
[2025-02-07] MEDS: ONDANSETRON 4MG 2ML VIAL IV PRN (12:24)
[2025-02-07] MEDS: LR 1,000 ML IV SCH (16:04)
[2025-02-07] MEDS: PERCOCET 5MG/325MG TAB PO PRN (20:56)
[2025-02-08 00:03] VITALS: BP 105/60; TEMP 97.8; O2SAT 98
[2025-02-08 04:00] VITALS: BP 97/56; TEMP 98; O2SAT 98
[2025-02-08 07:39] LABS: PLATELET COUNT, AUTOMATED 264 10^3/uL (150-450)
[2025-02-08 07:58] LABS: CALCIUM LEVEL 8.4 MG/DL (8.5-10.1); CARBON DIOXIDE LEVEL 28 MMOL/L (20-31); CHLORIDE LEVEL 106 MMOL/L (98-107); CREATININE FOR GFR 0.84 MG/DL (0.55-1.30); GLOMERULAR FILTRATION RATE > 90.0 (>60); POTASSIUM SERUM 3.8 MMOL/L (3.5-5.1); SODIUM LEVEL 143 MMOL/L (136-145)
[2025-02-08 08:00] VITALS: BP 105/62; TEMP 97.5; O2SAT 97
[2025-02-08] MEDS: MOM 30 ML SUSPENSION UDC PO PRN (09:39)
== END 2025-02-08 12:00 | disposition home or self-care (01) | DRG 263 ==
LOC: M ED 21:25 → M ED INP 02-05 03:43 → M MS4PR 02-05 06:05 → OBSVTOIN 02-05 14:14 → EEVIPCON 02-05 14:14 → M PED 02-05 16:40
PROVIDERS: ADMIT Surgery; ATTEND Surgery
PROC: 8E0W4CZ Robotic Assisted Procedure of Trunk Region, Percutaneous Endoscopic Approach (ICD-10-PCS; 2025-02-07)
PROC: 0FT44ZZ Resection of Gallbladder, Percutaneous Endoscopic Approach (ICD-10-PCS; principal; 2025-02-07 10:30)
DX: K80.20 Calculus of gallbladder without cholecystitis without obstruction (principal); E11.43 Type 2 diabetes mellitus with diabetic autonomic (poly)neuropathy; Z88.8 Allergy status to other drugs, medicaments and biological substances; Z79.899 Other long term (current) drug therapy; Z79.4 Long term (current) use of insulin; Z88.0 Allergy status to penicillin; Z88.2 Allergy status to sulfonamides

== ENCOUNTER → 2025-04-14 | Outpatient (CLI) | payer OTHER ==
[~2025-04-14] MED LIST changes: +ACET-897 PO; +DEBL1TAB PO; +DOCU100C16 PO; +ISOVUE-370 76% 100 ML VIAL As Ordered ONE; +METO10TA2 PO; +NITR100C2 PO
== END ==
LOC: M RAD 13:57
PROVIDERS: ATTEND Surgery Vascular Surgery
DX: K55.1 Chronic vascular disorders of intestine (principal); R93.89 Abnormal findings on diagnostic imaging of other specified body structures
CPT/HCPCS: 74174; 82565; Q9967